=== PATIENT | male | born 1950 | race Caucasian/White ===

== ENCOUNTER 2018-01-03 16:14 | Observation (INO) | payer OTHER, MEDICARE ==
[2018-01-03] MEDS ORDERED: NITROGLYCERIN 0.4 MG/TAB SL ONE ×2 (16:56→17:43)
[2018-01-03 17:06] LABS: Absolute Lymphocytes (CBC) 1.3 K/uL (0.7-4.9); Absolute Monocytes 0.7 K/uL (0.1-1.3); Absolute Neutrophil 3.2 K/uL (1.8-8.0); Basophils % 0.9 % (0-1.3); Eosinophils % 10.6 % (0-4.4); Hematocrit 40.3 % (39.6-49.0); Lymphocytes % 21.8 % (15.3-44.8); MCH 32.4 pg (27.0-35.0); MCV 94.5 fL (80-100); MPV 7.8 fL (7.6-11.3); Monocytes % 11.2 % (3.3-12.3); RBC Red Blood Cell Count 4.27 M/uL (4.33-5.43)
[2018-01-03 17:10] LABS: Protime INR 1.03
[2018-01-03 17:22] LABS: Albumin 3.9 g/dL (3.2-5.5); Bilirubin Direct 0.1 mg/dL (0-0.2); Bilirubin Total 0.5 mg/dL (0.3-1.2); Magnesium 1.8 mg/dL (1.8-2.5); Protein, Total 7.2 g/dL (6.0-8.3)
[2018-01-03 17:25] LABS: CKMB Creatine Kinase MB 1.8 ng/ml (0.3-4.0)
[2018-01-03 17:58] LABS: Urine Blood NEGATIVE (NEG); Urine Glucose NEGATIVE (NEG); Urine Protein NEGATIVE (NEG)
[2018-01-03] MEDS ORDERED: MORPHINE 4 MG/ML SYR ONE (18:19)
[2018-01-03] MEDS ORDERED: ONDANSETRON 4 MG/2 ML VIAL ONE (18:19)
[2018-01-03 18:25] LABS: Phenytoin (Dilantin) Level 12.6 ug/ml (10.0-20.0)
--- NOTE | 2018-01-03 19:21 | EDPHYS ---
Physician Documentation [facility] Name: Robbie Dela Cruz Age: 67 yrs Sex: Male : 1950 Arrival Date: 01/03/2018 Time: 16:19 Bed 6 Private MD: ED Physician Ion Shrestha HPI: 01/03 17:00 This 67 yrs old Male presents to ER via EMS with complaints of Chest Pain > pm1 28 y/o. 17:00 The patient or guardian reports chest pain that is located primarily in the anterior pm1 aspect of left upper chest. Onset: this morning, at 08:00. The pain does not radiate. Associated signs and symptoms: Pertinent positives: Dizziness with standing, Pertinent negatives: abdominal pain, cough, diaphoresis, headache, nausea, shortness of breath, vomiting. The chest pain is described as aching. Duration: The patient or guardian reports a single episode, that is still ongoing, and worsening. Modifying factors: The symptoms are alleviated by nothing. the symptoms are aggravated by nothing. Severity of pain: in the emergency department the pain has improved is a 6 / 10. EMS care prior to arrival includes: aspirin, nitroglycerin, x 1, with partial relief of the chest pain. The patient has not recently seen a physician, the patient's primary care provider is Dr. Tello. Historical: - Allergies: 16:29 No Known Drug Allergies; ph - Home Meds: 16:29 amlodipine-benazepril 5-20 mg Oral cap 1 cap once daily [Active]; benztropine 0.5 mg ph Oral tab 1 tab 2 times per day [Active]; clonazepam 1 mg Oral tab 1 tab nightly [Active]; excitalopram 20mg daily [Active]; Latuda 120 mg Oral tab 1 tab once daily [Active]; lorapine 50mg 2 tab nightly [Active]; metoprolol tartrate 25 mg Oral tab 1 tab 2 times per day [Active]; phenobarbital 32.4 mg Oral tab 1 tab 3 times per day [Active]; Phenytoin 100mg Oral 1 tabs 3 times per day [Active]; - PMHx: 16:29 colon cancer; Depression; Hypertension; Schizophrenia; ph - Immunization history:: Adult Immunizations unknown. - Social history:: Smoking status: Patient/guardian denies using tobacco. - Ebola Screening: : No symptoms or risks identified at this time. ROS: 17:00 Constitutional: Negative for fever, chills, and weight loss, Eyes: Negative for injury, pm1 pain, redness, and discharge, ENT: Negative for injury, pain, and discharge, Neck: Negative for injury, pain, and swelling, Respiratory: Negative for shortness of breath, cough, wheezing, and pleuritic chest pain, Abdomen/GI: Negative for abdominal pain, nausea, vomiting, diarrhea, and constipation. 17:00 Back: Negative for injury and pain, : Negative for injury, bleeding, discharge, and swelling, MS/Extremity: Negative for injury and deformity, Skin: Negative for injury, rash, and discoloration, Neuro: Negative for headache, weakness, numbness, tingling, and seizure. 17:00 Cardiovascular: Positive for chest pain, Negative for edema, orthopnea, palpitations. Exam: 17:00 Constitutional: This is a well developed, well nourished patient who is awake, alert, pm1 and in no acute distress. Head/Face: Normocephalic, atraumatic. Eyes: Pupils equal round and reactive to light, extra-ocular motions intact. Lids and lashes normal. Conjunctiva and sclera are non-icteric and not injected. Cornea within normal limits. Periorbital areas with no swelling, redness, or edema. ENT: Nares patent. No nasal discharge, no septal abnormalities noted. Tympanic membranes are normal and external auditory canals are clear. Oropharynx with no redness, swelling, or masses, exudates, or evidence of obstruction, uvula midline. Mucous membranes moist. Neck: Trachea midline, no thyromegaly or masses palpated, and no cervical lymphadenopathy. Supple, full range of motion without nuchal rigidity, or vertebral point tenderness. No Meningismus. Chest/axilla: Normal chest wall appearance and motion. Nontender with no deformity. No lesions are appreciated. Cardiovascular: Regular rate and rhythm with a normal S1 and S2. No gallops, murmurs, or rubs. No pulse deficits. Respiratory: Lungs have equal breath sounds bilaterally, clear to auscultation and percussion. No rales, rhonchi or wheezes noted. No increased work of breathing, no retractions or nasal flaring. Abdomen/GI: Soft, non-tender, with normal bowel sounds. No distension or tympany. No guarding or rebound. No evidence of tenderness throughout. Back: No spinal tenderness. No costovertebral tenderness. Full range of motion. Skin: Warm, dry with normal turgor. Normal color with no rashes, no lesions, and no evidence of cellulitis. MS/ Extremity: Pulses equal, no cyanosis. Neurovascular intact. Full, normal range of motion except for flexed contracture to left wrist 17:00 ECG was reviewed by the Attending Physician. NSR 17:00 Neuro: Orientation: is normal, Motor: moves all fours, strength is 5/5 in all extremities. Vital Signs: 16:25 BP 152 / 91; Pulse 78; Resp 18; Temp 98.7; Pulse Ox 100% on R/A; Weight 102.97 kg; ph Height 6 ft. 0 in. (182.88 cm); Pain 7/10; 17:15 BP 154 / 92; Pulse 73; Resp 17; Pulse Ox 95% on R/A; dh3 17:41 BP 144 / 88; Pulse 85; Resp 16; Pulse Ox 97% on R/A; dh3 17:44 Pain 7/10; hb 18:08 BP 165 / 89; Pulse 78; Resp 16; Pulse Ox 100% on R/A; Pain 7/10; hb 18:36 BP 143 / 77 RA; Pulse 75; Resp 17; Pulse Ox 98% on R/A; dh3 18:36 BP 152 / 84 LA; Pulse 75; Resp 18; Pulse Ox 98% on R/A; dh3 19:50 BP 174 / 92; Pulse 69; Resp 12; Pulse Ox 96% on R/A; rv 19:57 BP 174 / 92; Pulse 70; Resp 12; Pulse Ox 96% ; Pain 0/10; ao 20:55 BP 135 / 96; Pulse 72; Resp 18; Pulse Ox 100% on R/A; Pain 0/10; ao 16:25 Body Mass Index 30.79 (102.97 kg, 182.88 cm) ph MDM: 16:43 Patient medically screened. pm1 17:00 Data reviewed: vital signs. Data interpreted: Pulse oximetry: on room air is 100 %. pm1 Interpretation: normal. 19:19 Physician consultation: Marlon Baltazar MD was contacted at 19:20, regarding admission, pm1 patient's condition, and will see patient in ED. 01/03 16:37 Order name: Basic Metabolic Panel pm1 01/03 16:37 Order name: BNP pm1 01/03 16:37 Order name: CBC with Diff pm1 01/03 16:37 Order name: Ckmb pm1 01/03 16:37 Order name: CPK pm1 01/03 16:37 Order name: LFT's; Complete Time: 17:40 pm1 01/03 16:37 Order name: Magnesium; Complete Time: 17:40 pm1 01/03 16:37 Order name: PT-INR; Complete Time: 17:23 pm1 01/03 16:37 Order name: Ptt, Activated; Complete Time: 17:23 pm1 01/03 16:37 Order name: Troponin (emerg Dept Use Only); Complete Time: 17:23 pm1 01/03 16:37 Order name: Basic Metabolic Panel; Complete Time: 17:40 EDMS 01/03 16:37 Order name: BNP B-Type Natriuretic Peptide; Complete Time: 17:40 EDMS 01/03 16:37 Order name: CBC with Automated Diff; Complete Time: 17:11 EDMS 01/03 16:37 Order name: CKMB Creatine Kinase MB; Complete Time: 17:40 EDMS 02 16:37 Order name: XRAY Chest (1 view); Complete Time: 20:42 pm1 01/03 16:37 Order name: EKG; Complete Time: 16:37 pm1 01/03 16:37 Order name: Creatine Phosphokinase; Complete Time: 17:40 EDMS 02 17:55 Order name: Urine Dipstick--Ancillary (enter results); Complete Time: 18:02 em1 02 18:13 Order name: Dilantin pm1 01/03 18:13 Order name: Phenobarbital pm1 01/03 18:13 Order name: Phenytoin (Dilantin) Level; Complete Time: 18:29 EDMS 01/03 18:13 Order name: Phenobarbital Level; Complete Time: 18:29 EDMS 01/03 18:29 Order name: CT Chest For PE Angio; Complete Time: 20:42 pm1 01/03 21:25 Order name: Troponin I ao 01/03 22:12 Order name: Troponin I EDPR 01/03 16:37 Order name: Cardiac monitoring; Complete Time: 16:52 pm1 01/03 16:37 Order name: EKG - Nurse/Tech; Complete Time: 16:52 pm1 01/03 16:37 Order name: IV Saline Lock; Complete Time: 16:52 pm1 01/03 16:37 Order name: Labs collected and sent; Complete Time: 16:52 pm1 01/03 16:37 Order name: O2 Per Protocol; Complete Time: 16:52 pm1 01/03 16:37 Order name: O2 Sat Monitoring; Complete Time: 16:52 pm1 01/03 16:37 Order name: Urine Dipstick-Ancillary (obtain specimen); Complete Time: 17:48 pm1 Administered Medications: 17:44 Drug: Nitroglycerin 0.4 mg Route: Sublingual; hb 17:53 Drug: Nitroglycerin 0.4 mg Route: Sublingual; hb 18:22 Follow up: Response: No adverse reaction hb 18:21 Drug: morphine 4 mg Route: IVP; Site: right antecubital; hb 21:25 Follow up: Response: No adverse reaction ao 18:22 Drug: Zofran 4 mg Route: IVP; Site: right antecubital; hb 21:26 Follow up: Response: No adverse reaction ao 19:39 Drug: Lovenox 1 mg/kg Route: Sub-Q; Site: left upper abdomen; rv 21:26 Follow up: Response: No adverse reaction ao 19:39 Drug: Metoprolol 25 mg Route: PO; rv 21:27 Follow up: Response: No adverse reaction ao Disposition: 01/04 12:40 Co-signature as Attending Physician, Ion Shrestha MD. Disposition: 01/03/18 19:20 Hospitalization ordered by Ligia Tello for Observation. Preliminary diagnosis is Chest pain, unspecified. - Bed requested for Telemetry/MedSurg (observation). - Status is Observation. ao - Condition is Stable. - Problem is new. - Symptoms have improved. UTI on Admission? No Signatures: Dispatcher [employer] Hanna Davis RN RN kl Hall, Patricia, RN RN ph Ortiz, Alex, RN RN ao Marinas, Patrick, AUDITING MANAGER AUDITING MANAGER pm1 Alta Paredes RN RN hb Starr, Gregory, MD MD Taco Muniz RN RN rv Corrections: (The following items were deleted from the chart) 01/03 20:35 19:20 Hospitalization Ordered by A Elisha DELUNA for Observation. Preliminary diagnosis is kl Chest pain, unspecified. Bed requested for Telemetry/MedSurg (observation). Status is Observation. Condition is Stable. Problem is new. Symptoms have improved. UTI on Admission? No. pm1 22:15 20:35 01/03/2018 19:20 Hospitalization Ordered by A Elisha DELUNA for Observation. ao Preliminary diagnosis is Chest pain, unspecified. Bed requested for Telemetry/MedSurg (observation). Status is Observation. Condition is Stable. Problem is new. Symptoms have improved. UTI on Admission? No. kl
--- NOTE | 2018-01-03 19:21 | ER ---
Nurse's Notes [facility] Name: Robbie Dela Cruz Age: 67 yrs Sex: Male : 1950 Arrival Date: 01/03/2018 Time: 16:19 Bed 6 Private MD: Diagnosis: Chest pain, unspecified Presentation: 01/03 16:20 Presenting complaint: EMS states: Began having L sided chest pain this morning while ph watching television, describes pain as "deep and shallow", denies radiation, N/V, SOB, reported dizziness upon standing, 12 lead showed NSR, 324 aspirin and SL nitro x 1 administered and pain improved from 6/10 down from 8/10. Transition of care: patient was not received from another setting of care. Onset of symptoms was January 03, 2018. Risk Assessment: Do you want to hurt yourself or someone else? Patient reports no desire to harm self or others. Initial Sepsis Screen: Does the patient meet any 2 criteria? No. Patient's initial sepsis screen is negative. Does the patient have a suspected source of infection? No. Patient's initial sepsis screen is negative. Care prior to arrival: Medication(s) given: ASA, 325 mg, Nitroglycerin, 0.4 mg SL x 1. 16:20 Method Of Arrival: EMS: [facility] ph 16:20 Acuity: [facility] 3 ph 16:25 Note PCP Elisha. Historical: - Allergies: 16:29 No Known Drug Allergies; ph - Home Meds: 16:29 amlodipine-benazepril 5-20 mg Oral cap 1 cap once daily [Active]; benztropine 0.5 mg ph Oral tab 1 tab 2 times per day [Active]; clonazepam 1 mg Oral tab 1 tab nightly [Active]; excitalopram 20mg daily [Active]; Latuda 120 mg Oral tab 1 tab once daily [Active]; lorapine 50mg 2 tab nightly [Active]; metoprolol tartrate 25 mg Oral tab 1 tab 2 times per day [Active]; phenobarbital 32.4 mg Oral tab 1 tab 3 times per day [Active]; Phenytoin 100mg Oral 1 tabs 3 times per day [Active]; - PMHx: 16:29 colon cancer; Depression; Hypertension; Schizophrenia; ph - Immunization history:: Adult Immunizations unknown. - Social history:: Smoking status: Patient/guardian denies using tobacco. - Ebola Screening: : No symptoms or risks identified at this time. Screenin:30 Abuse screen: Denies threats or abuse. Denies injuries from another. Nutritional ph screening: No deficits noted. Tuberculosis screening: No symptoms or risk factors identified. Fall Risk None identified. Assessment: 16:31 General: Appears in no apparent distress. comfortable, well groomed, Behavior is calm, ph cooperative, appropriate for age, Denies fever, feeling ill. Pain: Complains of pain in anterior aspect of left upper chest and left breast Pain does not radiate. Pain currently is 7 out of 10 on a pain scale. Pain began " this morning". Neuro: Level of Consciousness is awake, alert, obeys commands, Oriented to person, place, time, situation, Pt noted to have flaccidity to L hand and slurred speech, pt reports that this is his baseline, states, " I was born like this.". Cardiovascular: Reports chest pain, lightheadedness, Denies nausea, palpitations, shortness of breath, vomiting, Capillary refill < 3 seconds Patient's skin is warm and dry. Rhythm is regular Chest pain is located in left anterior chest wall. Respiratory: Airway is patent Respiratory effort is even, unlabored, Respiratory pattern is regular, symmetrical. GI: No signs and/or symptoms were reported involving the gastrointestinal system. Derm: Skin is intact, is healthy with good turgor, Skin is pink, warm \\T\\ dry. Musculoskeletal: Circulation, motion, and sensation intact. Range of motion: intact in all extremities. 16:50 Reassessment: Nitro ordered, medication unavailable in [facility], request faxed to pharmacy. JOHANNA Rooney notified. 17:45 Reassessment: Pt reports pain 6-7/10, Nitro administered as ordered. JOHANNA samuels notified. 17:53 Reassessment: Pt reports pain unchanged, nitro repeated. JOHANNA Rooney notified. 18:09 Reassessment: Pt reports pain still 7/10. JOHANNA Rooney notified at bedside. 18:23 Reassessment: Pt reports pain 8/10, JOHANNA Rooney notified at bedside, morphine and zofran hb administered as ordered. VSS. Family remains at bedside. 19:49 General: Appears in no apparent distress. comfortable, Behavior is calm, cooperative, ao appropriate for age. Pain: Complains of pain in chest Pain currently is 6 out of 10 on a pain scale. Neuro: Level of Consciousness is awake, alert, obeys commands, Oriented to person, place, time, situation, Moves all extremities. Speech is normal, Facial symmetry appears normal. Cardiovascular: Heart tones S1 S2 Capillary refill < 3 seconds Patient's skin is warm and dry. Chest pain is located in left anterior chest wall. Respiratory: Airway is patent Respiratory effort is even, unlabored, Respiratory pattern is regular, symmetrical. GI: Abdomen is non-distended. : No signs and/or symptoms were reported regarding the genitourinary system. EENT: No signs and/or symptoms were reported regarding the EENT system. Derm: Skin is intact, is healthy with good turgor, Skin is pink, warm \\T\\ dry. Musculoskeletal: Circulation, motion, and sensation intact. Range of motion: intact in all extremities. 20:55 Reassessment: Patient appears in no apparent distress at this time. Patient and/or ao family updated on plan of care and expected duration. Pain level reassessed. Patient is alert, oriented x 3, equal unlabored respirations, skin warm/dry/pink. Patient to be taking to room as he get admitted to the hospital. 22:00 Reassessment: Report called to WHIT Rawls. ao Vital Signs: 16:25 BP 152 / 91; Pulse 78; Resp 18; Temp 98.7; Pulse Ox 100% on R/A; Weight 102.97 kg; ph Height 6 ft. 0 in. (182.88 cm); Pain 7/10; 17:15 BP 154 / 92; Pulse 73; Resp 17; Pulse Ox 95% on R/A; dh3 17:41 BP 144 / 88; Pulse 85; Resp 16; Pulse Ox 97% on R/A; dh3 17:44 Pain 7/10; hb 18:08 BP 165 / 89; Pulse 78; Resp 16; Pulse Ox 100% on R/A; Pain 7/10; hb 18:36 BP 143 / 77 RA; Pulse 75; Resp 17; Pulse Ox 98% on R/A; dh3 18:36 BP 152 / 84 LA; Pulse 75; Resp 18; Pulse Ox 98% on R/A; dh3 19:50 BP 174 / 92; Pulse 69; Resp 12; Pulse Ox 96% on R/A; rv 19:57 BP 174 / 92; Pulse 70; Resp 12; Pulse Ox 96% ; Pain 0/10; ao 20:55 BP 135 / 96; Pulse 72; Resp 18; Pulse Ox 100% on R/A; Pain 0/10; ao 16:25 Body Mass Index 30.79 (102.97 kg, 182.88 cm) ph ED Course: 16:19 Patient arrived in ED. ph 16:23 Inserted saline lock: 20 gauge in right antecubital area, using aseptic technique. dh3 Blood collected. 16:25 Triage completed. ph 16:30 Arm band placed on. EKG completed in triage. Results shown to MD. ph 16:31 Patient has correct armband on for positive identification. Placed in gown. Bed in low ph position. Call light in reach. Side rails up X 1. engineering instructor on. Pulse ox on. NIBP on. Warm blanket given. 16:32 EKG done, by ED staff, reviewed by Ion Shrestha MD. dh3 16:37 Toribio Mcgregor NP is PHCP. pm1 16:37 Ion Shrestha MD is Attending Physician. pm1 16:54 Initial lab(s) drawn, by hi, sent to lab. dh3 16:56 Patient maintains SpO2 saturation greater than 95% on room air. ph 16:57 X-ray completed. Portable x-ray completed in exam room. Patient tolerated procedure mh1 well. 16:58 XRAY Chest (1 view) In Process Unspecified. EDMS 17:48 Alta Paredes, WHIT is Primary Nurse. hb 18:54 CT Chest For PE Angio In Process Unspecified. EDMS 19:20 Ligia Tello MD is Hospitalizing Provider. pm1 22:13 No provider procedures requiring assistance completed. Patient admitted, IV remains in ao place. Administered Medications: 17:44 Drug: Nitroglycerin 0.4 mg Route: Sublingual; hb 17:53 Drug: Nitroglycerin 0.4 mg Route: Sublingual; hb 18:22 Follow up: Response: No adverse reaction hb 18:21 Drug: morphine 4 mg Route: IVP; Site: right antecubital; hb 21:25 Follow up: Response: No adverse reaction ao 18:22 Drug: Zofran 4 mg Route: IVP; Site: right antecubital; hb 21:26 Follow up: Response: No adverse reaction ao 19:39 Drug: Lovenox 1 mg/kg Route: Sub-Q; Site: left upper abdomen; rv 21:26 Follow up: Response: No adverse reaction ao 19:39 Drug: Metoprolol 25 mg Route: PO; rv 21:27 Follow up: Response: No adverse reaction ao Outcome: 19:20 Decision to Hospitalize by Provider. pm1 22:14 Admitted to Med/surg accompanied by tech, room 204, with chart, Report called to michael Rawls RN 22:14 Condition: stable 22:14 Instructed on the need for admit. 22:15 Patient left the ED. ao Signatures: Dispatcher [employer] EDMS Tessy Box 1 Sosa Espinosa, WHIT SHERMAN Brian Lebron RN RN ao Marinas, Patrick, DEPUTY FIRE CHIEF DEPUTY FIRE CHIEF pm1 Alta Paredes RN RN Tana Rogers 3 Taco Muniz RN RN rv
[2018-01-03] MEDS ORDERED: METOPROLOL TAR 25 MG TAB ONE (19:30)
[2018-01-03] MEDS ORDERED: ENOXAPARIN 100 MG/ML SYR SQ ONE (19:31)
--- NOTE | 2018-01-03 20:39 | RAD REPORT ---
EXAM DESCRIPTION: CT - Chest For Pe Angio - 01/03/2018 6:54 pm CLINICAL HISTORY: Chest pain, shortness of breath Due to technical issues, final report could not be immediately dictated. Findings were telephoned to the referring clinician at the time of the study. COMPARISON: Chest films same date TECHNIQUE: Dynamically enhanced 3 mm thick images of the chest were obtained during administration o f approximately 150mL Isovue 370 IV contrast. Coronal and oblique reconstruction images were generate d and reviewed. Exam utilizes a protocol to evaluate the pulmonary arterial tree. All CT scans are performed using dose optimization technique as appropriate and may include automated exposure control or mA/KV adjustment according to patient size. FINDINGS: No pulmonary emboli are identified. The aorta as imaged shows no acute or suspicious finding. No pericardial thickening or effusion. No infiltrate or mass in the lung parenchyma. No pleural effusion or pleural thickening. No mediastinal or hilar suspicious masses. No chest wall masses or abnormal axillary lymphadenopathy. IMPRESSION: No pulmonary emboli identified. No other significant or suspicious findings.
--- NOTE | 2018-01-03 20:41 | RAD REPORT ---
EXAM DESCRIPTION: RAD - Chest Single View - 01/03/2018 5:00 pm CLINICAL HISTORY: Left-sided chest pain COMPARISON: September 2016 TECHNIQUE: AP portable chest image was obtained 1649 hour . FINDINGS: No peripheral mass, consolidation or failure finding. Right lobectomy surgical changes are present and stable. No acute lung parenchymal process seen. Heart and vasculature are normal. No marely surable pleural effusion and no pneumothorax. No gross bony abnormality seen. No acute aortic finding s suspected. IMPRESSION: No acute cardiopulmonary process. No significant change from comparison.
[2018-01-03] MEDS ORDERED: ACETAMINOPHEN 500 MG TAB PO PRN (21:34)
[2018-01-03] MEDS ORDERED: ONDANSETRON 4 MG/2 ML VIAL IV PRN (21:34)
[2018-01-03 22:27] VITALS: BMI 30.4
[2018-01-03] MEDS: MORPHINE 4 MG/ML SYR IV PRN (23:47)
[2018-01-04 04:57] LABS: Absolute Lymphocytes (CBC) 1.2 K/uL (0.7-4.9); Absolute Monocytes 0.6 K/uL (0.1-1.3); Absolute Neutrophil 3.5 K/uL (1.8-8.0); Basophils % 0.6 % (0-1.3); Hematocrit 40.7 % (39.6-49.0); MCH 32.2 pg (27.0-35.0); MCV 96.7 fL (80-100); MPV 7.8 fL (7.6-11.3); Monocytes % 10.4 % (3.3-12.3); RBC Red Blood Cell Count 4.21 M/uL (4.33-5.43)
[2018-01-04 05:19] LABS: Potassium 4.5 mEq/L (3.6-5.0)
[2018-01-04] MEDS: MORPHINE 4 MG/ML SYR IV PRN (06:01)
[2018-01-04] MEDS ORDERED: ASPIRIN EC 81 MG TAB PO SCH (09:00)
[2018-01-04 09:51] VITALS: O2SAT 94
[2018-01-04] MEDS ORDERED: PHENOBARBITAL 32.4 MG PO SCH (10:00)
[2018-01-04] MEDS ORDERED: PHENYTOIN SODIUM 100 MG PO SCH (10:00)
[2018-01-04] MEDS ORDERED: HOME MED 1 EA UNK (Metoprolol Tartrate [Lopressor*] 25 MG) PO SCH (10:00)
--- NOTE | 2018-01-04 10:42 | EKG ---
Test Date: 2018-01-03 Test Time: 16:27:46 Dining Room Maid: [id number] MEASUREMENT RESULTS: Intervals: Rate: 73 MO: 202 QRSD: 94 QT: 370 QTc: 407 [place]: P: 51 MO: 202 QRS: 30 T: 60 INTERPRETIVE STATEMENTS: Normal sinus rhythm Normal ECG Compared to ECG 09/07/2016 21:36:31 No significant changes Electronically Signed On 01-04-18 10:41:12 CDT by Noe Angeles
--- NOTE | 2018-01-04 11:44 | HP ---
Date of Admission: 01/04/2018 SHORT-STAY SUMMARY Chief Complaint: Chest pain. History Of Present Illness: This is a 67-year-old pleasant male patient, who lives at [facility], started to have chest pain around 2 o'clock yesterday morning. The patient has had intermittent pain throughout the day yesterday and he came into emergency room yesterday evening. After he was evaluated, he was admitted to the hospital. The patient was admitted to telemetry unit. After he was admitted, he had 1 episode of chest pain last night. His pain is lasting for a short period of time. He is not able to tell exactly how long, but he says it just lasts for a short time and then goes away. It is located in the left side of the chest in the precordial region. No radiation of pain. No aggravating or relieving factor. No associated symptoms. Allergies: NO KNOWN ALLERGIES. Medications: List reviewed. Review of Systems: Cardiovascular: As mentioned above. All other systems reviewed and negative. Social History: Negative for smoking, alcohol use. Family History: Significant for hypertension, diabetes, coronary artery disease. Past Surgical History: Significant for right-sided hemicolectomy in September 2014 for colon cancer, hydrocele repair, appendectomy, skin cancer removal, partial lobectomy of the right lung in 1984 and it was not due to cancer. Past Medical History: Significant for seizure disorder, gastroesophageal reflux disease, hypertension, hyperlipidemia, colon cancer, impaired fasting glucose, diverticulosis, bladder hypertonicity, schizophrenia, allergic rhinitis , osteoarthritis at multiple sites. The patient had a cardiac cath done April 2015 and it showed normal coronary arteries. This was done at our hospital and results reviewed. Physical Examination: Vital Signs: Height 6 feet, weight 224 pounds. Temperature 97.6, pulse 66, respiratory rate 18, blood pressure 130/77, oxygen saturation 96% on room air. General: Awake, alert, oriented, not in distress. HEENT: Head atraumatic, normocephalic. Conjunctivae nonerythematous. Sclerae white. Mouth, no thrush or edema noted. Ears/Nose, no mass, lesion, discharge noted. Neck: Supple. No JVD, lymph nodes, bruit, thyromegaly noted. Lungs: Bilateral good equal air entry. Clear to auscultation. No rhonchi. No rales. Heart: Normal heart sounds, no murmur or gallop. Abdomen: Soft, bowel sounds normal. No guarding, rigidity, tenderness, mass, hepatosplenomegaly, distention, or bruit noted. Extremities: No leg edema. No calf tenderness. Skin: No rash, ulcer, cellulitis. Lymphatics: No lymph node enlargement in neck, supraclavicular, infraclavicular region. Neuro: No focal neurological deficit. Chest: Unremarkable. External Genitalia: Deferred. Rectal: Deferred. Laboratory Data: Yesterday; white count 5.8, hemoglobin 13.8, platelets 229. This morning; white count 6.1, hemoglobin 13.6, platelets 224. PT/PTT normal. Today; sodium 135, potassium 4.5, chloride 98, bicarb 30, BUN 15, creatinine 0.90, glucose 97. Troponin less than 0.03 x3. BNP less than 10. Sodium yesterday 131, potassium 4, chloride 98, bicarb 25, BUN 16, creatinine 0.89, glucose 99. Liver function tests unremarkable. Urinalysis negative. Dilantin level 12.6. Phenobarbital level 11.6. Chest x-ray, no acute intrathoracic changes. CAT scan of the chest per PE protocol done in the emergency room, no acute cardiopulmonary changes, no pulmonary embolism. EKG, normal sinus rhythm. No acute ST-T changes. Hospital Course: After the patient was evaluated in the ER, was admitted to the hospital. His VA has been ruled out by getting serial cardiac enzymes. Cardiology consultation has been requested. 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 His chest pain could be due to gastroesophageal reflux disease and I will go ahead and start him on proton pump inhibitor therapy. Discharge Medications And Instructions: 1. Continue all prior home medication. 2. Start pantoprazole 40 mg p.o. daily, take it in the morning on empty stomach, 30 minutes before breakfast. Do not take any medications with this. 3. Follow up at my office in 2 weeks. Final Diagnoses: 1. Chest pain. 2. Gastroesophageal reflux disease. 3. Hypertension. 4. Hyperlipidemia. 5. Colon cancer. 6. Impaired fasting glucose. 7. Diverticulosis. 8. Bladder hypertonicity. 9. Schizophrenia. 10. Allergic rhinitis. 11. Osteoarthritis, multiple sites. 12. Seizure disorder. JEANNIE/MODL Voice ID: [id number] [facility] H[facility]PITALRafi
[2018-01-04 14:23] VITALS: BP 157/80; TEMP 97.8
--- NOTE | 2018-01-04 15:44 | CON ---
Chief Complaint: Chest pain. History Of Present Illness: Mr. Dela Cruz has been having chest pain for about 30 years. He has had a very complete evaluation of it including a cardiac cath that was done almost 3 years ago, April 05. At that point, we knew he had very atypical chest pain and a nuclear stress test indicated apic al ischemia, but the cardiac cath was completely normal. There were not even any early mild atherosc lerotic changes. His arteries were just completely normal. He was a cigarette smoker, but quit when he was in his 20s and he has severe chronic medical problems since . He has cerebral palsy and seizure disorder. He has various musculoskeletal problems, depression, anxiety, mental retardation. Medications: Outpatient medications are naproxen, benztropine, clonazepam, phenobarbital, phenytoin, amlodipine, loxapine, lurasidone, Lexapro, metoprolol, and multivitamin. Allergies: HE HAS NO ALLERGIES. Social History: Alcohol use, none. Illegal drug use, none. Diagnostic Data: Since he has been in the hospital, cardiac enzymes are normal. Electrocardiograms are normal. The patient describes his chest pain is mostly coming on when he eats. He has had a CT angio of his chest that is normal. A chest x-ray that is normal. He has never had gallbladder surge ry. Physical Examination: General: He appears to be older than his stated age, chronically ill. He appears to have mild menta l retardation. Lungs: Clear. Heart: Normal. Abdomen: Soft. Extremities: Normal. Distal pulses are normal. Impression: I do not want to see and get another stress test or cardiac cath. This is clearly not u nstable angina. I would be in favor of doing an ultrasound of the abdomen to see if he has gallstone s. At this point, he already has an echocardiogram ordered, but I strongly recommend we do not do an other stress test. It was false positive last time and we do not have anything compelling us to do a stress test. This is clearly not unstable angina. DUNIA/MOHAMUD Voice ID: [id number] Report ID: [id number]
[2018-01-04] MEDS ORDERED: LOXAPINE PO SCH (21:00)
[2018-01-04] MEDS ORDERED: LURASIDONE HCL 120 MG PO SCH (21:00)
[2018-01-04] MEDS ORDERED: CLONAZEPAM PO SCH (21:00)
[2018-01-04] MEDS ORDERED: BENZTROPINE MESYLATE 0.5 MG PO SCH (21:00)
[2018-01-05] MEDS ORDERED: AMLODIPINE BESYLATE PO SCH (09:00)
[2018-01-05] MEDS ORDERED: ESCITALOPRAM 20 MG PO SCH (09:00)
[2018-01-05] MEDS ORDERED: LYCOPEN PO SCH (09:00)
[2018-01-05] MEDS ORDERED: NAPROXEN 500 MG PO SCH (09:00)
[2018-01-05] MEDS ORDERED: MULTIVIT MIN PO SCH (09:00)
[2018-01-05] MEDS ORDERED: [UNRECOGNIZED DRUG - OTHER] PO SCH (09:00)
[2018-01-05] MEDS ORDERED: [UNRECOGNIZED DRUG - OTHER] PO SCH (09:00)
[2018-01-05] MEDS ORDERED: LUTEIN PO SCH (09:00)
[2018-01-05] MEDS ORDERED: BENAZEPRIL PO SCH (09:00)
== END 2018-01-04 15:07 | disposition home or self-care (01) ==
LOC: ER 16:14 → ERHOLD 19:31 → 2ND 21:27
PROVIDERS: ADMIT Internal Medicine; ATTEND Internal Medicine
DX: R07.9 Chest pain, unspecified (principal); K21.9 Gastro-esophageal reflux disease without esophagitis; I10 Essential (primary) hypertension; E78.5 Hyperlipidemia, unspecified; C18.9 Malignant neoplasm of colon, unspecified; K57.90 Diverticulosis of intestine, part unspecified, without perforation or abscess without bleeding; N31.8 Other neuromuscular dysfunction of bladder; F20.9 Schizophrenia, unspecified; J30.9 Allergic rhinitis, unspecified; M15.9 Polyosteoarthritis, unspecified; G40.909 Epilepsy, unspecified, not intractable, without status epilepticus
CPT/HCPCS: 36415; 71045; 71275; 80048 ×2; 80076; 80184; 80185; 81003; 82550; 82553; 83735; 83880; 84484 ×3; 85025 ×2; 85610; 85730; 93005; 96372; 96374; 96375; 99285; G0378 ×2; J1650; J2405; Q9967

== ENCOUNTER 2018-02-12 08:59 | Emergency (ER) | payer OTHER, MEDICARE ==
[2018-02-12 10:04] LABS: Absolute Lymphocytes (CBC) 0.7 K/uL (0.7-4.9); Absolute Monocytes 0.4 K/uL (0.1-1.3); Absolute Neutrophil 2.7 K/uL (1.8-8.0); Basophils % 1.1 % (0-1.3); Eosinophils % 12.5 % (0-4.4); Hematocrit 37.8 % (39.6-49.0); Lymphocytes % 15.2 % (15.3-44.8); MCH 32.8 pg (27.0-35.0); MCV 96.7 fL (80-100); MPV 7.7 fL (7.6-11.3); Monocytes % 9.1 % (3.3-12.3); RBC Red Blood Cell Count 3.91 M/uL (4.33-5.43)
[2018-02-12 10:19] LABS: Albumin 3.2 g/dL (3.4-5.0); Bilirubin Total 0.3 mg/dL (0.2-1.0); CKMB Creatine Kinase MB 1.4 ng/mL (0.3-3.6); Potassium 3.8 mmol/L (3.5-5.1); Protein, Total 6.7 g/dL (6.4-8.2)
--- NOTE | 2018-02-12 11:12 | RAD REPORT ---
EXAM DESCRIPTION: RAD - Pelvis - 02/12/2018 10:38 am CLINICAL HISTORY: PAIN Trauma, fall COMPARISON: None FINDINGS: AP pelvis and right femur, multiple projections are submitted. No fracture or dislocation is seen. Atherosclerosis is noted. No joint effusion.
--- NOTE | 2018-02-12 11:49 | RAD REPORT ---
EXAM DESCRIPTION: RAD - Femur Right - 02/12/2018 10:38 am CLINICAL HISTORY: PAIN Trauma, fall COMPARISON: None FINDINGS: AP pelvis and right femur, multiple projections are submitted. No fracture or dislocation is seen. Atherosclerosis is noted. No joint effusion.
--- NOTE | 2018-02-12 11:58 | EDPHYS ---
Physician Documentation [facility] Name: Robbie Dela Cruz Age: 67 yrs Sex: Male : 1950 Arrival Date: 02/12/2018 Time: 09:06 Bed 15 Private MD: ED Physician Kyle Kaiser HPI: 02/12 09:12 This 67 yrs old Male presents to ER via EMS with complaints of Fall Injury. kav 09:25 Details of fall: The patient fell from an upright position, while walking. Onset: The kav symptoms/episode began/occurred acutely, 1 day(s) ago. Associated injuries: The patient sustained pelvis and right quadriceps and right hip, painful injury, right leg, painful injury. Severity of symptoms: At their worst the symptoms were mild, just prior to arrival. The patient has not experienced similar symptoms in the past. The patient has not recently seen a physician. patient reports falling from a standing position while changing the garbage bag from the kitchen trash. c/o right hip and right femur pain. 09:[address] Johnson. kav Historical: - Allergies: 09:12 No Known Drug Allergies; tw2 - Home Meds: 09:12 amlodipine-benazepril 5-20 mg Oral cap 1 cap once daily [Active]; benztropine 0.5 mg tw2 Oral tab 1 tab 2 times per day [Active]; Latuda 120 mg Oral tab 1 tab once daily [Active]; clonazepam 1 mg Oral tab 1 tab nightly [Active]; excitalopram 20mg daily [Active]; lorapine 50mg 2 tab nightly [Active]; metoprolol tartrate 25 mg Oral tab 1 tab 2 times per day [Active]; phenobarbital 32.4 mg Oral tab 1 tab 3 times per day [Active]; Phenytoin 100mg Oral 1 tabs 3 times per day [Active]; - PMHx: 09:12 colon cancer; Depression; Hypertension; Schizophrenia; tw2 - Immunization history:: Adult Immunizations up to date. - Social history:: Smoking status: Patient/guardian denies using tobacco. - Ebola Screening: : Patient denies travel to an Ebola-affected area in the 21 days before illness onset. - Family history:: not pertinent. - Hospitalizations: : No recent hospitalization is reported. ROS: 09:29 Constitutional: Negative for fever, chills, and weight loss, Eyes: Negative for injury, kav pain, redness, and discharge, ENT: Negative for injury, pain, and discharge, Neck: Negative for injury, pain, and swelling, Cardiovascular: Negative for chest pain, palpitations, and edema, Respiratory: Negative for shortness of breath, cough, wheezing, and pleuritic chest pain, Abdomen/GI: Negative for abdominal pain, nausea, vomiting, diarrhea, and constipation, Back: Negative for injury and pain, : Negative for injury, bleeding, discharge, and swelling, Skin: Negative for injury, rash, and discoloration, Neuro: Negative for headache, weakness, numbness, tingling, and seizure, Psych: Negative for depression, anxiety, suicide ideation, homicidal ideation, and hallucinations, Allergy/Immunology: Negative for hives, rash, and allergies, Endocrine: Negative for neck swelling, polydipsia, polyuria, polyphagia, and marked weight changes, Hematologic/Lymphatic: Negative for swollen nodes, abnormal bleeding, and unusual bruising. 09:29 MS/extremity: Positive for pain, of the right leg and right hip. Exam: 09:29 Constitutional: This is a well developed, well nourished patient who is awake, alert, kav and in no acute distress. Head/Face: Normocephalic, atraumatic. Eyes: Pupils equal round and reactive to light, extra-ocular motions intact. Lids and lashes normal. Conjunctiva and sclera are non-icteric and not injected. Cornea within normal limits. Periorbital areas with no swelling, redness, or edema. ENT: Nares patent. No nasal discharge, no septal abnormalities noted. Tympanic membranes are normal and external auditory canals are clear. Oropharynx with no redness, swelling, or masses, exudates, or evidence of obstruction, uvula midline. Mucous membranes moist. Neck: Trachea midline, no thyromegaly or masses palpated, and no cervical lymphadenopathy. Supple, full range of motion without nuchal rigidity, or vertebral point tenderness. No Meningismus. Chest/axilla: Normal chest wall appearance and motion. Nontender with no deformity. No lesions are appreciated. Cardiovascular: Regular rate and rhythm with a normal S1 and S2. No gallops, murmurs, or rubs. Normal PMI, no JVD. No pulse deficits. Respiratory: Lungs have equal breath sounds bilaterally, clear to auscultation and percussion. No rales, rhonchi or wheezes noted. No increased work of breathing, no retractions or nasal flaring. Abdomen/GI: Soft, non-tender, with normal bowel sounds. No distension or tympany. No guarding or rebound. No evidence of tenderness throughout. Back: No spinal tenderness. No costovertebral tenderness. Full range of motion. Skin: Warm, dry with normal turgor. Normal color with no rashes, no lesions, and no evidence of cellulitis. Neuro: Awake and alert, GCS 15, oriented to person, place, time, and situation. Cranial nerves II-XII grossly intact. Motor strength 5/5 in all extremities. Sensory grossly intact. Cerebellar exam normal. Normal gait. Psych: Awake, alert, with orientation to person, place and time. Behavior, mood, and affect are within normal limits. 09:29 Musculoskeletal/extremity: Extremities: noted in the right leg and right hip: pain, ROM: full active range of motion, in the right leg and right hip, Circulation is intact in all extremities. Pulses: noted to be 2+ in the right femoral artery and right popliteal artery, Sensation intact. Joints: the right hip displays pain at rest, tenderness, Weight bearing: can bear weight with assistance only, uses walker. Vital Signs: 09:09 BP 142 / 84; Pulse 88; Resp 17; Temp 97.7(O); Pulse Ox 95% on R/A; Weight 101.6 kg (R); tw2 Height 6 ft. 0 in. (182.88 cm); Pain 8/10; 09:34 BP 123 / 80; Pulse 80; Resp 17; Pulse Ox 95% on R/A; tw2 10:52 BP 123 / 56; Pulse 67; Resp 14; Pulse Ox 98% on R/A; tw2 11:37 BP 142 / 84; Pulse 71; Resp 11; Pulse Ox 98% on R/A; tw2 12:24 BP 142 / 84; Pulse 67; Resp 12; Pulse Ox 97% on R/A; tw2 09:09 Body Mass Index 30.38 (101.60 kg, 182.88 cm) tw2 MDM: 09:25 Medical screening is not applicable. kav 10:34 Data reviewed: vital signs, nurses notes, lab test result(s). ED course: awaiting [facility] . 02/12 09:28 Order name: CBC with Diff; Complete Time: 10:33 [facility] 02/12 09:28 Order name: CMP; Complete Time: 10:33 [facility] 02/12 09:25 Order name: Femur Right XRAY kav 02/12 09:28 Order name: CK; Complete Time: 10:33 [facility] 02/12 09:29 Order name: Ckmb; Complete Time: 10: 02/12 09:29 Order name: Troponin I; Complete Time: : [facility] 02/12 09:25 Order name: Pelvis XRAY; Complete Time: 11:55 kav Administered Medications: No medications were administered Disposition: 17:17 Co-signature as Attending Physician, Kyle Kaiser MD I agree with the assessment and kdr plan of care. Disposition: 02/12/18 11:57 Discharged to Home. Impression: Strain of muscle, fascia and tendon of right hip. - Condition is Stable. - Discharge Instructions: Muscle Strain, [id number]. - Medication Reconciliation Form, Thank You Letter, Antibiotic Education, Prescription Opioid Use form. - Follow up: Private Physician; When: 2 - 3 days; Reason: Recheck today's complaints, Continuance of care, Re-evaluation by your physician. - Problem is new. - Symptoms have improved. - Notes: f/u with pcp/dr. johnson and discuss option for home health and rehabilitation Signatures: Dispatcher [employer] EDMS Kyle Kaiser MD MD kdr Vern, Katherine, COMMUNITY SPECIALIST COMMUNITY SPECIALIST Jigna Skinner, RN RN tw2 Corrections: (The following items were deleted from the chart) 12:25 11:57 02/12/2018 11:57 Discharged to Home. Impression: Strain of muscle, fascia and tw2 tendon of right hip. Condition is Stable. Discharge Instructions: Muscle Strain, [id number]. Forms are Medication Reconciliation Form, Thank You Letter, Antibiotic Education, Prescription Opioid Use. Follow up: Private Physician; When: 2 - 3 days; Reason: Recheck today's complaints, Continuance of care, Re-evaluation by your physician. Problem is new. Symptoms have improved. kav
--- NOTE | 2018-02-12 11:58 | ER ---
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 Transition of care: patient was received from another setting of care (long-term care facility), [facility]. Onset of symptoms was February 12, 2018. Risk Assessment: Do you want to hurt yourself or someone else? Patient reports no desire to harm self or others. Initial Sepsis Screen: Does the patient meet any 2 criteria? No. Patient's initial sepsis screen is negative. Does the patient have a suspected source of infection? No. Patient's initial sepsis screen is negative. Care prior to arrival: None. 09:00 Method Of Arrival: EMS: [facility] tw2 09:00 Acuity: SANT[place] 3 tw2 Historical: - Allergies: 09:12 No Known Drug Allergies; tw2 - Home Meds: 09:12 amlodipine-benazepril 5-20 mg Oral cap 1 cap once daily [Active]; benztropine 0.5 mg tw2 Oral tab 1 tab 2 times per day [Active]; Latuda 120 mg Oral tab 1 tab once daily [Active]; clonazepam 1 mg Oral tab 1 tab nightly [Active]; excitalopram 20mg daily [Active]; lorapine 50mg 2 tab nightly [Active]; metoprolol tartrate 25 mg Oral tab 1 tab 2 times per day [Active]; phenobarbital 32.4 mg Oral tab 1 tab 3 times per day [Active]; Phenytoin 100mg Oral 1 tabs 3 times per day [Active]; - PMHx: 09:12 colon cancer; Depression; Hypertension; Schizophrenia; tw2 - Immunization history:: Adult Immunizations up to date. - Social history:: Smoking status: Patient/guardian denies using tobacco. - Ebola Screening: : Patient denies travel to an Ebola-affected area in the 21 days before illness onset. - Family history:: not pertinent. - Hospitalizations: : No recent hospitalization is reported. Screenin:13 Abuse screen: Denies threats or abuse. Nutritional screening: No deficits noted. tw2 Tuberculosis screening: No symptoms or risk factors identified. Fall Risk None identified. Assessment: 09:14 General: Appears in no apparent distress. Behavior is calm, cooperative, appropriate tw2 for age. Pain: Complains of pain in right hip and right leg. Neuro: Level of Consciousness is awake, alert, obeys commands, Oriented to person, place, time, situation. Cardiovascular: Denies chest pain, shortness of breath, Heart tones S1 S2 Capillary refill < 3 seconds Patient's skin is warm and dry. Respiratory: Airway is patent Respiratory effort is even, unlabored, Respiratory pattern is regular, symmetrical, Breath sounds are clear bilaterally. GI: Abdomen is round non-distended, Bowel sounds present X 4 quads. : Reports urinary frequency. EENT: No signs and/or symptoms were reported regarding the EENT system. Derm: No signs and/or symptoms reported regarding the dermatologic system. Skin is intact, is healthy with good turgor, Skin temperature is warm. Musculoskeletal: Circulation, motion, and sensation intact. 10:15 Reassessment: Patient appears in no apparent distress at this time. No changes from tw2 previously documented assessment. Patient and/or family updated on plan of care and expected duration. Pain level reassessed. Patient is alert, oriented x 3, equal unlabored respirations, skin warm/dry/pink. 11:15 Reassessment: Patient appears in no apparent distress at this time. No changes from tw2 previously documented assessment. Patient and/or family updated on plan of care and expected duration. Pain level reassessed. Patient is alert, oriented x 3, equal unlabored respirations, skin warm/dry/pink. 11:38 Reassessment: Patient appears in no apparent distress at this time. No changes from tw2 previously documented assessment. Patient and/or family updated on plan of care and expected duration. Pain level reassessed. Patient is alert, oriented x 3, equal unlabored respirations, skin warm/dry/pink. 12:24 Reassessment: Patient appears in no apparent distress at this time. No changes from tw2 previously documented assessment. Patient and/or family updated on plan of care and expected duration. Pain level reassessed. Patient is alert, oriented x 3, equal unlabored respirations, skin warm/dry/pink. Vital Signs: 09:09 BP 142 / 84; Pulse 88; Resp 17; Temp 97.7(O); Pulse Ox 95% on R/A; Weight 101.6 kg (R); tw2 Height 6 ft. 0 in. (182.88 cm); Pain 8/10; 09:34 BP 123 / 80; Pulse 80; Resp 17; Pulse Ox 95% on R/A; tw2 10:52 BP 123 / 56; Pulse 67; Resp 14; Pulse Ox 98% on R/A; tw2 11:37 BP 142 / 84; Pulse 71; Resp 11; Pulse Ox 98% on R/A; tw2 12:24 BP 142 / 84; Pulse 67; Resp 12; Pulse Ox 97% on R/A; tw2 09:09 Body Mass Index 30.38 (101.60 kg, 182.88 cm) tw2 ED Course: 09:05 Placed in gown. Bed in low position. Side rails up X2. parking meter collector on. Pulse ox on. tw2 NIBP on. Warm blanket given. 09:06 Patient arrived in ED. sg 09:07 Jigna Steele, RN is Primary Nurse. tw 09:09 Triage completed. tw2 09:09 Arm band placed on. tw2 09:12 [facility] Barron [facility] kav 09:12 Kyle Kaiser MD is Attending Physician. kav 09:43 Troponin I Sent. tw 09:43 Ckmb Sent. tw2 09:44 CK Sent. tw2 09:44 CMP Sent. tw 09:44 CBC with Diff Sent. tw2 09:47 Initial lab(s) drawn, by ar, sent to lab. Inserted saline lock: 20 gauge in right mh5 antecubital area, using aseptic technique. Blood collected. 10:37 Femur Right XRAY In Process Unspecified. EDMS 10:37 Pelvis XRAY In Process Unspecified. EDMS 12:24 No provider procedures requiring assistance completed. IV discontinued, intact, tw2 bleeding controlled, No redness/swelling at site. Pressure dressing applied. Administered Medications: No medications were administered Outcome: 11:57 Discharge ordered by MD. guerrero 12:24 Discharged to tw2 12:24 Discharged to home via wheelchair, with family. 12:24 Condition: stable 12:24 Discharge instructions given to patient, family, Instructed on discharge instructions, follow up and referral plans. Demonstrated understanding of instructions, follow-up care. 12:25 Patient left the ED. tw2 Signatures: Dispatcher [employer] EDHaroldo Chaves RN WHIT Candice Barron, OB/GYN DOCTOR OB/GYN DOCTOR Jigna Skinner RN RN 2 Chandni Hui [facility] Corrections: (The following items were deleted from the chart) 11:22 10:52 Pulse 67bpm; Resp 14bpm; Pulse Ox 98% RA; tw2 tw2
[2018-02-12 12:29] VITALS: TEMP 97.7
[2018-02-12 12:32] VITALS: BP 142/84
[2018-02-12 12:34] VITALS: O2SAT 97
== END 2018-02-12 12:25 | disposition home or self-care (01) ==
LOC: ER 08:59
DX: S76.011A Strain of muscle, fascia and tendon of right hip, initial encounter (principal); W01.0XXA Fall on same level from slipping, tripping and stumbling without subsequent striking against object, initial encounter; Y93.01 Activity, walking, marching and hiking; Y92.019 Unspecified place in single-family (private) house as the place of occurrence of the external cause; Z85.038 Personal history of other malignant neoplasm of large intestine; I10 Essential (primary) hypertension
CPT/HCPCS: 36415; 72170; 80053; 82550; 82553; 84484; 85025; 99284

== ENCOUNTER 2018-06-19 19:46 | Emergency (ER) | payer OTHER, MEDICARE ==
--- OUTSIDE RECORDS SUMMARY | 2018-06-19 19:48 | XMS REPORT | Continuity of Care Document ---
:1950 Author Organization Interface Problems Problem Status Onset Date Classification Date Comments Source Reported Medications Medication Details Route Status Patient Ordering Order Source Instructions Provider Date Allergies, Adverse Reactions, Alerts Substance Category Reaction Severity Reaction Status Date Comments Source type Reported Immunizations Immunization Date Given Site Status Last Updated Comments Source Results Order Results Value Reference Date Interpretation Comments Source Name Range Vital Signs Vital Sign Value Date Comments Source Encounters Location Location Encounter Encounter Reason Attending ADM DC Status Source Details Type Number For Provider Date Date Visit Outpatient [id number] LEEANN 03/18 [facility] Outpatient [id number] LEEANN 03/17 [facility] Procedures Procedure Code Date Perfomer Comments Source
[2018-06-19 21:06] LABS: Absolute Lymphocytes (CBC) 0.7 K/uL (0.7-4.9); Absolute Monocytes 0.6 K/uL (0.1-1.3); Basophils % 0.8 % (0-1.3); Eosinophils % 3.9 % (0-4.4); Hematocrit 39.6 % (39.6-49.0); Lymphocytes % 12.2 % (15.3-44.8); MCH 32.3 pg (27.0-35.0); MCV 94.9 fL (80-100); MPV 7.2 fL (7.6-11.3); Monocytes % 10.5 % (3.3-12.3); RBC Red Blood Cell Count 4.17 M/uL (4.33-5.43)
[2018-06-19 21:09] LABS: Protime INR 1.07
[2018-06-19 21:21] LABS: ALT/SGPT 36 U/L (12-78); AST/SGOT 28 U/L (15-37); Albumin 3.4 g/dL (3.4-5.0); Alkaline Phosphatase 87 U/L (45-117); BUN Blood Urea Nitrogen 8 mg/dL (7-18); Bicarbonate 26 mmol/L (21-32); Bilirubin Direct 0.1 mg/dL (0-0.2); Bilirubin Total 0.3 mg/dL (0.2-1.0); Glucose Level 109 mg/dL (74-106); Potassium 3.6 mmol/L (3.5-5.1); Sodium Level 134 mmol/L (136-145)
[2018-06-19 22:21] LABS: Barbiturates POSITIVE (NEGATIVE); Benzodiazepines NEGATIVE (NEGATIVE); Cocaine NEGATIVE (NEGATIVE); METHAMPHETAM NEGATIVE (NEGATIVE); Methadone NEGATIVE (NEGATIVE); Opiates NEGATIVE (NEGATIVE); Phencyclidine NEGATIVE (NEGATIVE); THC Cannibis NEGATIVE (NEGATIVE)
[2018-06-19 23:09] LABS: Urine Blood NEGATIVE (NEG); Urine Glucose NEGATIVE (NEG); Urine Protein NEGATIVE (NEG); Urine Specific Gravity 1.015 (1.005-1.030); Urine pH 8.5 (5.0-7.0)
[2018-06-19] MEDS ORDERED: METOPROLOL TAR 25 MG TAB ONE (23:39)
[2018-06-19] MEDS ORDERED: AMLODIPINE 5 MG TAB ONE (23:39)
[2018-06-20] MEDS ORDERED: BENAZEPRIL 20 MG TAB ONE
--- NOTE | 2018-06-20 00:54 | EDPHYS ---
Physician Documentation [facility] Name: Robbie Dela Cruz Age: 67 yrs Sex: Male : 1950 Arrival Date: 06/19/2018 Time: 19:47 Bed 17 Private MD: ED Physician Misael Brewer HPI: 06/19 21:57 This 67 yrs old Male presents to ER via EMS with complaints of hallucinations.jmm 21:57 The patient presents to the emergency department with psychosis, has experienced jmm auditory hallucinations, voices are telling patient to commit sucide. Onset: The symptoms/episode began/occurred today. Past psychiatric history: Psychiatric medications include: latuda, loxapine. Associated signs and symptoms: Pertinent negatives: homicidal ideation, shortness of breath. Patient states he is hearing the devil whom is telling him to kill himself. . Historical: - Allergies: 20:06 No Known Allergies; ao - Home Meds: 20:06 Latuda 120 mg Oral tab 1 tab once daily [Active]; phenobarbital 100 mg oral tab 1 tab ao every 8 hours [Active]; excitalopram 20mg daily [Active]; metoprolol tartrate 25 mg Oral tab 1 tab 2 times per day [Active]; amlodipine-benazepril 5-20 mg Oral cap 1 cap once daily [Active]; benztropine 0.5 mg Oral tab 1 tab 2 times per day [Active]; Phenytoin 100mg Oral 1 tabs 3 times per day [Active]; lorapine 50mg 2 tab nightly [Active]; clonazepam 1 mg Oral tab 1 tab nightly [Active]; - PMHx: 20:06 colon cancer; Depression; Hypertension; Schizophrenia; ao 06/20 00:24 Seizures; ak1 - PSHx: 06/19 20:06 None; ao - Immunization history:: Adult Immunizations up to date. - Social history:: Smoking status: Patient/guardian denies using tobacco, Patient/guardian denies using alcohol, street drugs. - Ebola Screening: : Patient negative for fever greater than or equal to 101.5 degrees Fahrenheit, and additional compatible Ebola Virus Disease symptoms Patient denies exposure to infectious person Patient denies travel to an Ebola-affected area in the 21 days before illness onset. ROS: 21:57 Constitutional: Negative for fever, chills, and weight loss, Eyes: Negative for injury, jmm pain, redness, and discharge, Neck: Negative for injury, pain, and swelling, Cardiovascular: Negative for chest pain, palpitations, and edema, Respiratory: Negative for shortness of breath, cough, wheezing, and pleuritic chest pain, Abdomen/GI: Negative for abdominal pain, nausea, vomiting, diarrhea, and constipation, Back: Negative for injury and pain, : Negative for injury, bleeding, discharge, and swelling, MS/Extremity: Negative for injury and deformity, Skin: Negative for injury, rash, and discoloration, Neuro: Negative for headache, weakness, numbness, tingling, and seizure. 21:57 Psych: Positive for auditory hallucinations. 21:57 All other systems are negative. Exam: 21:57 Constitutional: This is a well developed, well nourished patient who is awake, alert, jmm and in no acute distress. Head/Face: atraumatic. Eyes: EOMI, no conjunctival erythema appreciated ENT: Moist Mucus Membranes Neck: Trachea midline, Supple Chest/axilla: Normal chest wall appearance and motion. Cardiovascular: Regular rate and rhythm. No edema appreciated Respiratory: Normal respirations, no respiratory distress appreciated Abdomen/GI: Non distended, soft Back: Normal ROM Skin: General appearance color normal MS/ Extremity: Moves all extremities, no obvious deformities appreciated, no edema noted to the lower extremities Neuro: Awake and alert, normal gait 21:57 Psych: Behavior/mood is pleasant, cooperative, Delusions/hallucinations are present and described as Auditory. Devil is telling him to kill himself. . Vital Signs: 20:01 BP 177 / 86; Pulse 90; Resp 16; Temp 99.1(O); Pulse Ox 95% on R/A; Weight 101.6 kg (R); ao Height 6 ft. 0 in. (182.88 cm); Pain 0/10; 23:14 BP 138 / 89; Pulse 64; Resp 16; Pulse Ox 95% on R/A; ak1 23:43 BP 131 / 77; Pulse 60; Resp 18; Temp 97.8; Pulse Ox 95% ; Pain 0/10; ak1 06/20 00:13 BP 130 / 85; Pulse 56; Resp 16; Temp 97.8(O); Pulse Ox 96% on R/A; Pain 0/10; ak1 01:17 BP 120 / 83; Pulse 59; Resp 16 S; Pulse Ox 96% on R/A; cc3 02:17 BP 149 / 80; Pulse 58; Resp 16 S; Pulse Ox 98% on R/A; cc3 06/19 20:01 Body Mass Index 30.38 (101.60 kg, 182.88 cm) ao MDM: 06/19 20:12 Patient medically screened. [facility] 21:57 Data reviewed: vital signs, nurses notes. Counseling: I had a detailed discussion with [facility] the patient and/or guardian regarding:. 22:04 Counseling: I had a detailed discussion with the patient and/or guardian regarding: the [facility] historical points, exam findings, and any diagnostic results supporting the discharge/admit diagnosis, lab results, the need for outpatient follow up. Transition of care: After a detail discussion of the patient's case, care is transferred to Misael Brewer MD. 06/19 20:20 Order name: Acetaminophen; Complete Time: 21:42 [facility] 06/19 20:20 Order name: Basic Metabolic Panel; Complete Time: 21:42 [facility] 06/19 20:20 Order name: CBC with Diff; Complete Time: 21:42 [facility] 06/19 20:20 Order name: ETOH Level; Complete Time: 21:42 [facility] 06/19 20:20 Order name: Hepatic Function; Complete Time: 21:42 [facility] 06/19 20:20 Order name: PT-INR; Complete Time: 21:42 [facility] 06/19 20:20 Order name: Ptt, Activated; Complete Time: 21:42 [facility] 06/19 20:20 Order name: Salicylate; Complete Time: 21:42 [facility] 06/19 20:20 Order name: Urine Drug Screen; Complete Time: 23:13 [facility] 06/19 21:46 Order name: Urine Dipstick--Ancillary (enter results); Complete Time: 23:13 ds4 06/19 23:16 Order name: Phenobarbital [facility] 06/19 23:16 Order name: Dilantin [facility] 06/19 20:20 Order name: EKG; Complete Time: 20:40 [facility] 06/19 20:20 Order name: EKG - Nurse/Tech; Complete Time: 20:40 [facility] 06/19 20:20 Order name: IV Saline Lock; Complete Time: 20:40 [facility] 06/19 20:20 Order name: Labs collected and sent; Complete Time: 20:40 [facility] 06/19 20:20 Order name: Urine Dipstick-Ancillary (obtain specimen); Complete Time: 21:45 [facility] Administered Medications: 23:35 Drug: Norvasc 5 mg Route: PO; cc3 06/20 00:13 Follow up: Response: No adverse reaction 3 06/19 23:35 Drug: Lopressor 25 mg Route: PO; cc3 06/20 00:13 Follow up: Response: No adverse reaction cc3 00:00 Drug: benazepril 20 mg Route: PO; cc3 01:00 Follow up: Response: No adverse reaction cc3 Disposition: 06/19 22:05 Co-signature as Attending Physician, Misael Brewer MD. [facility] Disposition: 06/20/18 00:52 Transfer ordered to Psych Facility. Diagnosis are Schizophrenia, Essential (primary) hypertension, Major depressive disorder, recurrent. - Reason for transfer: Higher level of care. - Accepting physician is to henry trujillo. - Condition is Stable. - Problem is new. - Symptoms have worsened. Signatures: Dispatcher [employer] EDMisael Ortiz MD MD cha Mickail, Joel, PA PA [facility] Jane Contreras RN RN akBrian Bautista RN RN Lisbeth Gold cc3 Corrections: (The following items were deleted from the chart) 06/20 02:56 00:52 06/20/2018 00:52 Transfer ordered to Psych Facility. Diagnosis is Schizophrenia; ak1 Essential (primary) hypertension; Major depressive disorder, recurrent. Reason for transfer: Higher level of care. Accepting physician is to henry trujillo. Condition is Stable. Problem is new. Symptoms have worsened. gen
--- NOTE | 2018-06-20 00:54 | ER ---
Nurse's Notes [facility] Name: Robbie Dela Cruz Age: 67 yrs Sex: Male : 1950 Arrival Date: 06/19/2018 Time: 19:47 Bed 17 Private MD: Diagnosis: Schizophrenia;Essential (primary) hypertension;Major depressive disorder, recurrent Presentation: 06/19 19:55 Presenting complaint: EMS states: Patient states, " Hearing the devil telling him to ao kill himself". Patient states he doesn't want to hurt himself of anyone else and has hearing the devil talking to him for the past two days. Patient states had a similar episode back in the s. Transition of care: patient was not received from another setting of care. Onset of symptoms was April 18, 2018. Risk Assessment: Do you want to hurt yourself or someone else? Other: Patient denies however hears the devil telling to kill himself. Initial Sepsis Screen: Does the patient meet any 2 criteria? No. Patient's initial sepsis screen is negative. Does the patient have a suspected source of infection? No. Patient's initial sepsis screen is negative. Care prior to arrival: None. 19:55 Method Of Arrival: EMS: [facility] ao 19:55 Acuity: SANTIAGO 2 ao Triage Assessment: 06/20 00:15 General: Appears in no apparent distress. distressed, Behavior is calm, cooperative. ak1 Pain: Denies pain. Historical: - Allergies: 06/19 20:06 No Known Allergies; ao - Home Meds: 20:06 Latuda 120 mg Oral tab 1 tab once daily [Active]; phenobarbital 100 mg oral tab 1 tab ao every 8 hours [Active]; excitalopram 20mg daily [Active]; metoprolol tartrate 25 mg Oral tab 1 tab 2 times per day [Active]; amlodipine-benazepril 5-20 mg Oral cap 1 cap once daily [Active]; benztropine 0.5 mg Oral tab 1 tab 2 times per day [Active]; Phenytoin 100mg Oral 1 tabs 3 times per day [Active]; lorapine 50mg 2 tab nightly [Active]; clonazepam 1 mg Oral tab 1 tab nightly [Active]; - PMHx: 20:06 colon cancer; Depression; Hypertension; Schizophrenia; ao 06/20 00:24 Seizures; ak1 - PSHx: 06/19 20:06 None; ao - Immunization history:: Adult Immunizations up to date. - Social history:: Smoking status: Patient/guardian denies using tobacco, Patient/guardian denies using alcohol, street drugs. - Ebola Screening: : Patient negative for fever greater than or equal to 101.5 degrees Fahrenheit, and additional compatible Ebola Virus Disease symptoms Patient denies exposure to infectious person Patient denies travel to an Ebola-affected area in the 21 days before illness onset. Screenin/17 00:13 Abuse screen: Denies threats or abuse. Denies injuries from another. Nutritional ak1 screening: No deficits noted. Tuberculosis screening: No symptoms or risk factors identified. Fall Risk None identified. Assessment: 06/19 20:30 General: Appears in no apparent distress. comfortable, Behavior is calm, cooperative. cc3 Pain: Denies pain. Neuro: Level of Consciousness is awake, alert, obeys commands, Oriented to person, place. Cardiovascular: Denies chest pain. Respiratory: Airway is patent Respiratory effort is even, unlabored, Respiratory pattern is regular, symmetrical. GI: Abdomen is round obese. : No signs and/or symptoms were reported regarding the genitourinary system. EENT: No signs and/or symptoms were reported regarding the EENT system. Derm: No signs and/or symptoms reported regarding the dermatologic system. Musculoskeletal: Circulation, motion, and sensation intact. Range of motion: limited in left upper and left lower extremities. 21:20 Reassessment: Patient appears in no apparent distress at this time. Patient and/or cc3 family updated on plan of care and expected duration. Pain level reassessed. 22:30 Reassessment: Patient appears in no apparent distress at this time. Patient and/or cc3 family updated on plan of care and expected duration. Pain level reassessed. 23:20 Reassessment: Patient appears in no apparent distress at this time. Patient and/or cc3 family updated on plan of care and expected duration. Pain level reassessed. 06/20 00:15 Reassessment: [place] Operator of [facility] named Ritu called and took cc3 details of the patient and said she'll call back later after she speaks with their physician. 00:28 Reassessment: nurse to nurse with Radha at [facility]. nurse to nurse with Sharyn at [address] . 01:19 Reassessment: Patient appears in no apparent distress at this time. Patient and/or cc3 family updated on plan of care and expected duration. Pain level reassessed. Patient comfortably sleeping kept undisturbed. 02:20 Reassessment: Patient appears in no apparent distress at this time. Patient and/or cc3 family updated on plan of care and expected duration. Pain level reassessed. Vital Signs: 06/19 20:01 BP 177 / 86; Pulse 90; Resp 16; Temp 99.1(O); Pulse Ox 95% on R/A; Weight 101.6 kg (R); ao Height 6 ft. 0 in. (182.88 cm); Pain 0/10; 23:14 BP 138 / 89; Pulse 64; Resp 16; Pulse Ox 95% on R/A; ak1 23:43 BP 131 / 77; Pulse 60; Resp 18; Temp 97.8; Pulse Ox 95% ; Pain 0/10; ak1 06/20 00:13 BP 130 / 85; Pulse 56; Resp 16; Temp 97.8(O); Pulse Ox 96% on R/A; Pain 0/10; ak1 01:17 BP 120 / 83; Pulse 59; Resp 16 S; Pulse Ox 96% on R/A; cc3 02:17 BP 149 / 80; Pulse 58; Resp 16 S; Pulse Ox 98% on R/A; cc3 06/19 20:01 Body Mass Index 30.38 (101.60 kg, 182.88 cm) ao ED Course: 06/19 19:47 Patient arrived in ED. al2 20:00 Triage completed. ao 20:01 Arm band placed on right wrist. Patient placed in an exam room, on a stretcher, in view ao of staff members, on pulse oximetry, Patient notified of wait time. 20:02 Harjit Aquino PA is PHCP. chilo 20:02 Misael Brewer MD is Attending Physician. chilo 20:21 Lisbeth Grant is Primary Nurse. cc3 20:30 Inserted saline lock: 20 gauge in right antecubital area, using aseptic technique. cc3 Blood collected. 20:41 EKG done, by ED staff, reviewed by Misael Brewer MD. ds4 21:46 Urine Drug Screen Sent. ds4 06/20 00:13 Patient has correct armband on for positive identification. Bed in low position. Call ak1 light in reach. Side rails up X2. Pulse ox on. NIBP on. 02:33 Report given to WHIT Lara for continuity of care. cc3 02:54 No provider procedures requiring assistance completed. IV discontinued, intact, ak bleeding controlled, No redness/swelling at site. Pressure dressing applied. Administered Medications: 06/19 23:35 Drug: Norvasc 5 mg Route: PO; cc3 06/20 00:13 Follow up: Response: No adverse reaction cc3 06/19 23:35 Drug: Lopressor 25 mg Route: PO; cc3 06/20 00:13 Follow up: Response: No adverse reaction cc3 00:00 Drug: benazepril 20 mg Route: PO; cc3 01:00 Follow up: Response: No adverse reaction cc3 Outcome: 00:52 ER care complete, transfer ordered by . [facility] 02:54 Transferred by ground EMS Transfer form completed. Note: report given to lorna at [address] [place] [address]. report given to Bryce with EMS 02:54 Condition: stable 02:54 Instructed on the need for transfer. 02:56 Patient left the ED. [facility] Signatures: Misael Brewer MD MD cha Mickail, Joel, PA PA jmm Swanson, Donovan ds4 Jane Contreras RN RN ak1 Brian Lebron RN RN ao Love, Angelica al2 Cordel, Charlene cc3
[2018-06-20 00:55] LABS: Phenytoin (Dilantin) Level 11.7 ug/mL (10.0-20.0)
[2018-06-20 03:23] VITALS: TEMP 97.8
[2018-06-20 03:26] VITALS: BP 149/80; O2SAT 98
--- NOTE | 2018-06-20 08:04 | EKG ---
Test Date: 2018-06-19 Test Time: 20:32:32 Channel Development Director: SHY MEASUREMENT RESULTS: Intervals: Rate: 79 [place]: 192 QRSD: 86 QT: 378 QTc: 433 [place]: P: 58 [place]: 192 QRS: 47 T: 65 INTERPRETIVE STATEMENTS: Normal sinus rhythm Normal ECG Compared to ECG 01/03/2018 16:27:46 No significant changes Electronically Signed On 06-20-18 08:03:00 AB INITIO ETL DEVELOPER by Noe Angeles
== END 2018-06-20 02:56 ==
LOC: ER 19:46
DX: F20.9 Schizophrenia, unspecified (principal); I10 Essential (primary) hypertension; F33.9 Major depressive disorder, recurrent, unspecified; Z79.899 Other long term (current) drug therapy
CPT/HCPCS: 36415; 80048; 80076; 80184; 80185; 80307; 80320; 80329; 81003; 85025; 85610; 85730; 93005; 99285

== ENCOUNTER 2018-08-06 13:40 | Inpatient (IN) | payer OTHER, MEDICARE ==
--- OUTSIDE RECORDS SUMMARY | 2018-08-06 13:43 | XMS REPORT | Continuity of Care Document ---
[...] Number For Provider Date Date Visit Outpatient [id number] LEEANN 03/18 [facility] Outpatient [id number] LEEANN 03/17 [facility] Procedures Procedure Code Date Perfomer Comments Source
[2018-08-06 14:14] LABS: Absolute Lymphocytes (CBC) 0.7 K/uL (0.7-4.9); Absolute Monocytes 0.6 K/uL (0.1-1.3); Absolute Neutrophil 3.6 K/uL (1.8-8.0); Basophils % 0.5 % (0-1.3); Eosinophils % 8.5 % (0-4.4); Hematocrit 38.9 % (39.6-49.0); Lymphocytes % 13.5 % (15.3-44.8); MPV 9.1 fL (7.6-11.3); Monocytes % 10.4 % (3.3-12.3); RBC Red Blood Cell Count 3.97 M/uL (4.33-5.43)
[2018-08-06 14:20] LABS: Protime INR 1.28
--- NOTE | 2018-08-06 14:24 | RAD REPORT ---
EXAM DESCRIPTION: RAD - Chest Single View - 08/06/2018 2:18 pm CLINICAL HISTORY: Altered mental status, possible pneumonia COMPARISON: January 2018 TECHNIQUE: AP portable chest image was obtained 1405 hours . FINDINGS: Lung volumes are low. Right costophrenic angle blunting is similar to the comparison. No p ulmonary edema pattern seen. Postsurgical changes are noted at the right hilum. No focal pneumonia se en. Posterior lung base assessment is limited. Trachea is midline. Heart and vasculature are normal. No pneumothorax or large pleural effusion. No acute bony abnormality seen. No acute aortic findings s uspected. IMPRESSION: Limited shallow inspiration film without convincing evidence for pneumonia. Lung marking s are accentuated by shallow inspiration. No pulmonary edema.
[2018-08-06 14:34] LABS: ALT/SGPT 17 U/L (12-78); AST/SGOT 28 U/L (15-37); Albumin 3.2 g/dL (3.4-5.0); Alkaline Phosphatase 77 U/L (45-117); BUN Blood Urea Nitrogen 27 mg/dL (7-18); Bicarbonate 33 mmol/L (21-32); Bilirubin Direct 0.1 mg/dL (0-0.2); Bilirubin Total 0.2 mg/dL (0.2-1.0); CKMB Creatine Kinase MB 2.9 ng/mL (0.3-3.6); Creatine Phosphokinase 579 U/L (39-308); Glucose Level 109 mg/dL (74-106); Lipase 47 U/L (73-393); Potassium 3.5 mmol/L (3.5-5.1); Protein, Total 7.1 g/dL (6.4-8.2); Sodium Level 143 mmol/L (136-145); Troponin (Emerg Dept Use Only) < 0.02 ng/mL (0.0-0.045)
[2018-08-06 14:48] LABS: Phenytoin (Dilantin) Level 13.7 ug/mL (10.0-20.0)
[2018-08-06 15:14] LABS: Urine Amorphous Sediment 2+ /HPF (NONE SEEN); Urine Bacteria <20 /HPF (NONE SEEN); Urine Culture Reflex Order NOT NEEDED; Urine Mucus 3+ /HPF (NONE SEEN); Urine RBC <5 /HPF (NONE SEEN)
[2018-08-06 15:30] LABS: Urine Glucose NEGATIVE (NEG); Urine Specific Gravity >1.030 (1.005-1.030)
[2018-08-06 15:31] LABS: Urine Blood NEGATIVE (NEG); Urine Protein 1+ (NEG); Urine pH 5.5 (5.0-7.0)
--- NOTE | 2018-08-06 16:42 | ER ---
Nurse's Notes [facility] Name: Robbie Dela Cruz Age: 68 yrs Sex: Male : 1950 Arrival Date: 08/06/2018 Time: 13:42 Bed 2 Private MD: Diagnosis: Phenobarbital Toxicity Presentation: 08/06 13:42 Presenting complaint: EMS states: pt is from [facility], staff called tw2 saying he wasn't acting right this morning at breakfast, normally he has slurred speech with left sided weakness from a previous CVA but this morning he seemed weaker and "not right", last known normal was last night. Transition of care: patient was received from another setting of care (long-term care facility), [facility]. Onset of symptoms was August 06, 2018. Risk Assessment: Do you want to hurt yourself or someone else? Patient reports no desire to harm self or others. Care prior to arrival: None. 13:42 Method Of Arrival: EMS: [facility] tw2 13:42 Acuity: SANTIAGO 2 tw2 13:44 Initial Sepsis Screen: Does the patient meet any 2 criteria? No. Patient's initial tw2 sepsis screen is negative. Does the patient have a suspected source of infection? No. Patient's initial sepsis screen is negative. Historical: - Allergies: 13:47 No Known Allergies; tw2 - Home Meds: 13:47 amlodipine-benazepril 5-20 mg Oral cap 1 cap once daily [Active]; benztropine 0.5 mg tw2 Oral tab 1 tab 2 times per day [Active]; clonazepam 1 mg Oral tab 1 tab nightly [Active]; excitalopram 20mg daily [Active]; Latuda 120 mg Oral tab 1 tab once daily [Active]; metoprolol tartrate 25 mg Oral tab 1 tab 2 times per day [Active]; lorapine 50mg 2 tab nightly [Active]; phenobarbital 100 mg Oral tab 1 tab every 8 hours [Active]; Phenytoin 100mg Oral 1 tabs 3 times per day [Active]; - PMHx: 13:47 colon cancer; CVA; Depression; Hypertension; Schizophrenia; Seizures; tw2 - PSHx: 13:47 None; tw2 - Immunization history:: Adult Immunizations. - Social history:: Smoking status: . - Ebola Screening: : Patient denies exposure to infectious person Patient denies travel to an Ebola-affected area in the 21 days before illness onset. Screenin:50 Abuse screen: Denies threats or abuse. Nutritional screening: No deficits noted. tw2 Tuberculosis screening: No symptoms or risk factors identified. Fall Risk None identified. Assessment: 13:47 General: Appears unkempt, Behavior is appropriate for age. Pain: Denies pain. Neuro: tw2 Level of Consciousness is awake, alert, obeys commands, Oriented to person, place. Cardiovascular: Heart tones S1 S2 Patient's skin is warm and dry. Respiratory: Airway is patent Respiratory effort is even, unlabored, Respiratory pattern is regular, symmetrical, Breath sounds are clear bilaterally. GI: No signs and/or symptoms were reported involving the gastrointestinal system. Abdomen is round non-distended, Bowel sounds present X 4 quads. : No signs and/or symptoms were reported regarding the genitourinary system. EENT: No signs and/or symptoms were reported regarding the EENT system. Derm: No signs and/or symptoms reported regarding the dermatologic system. Skin is intact, Skin is dry. Musculoskeletal: Range of motion: limited in left elbow and left wrist. 13:49 Neuro: Speech is slurred, but staff at [facility] says this is his normal. Facial droop tw2 on left, per staff at [facility] state this is pts normal. 14:14 Reassessment: xray is at bedside at this time. tw2 14:35 Reassessment: Patient appears in no apparent distress at this time. No changes from tw2 previously documented assessment. Patient and/or family updated on plan of care and expected duration. Pain level reassessed. 15:30 Reassessment: Patient appears in no apparent distress at this time. No changes from tw2 previously documented assessment. Patient and/or family updated on plan of care and expected duration. Pain level reassessed. 16:27 Reassessment: Patient appears in no apparent distress at this time. No changes from tw2 previously documented assessment. Patient and/or family updated on plan of care and expected duration. Pain level reassessed. 17:16 Reassessment: Patient appears in no apparent distress at this time. No changes from tw2 previously documented assessment. Patient and/or family updated on plan of care and expected duration. Pain level reassessed. Vital Signs: 13:43 BP 115 / 83; Pulse 68; Resp 16; Temp 97.7(O); Pulse Ox 99% on R/A; Weight 104.33 kg tw2 (R); Pain 0/10; 14:34 BP 118 / 82; Pulse 70; Resp 16; Pulse Ox 99% on R/A; tw2 15:30 BP 94 / 61; Pulse 65; Resp 13; Pulse Ox 97% on R/A; tw2 16:27 BP 93 / 66; Pulse 64; Resp 14; Pulse Ox 97% on R/A; tw2 17:16 BP 109 / 77; Pulse 71; Resp 16; Pulse Ox 99% on R/A; tw2 ED Course: 13:42 Patient arrived in ED. tw2 13:43 Triage completed. tw2 13:44 Arm band placed on. tw2 13:46 Kyle Kaiser MD is Attending Physician. kdr 13:47 Bed in low position. Call light in reach. Side rails up X2. traffic monitor specialist on. Pulse tw2 ox on. NIBP on. 13:47 Inserted saline lock: 20 gauge in right antecubital area, using aseptic technique. tw2 ,using aseptic technique. by WHIT Holm Blood collected. 13:59 Jigna Steele RN is Primary Nurse. tw2 14:09 Dilantin Sent. tw2 14:09 Phenobarbital Sent. tw2 14:18 X-ray completed. Portable x-ray completed in exam room. Patient tolerated procedure jb2 well. 14:18 Chest Single View XRAY In Process Unspecified. EDMS 14:20 Lazaro cath inserted, using sterile technique, 18 Fr., by mo, balloon inflated, to tw2 gravity drainage, urine specimen collected. Ignacio Beavers served as licensed psychologist director during procedure, pt had dried stool, we cleaned pt and applied new brief at this time. 14:24 EKG done, by heating and cooling technician. reviewed by Kyle Kaiser MD. sm3 15:01 Notified ED physician of a critical lab result(s). phenobarb 76.5. hb 16:35 Ligia Tello MD is Hospitalizing Provider. kdr 17:20 No provider procedures requiring assistance completed. Patient admitted, IV remains in tw2 place. 17:21 Awaiting: attempted to call report at this time. tw2 Administered Medications: No medications were administered Point of Care Testing: Blood Glucose: 13:43 Blood Glucose: 117 mg/dL; tw2 Ranges: Intake: 16:40 dark sunny urine noted tw2 Output: 16:40 Urine: 380ml (Lazaro); Total: 380ml. tw2 16:40 dark sunny urine noted tw2 Outcome: 16:41 Decision to Hospitalize by Provider. kdr 17:36 Admitted to Med/surg accompanied by tech, via stretcher, room 228, with chart, Report tw2 called to WHIT Ron 17:36 Condition: stable 17:36 Instructed on the need for admit. 17:43 Patient left the ED. tw2 Signatures: Dispatcher [employer] EDMS Kyle Kaiser MD MD kdr Buechter, Jesse jb2 Alta Paredes RN RN Jigna Steele RN RN tw2 Ashley Chavez 3
--- NOTE | 2018-08-06 16:43 | EDPHYS ---
Physician Documentation [facility] Name: Robbie Dela Cruz Age: 68 yrs Sex: Male : 1950 Arrival Date: 08/06/2018 Time: 13:42 Bed 2 Private MD: ED Physician Kyle Kaiser HPI: 08/06 14:01 This 68 yrs old Male presents to ER via EMS with complaints of General kdr Weakness. 14:01 The patient was sent from the [place] because he was leaning more than usual at breakfast kdr and not eating as much. Onset: The symptoms/episode began/occurred this morning. Severity of symptoms: At their worst the symptoms were mild in the emergency department the symptoms The patient is reported to be at his baseline on presentation to the ED. Unable to elicit any history or discernable problem at time of presentation. It is unknown whether or not the patient has had similar symptoms in the past. It is unknown whether or not the patient has recently seen a physician. Historical: - Allergies: 13:47 No Known Allergies; tw2 - Home Meds: 13:47 amlodipine-benazepril 5-20 mg Oral cap 1 cap once daily [Active]; benztropine 0.5 mg tw2 Oral tab 1 tab 2 times per day [Active]; clonazepam 1 mg Oral tab 1 tab nightly [Active]; excitalopram 20mg daily [Active]; Latuda 120 mg Oral tab 1 tab once daily [Active]; metoprolol tartrate 25 mg Oral tab 1 tab 2 times per day [Active]; lorapine 50mg 2 tab nightly [Active]; phenobarbital 100 mg Oral tab 1 tab every 8 hours [Active]; Phenytoin 100mg Oral 1 tabs 3 times per day [Active]; - PMHx: 13:47 colon cancer; CVA; Depression; Hypertension; Schizophrenia; Seizures; tw2 - PSHx: 13:47 None; tw2 - Immunization history:: Adult Immunizations. - Social history:: Smoking status: . - Ebola Screening: : Patient denies exposure to infectious person Patient denies travel to an Ebola-affected area in the 21 days before illness onset. ROS: 14:01 Unable to obtain ROS due to altered mental status, patient is in a persistent kdr vegetative state, patient's speech is incomprehensible. 16:42 Constitutional: Negative for fever, chills, and weight loss, Eyes: Negative for injury, kdr pain, redness, and discharge. Exam: 14:01 Constitutional: This is a well developed, well nourished patient who is awake, alert, kdr and in no acute distress. Head/Face: Normocephalic, atraumatic loeft facial droop (chronic) Eyes: Pupils equal round and reactive to light, extra-ocular motions intact. Lids and lashes normal. Conjunctiva and sclera are non-icteric and not injected. Cornea within normal limits. Periorbital areas with no swelling, redness, or edema. Neck: Trachea midline, no thyromegaly or masses palpated, and no cervical lymphadenopathy. Supple, full range of motion without nuchal rigidity, or vertebral point tenderness. No Meningismus. Chest/axilla: Normal chest wall appearance and motion. Nontender with no deformity. No lesions are appreciated. Cardiovascular: Regular rate and rhythm with a normal S1 and S2. No gallops, murmurs, or rubs. Normal PMI, no JVD. No pulse deficits. Abdomen/GI: Soft, non-tender, with normal bowel sounds. No distension or tympany. No guarding or rebound. No evidence of tenderness throughout. Back: No spinal tenderness. No costovertebral tenderness. Full range of motion. Skin: Warm, dry with normal turgor. Normal color with no rashes, no lesions, and no evidence of cellulitis. MS/ Extremity: Pulses equal, no cyanosis. Neurovascular intact. Full, normal range of motion. Neuro: Awake and alert, GCS 14. Cranial nerves grossly intact. Vital Signs: 13:43 BP 115 / 83; Pulse 68; Resp 16; Temp 97.7(O); Pulse Ox 99% on R/A; Weight 104.33 kg tw2 (R); Pain 0/10; 14:34 BP 118 / 82; Pulse 70; Resp 16; Pulse Ox 99% on R/A; tw2 15:30 BP 94 / 61; Pulse 65; Resp 13; Pulse Ox 97% on R/A; tw2 16:27 BP 93 / 66; Pulse 64; Resp 14; Pulse Ox 97% on R/A; tw2 17:16 BP 109 / 77; Pulse 71; Resp 16; Pulse Ox 99% on R/A; tw2 MDM: 16:41 Patient medically screened. kdr 16:51 Data reviewed: vital signs, nurses notes. Counseling: I had a detailed discussion with kdr the patient and/or guardian regarding: the historical points, exam findings, and any diagnostic results supporting the discharge/admit diagnosis, lab results, radiology results, the need for outpatient follow up. 08/06 13:46 Order name: Glucose, Ancillary Testing; Complete Time: 15:18 EDMS 08/06 13:56 Order name: Basic Metabolic Panel; Complete Time: 15:18 [facility] 08/06 13:56 Order name: Blood Culture Adult (2) kdr 08/06 13:56 Order name: CBC with Diff; Complete Time: 15:18 kdr 08/06 13:56 Order name: Ckmb; Complete Time: 15:18 kdr 08/06 13:56 Order name: CPK; Complete Time: 15:18 kdr 08/06 13:56 Order name: Lactate; Complete Time: 15:18 kdr 08/06 13:56 Order name: LFT's; Complete Time: 15:18 [facility] 08/06 13:56 Order name: Lipase; Complete Time: 15:18 kdr 08/06 13:56 Order name: Procalcitonin; Complete Time: 15:18 kdr 08/06 13:56 Order name: Protime (+inr); Complete Time: 15:18 kdr 08/06 13:56 Order name: Ptt, Activated; Complete Time: 15:18 kdr 08/06 13:56 Order name: Troponin (emerg Dept Use Only); Complete Time: 15:18 [facility] 08/06 13:56 Order name: Urine Microscopic Only; Complete Time: 15:18 [facility] 08/06 13:56 Order name: Chest Single View XRAY; Complete Time: 15:18 kdr 08/06 13:56 Order name: Accucheck; Complete Time: 13:59 kdr 08/06 13:56 Order name: Cardiac monitoring; Complete Time: 13:59 kdr 08/06 13:56 Order name: EKG - Nurse/Tech; Complete Time: 14:14 kdr 08/06 13:56 Order name: IV Saline Lock - Large Bore; Complete Time: 13:59 [facility] 08/06 13:56 Order name: Labs collected and sent; Complete Time: 14:00 kdr 08/06 13:56 Order name: O2 Per Protocol; Complete Time: 14:00 kdr 08/06 13:56 Order name: O2 Sat Monitoring; Complete Time: 14:00 kdr 08/06 14:08 Order name: Phenobarbital; Complete Time: 15:18 hb 08/06 14:08 Order name: Dilantin; Complete Time: 15:18 hb 08/06 14:37 Order name: Urine Dipstick--Ancillary (enter results); Complete Time: 16:30 hb 08/06 16:56 Order name: Regular EDMS 08/06 16:56 Order name: Basic Metabolic Panel EDMS 08/06 16:56 Order name: Basic Metabolic Panel EDMS 08/06 16:56 Order name: CBC with Automated Diff EDMS 08/06 16:56 Order name: CBC with Automated Diff EDMS 08/06 13:56 Order name: Urine Dipstick-Ancillary (obtain specimen); Complete Time: 15:16 kdr 08/06 14:08 Order name: Lazaro; Complete Time: 14:35 tw2 Administered Medications: No medications were administered Point of Care Testing: Blood Glucose: 13:43 Blood Glucose: 117 mg/dL; tw2 Ranges: Critical Glucose Levels:Adult <50 mg/dl or >400 mg/dl <40 mg/dl or >180 mg/dl Disposition: 08/06/18 16:41 Hospitalization ordered by Ligia Tello for Inpatient Admission. Preliminary diagnosis is Phenobarbital Toxicity. - Bed requested for Telemetry/MedSurg (Inpatient). - Status is Inpatient Admission. tw2 - Condition is Fair. - Problem is new. - Symptoms are unchanged. UTI on Admission? No Signatures: Dispatcher [facility] Blanka Hirsch RN RN Kyle Kaiser MD MD [facility] Jigna Steele RN RN tw2 Corrections: (The following items were deleted from the chart) 17:16 16:41 Hospitalization Ordered by A Elisha DELUNA for Inpatient Admission. Preliminary gabino diagnosis is Phenobarbital Toxicity. Bed requested for Telemetry/MedSurg (Inpatient). Status is Inpatient Admission. Condition is Fair. Problem is new. Symptoms are unchanged. UTI on Admission? No. kdr 17:43 17:16 08/06/2018 16:41 Hospitalization Ordered by A Elisha DELUNA for Inpatient Admission. tw2 Preliminary diagnosis is Phenobarbital Toxicity. Bed requested for Telemetry/MedSurg (Inpatient). Status is Inpatient Admission. Condition is Fair. Problem is new. Symptoms are unchanged. UTI on Admission? No. dw
[2018-08-06] MEDS ORDERED: ONDANSETRON 4 MG/2 ML VIAL IV PRN (16:49)
[2018-08-06] MEDS ORDERED: PNEUMOCOCCAL VACCINE 0.5 ML IMVAC ONE (20:00)
[2018-08-06] MEDS: D5 0.9 NS 1,000 ML IV SCH (21:18)
[2018-08-07 05:13] LABS: Absolute Lymphocytes (CBC) 0.9 K/uL (0.7-4.9); Absolute Monocytes 0.7 K/uL (0.1-1.3); Absolute Neutrophil 4.8 K/uL (1.8-8.0); Basophils % 0.6 % (0-1.3); Eosinophils % 7.7 % (0-4.4); Hematocrit 36.9 % (39.6-49.0); Lymphocytes % 12.6 % (15.3-44.8); MPV 8.8 fL (7.6-11.3); Monocytes % 10.5 % (3.3-12.3); RBC Red Blood Cell Count 3.84 M/uL (4.33-5.43)
[2018-08-07 05:37] LABS: BUN Blood Urea Nitrogen 23 mg/dL (7-18); Bicarbonate 28 mmol/L (21-32); Glucose Level 94 mg/dL (74-106); Potassium 3.3 mmol/L (3.5-5.1); Sodium Level 146 mmol/L (136-145)
--- NOTE | 2018-08-07 07:49 | EKG ---
Test Date: 2018-08-06 Test Time: 14:07:09 Japanese Interpreter: MARIN MEASUREMENT RESULTS: Intervals: Rate: 71 NE: 200 QRSD: 90 QT: 408 QTc: 443 [place]: P: 54 NE: 200 QRS: 71 T: 50 INTERPRETIVE STATEMENTS: Normal sinus rhythm Normal ECG Compared to ECG 06/19/2018 20:32:32 No significant changes Electronically Signed On 08-07-18 07:46:19 TECHNICAL MARKETING ENGINEER by Ventura Sandy
[2018-08-07] MEDS ORDERED: POTASSIUM CL SA 10 MEQ TAB PO ONE (16:52)
[2018-08-07] MEDS: D5 0.9 NS 1,000 ML IV SCH ×2 (18:53→23:40)
[2018-08-07] MEDS: TAMSULOSIN 0.4 MG SR CAP PO SCH (20:56)
[2018-08-07] MEDS: METOPROLOL TAR 25 MG TAB PO SCH (20:56)
[2018-08-07] MEDS: PHENYTOIN ER 100 MG CAP PO SCH (20:57)
[2018-08-07] MEDS: OLANZapine 2.5 MG TAB PO SCH (20:58)
--- NOTE | 2018-08-08 00:58 | PN ---
Date of Progress Note: 08/07/2018 Subjective: The patient was seen this morning for followup. His family members were present with gloria clarke at bedside, who are the patient's nephew as well as his . The patient was a lot more better to day. He was awake, alert, recognizing me, answering all the questions very appropriately. He is sti ll not completely back to his normal self but significantly better today than yesterday. He was star sidra on diet this morning and is tolerating that very well. Objective: Vital Signs: Reviewed. HEENT: Unremarkable. Lungs: Clear to auscultation. Heart: Sounds normal. Abdomen: Soft. Bowel sounds normal. No guarding, rigidity, tenderness, or distention. Extremities: No leg edema. Laboratory Data: Sodium 146, potassium 3.3, chloride 110, bicarb 28, BUN 23, creatinine 0.69, glucos e 94, phenobarbital level 63.3. Impression: 1.Phenobarbital toxicity. 2.Hypokalemia. 3.Anemia. 4.Seizure disorder. 5.Hypertension. 6.Mixed hyperlipidemia. 7.Gastroesophageal reflux disease. 8.Impaired fasting glucose. 9.Diverticulosis. 10.Colon cancer. Plan: We will go ahead and continue home medications per order. We will not give any phenobarbital at this point. Upon review of office record, his phenobarbital dose listed in the office record was 30 mg 3 times a day. Phenobarbital was not prescribed by me but it appears that at some point his do se was increased to the current dose and very likely that probably happened in [place] and that has r esulted in phenobarbital toxicity. So, obviously we will not be giving him phenobarbital at this poi nt. At appropriate time, we will restart phenobarbital at a lower dose and upon discharge [facility] to alf this level should be closely monitored by alf physician. The patien t was advised to eat all his 3 meals regularly while he is here as well as at the alf as he has not been eating as well and he was advised to do some physical therapy to regain his strength. P janayr to his admission to psychiatric hospital, the patient was living at independent facility and he was ambulating on his own and I expect him to get back to that previous level of functioning and I do not see any reason why he should not be able to achieve that goal. All these details were discussed with him today. I will see him tomorrow for followup. JEANNIE/MODL Voice ID: [id number] Report ID: [id number]
--- NOTE | 2018-08-08 04:31 | HP ---
Date of Admission: 08/06/2018 Chief Complaint: Altered mental status. History Of Present Illness: A 68-year-old male patient who was under my care for many years until so metime in June of this year. He was hearing some voices and he was brought into our emergency ro om. At that time, he was living at independent facility across the street from hospital [facility]. From our hospital [facility] [place], where he wa s kept for about 2 weeks and as family informs me today about all these details, they told me that at end of 2 weeks, family was contacted by this facility and they were told that he is ready for discha rge and for them to come and pick him up. When they went to that facility, they found him sitting in wheelchair and he was discharged with some discharge medications. When family brought him home, the y realized that he was extremely weak, that they had hard time getting him out of car to the house. Family was not able to take care of him as they work and rather the patient was not able to take care of himself because of his condition, so [facility] and [facility] and all the paperwork that they got from [place], they gave it to the [facility], that included his medication list, and as I understand from family that this medication list were continu ed at the [facility]. He has not done well in [facility]. He has been very sleepy and weak to t he extent that today he was sent to the emergency room because of altered mental status. After he wa s evaluated in the ER, we found out that the patient actually had phenobarbital toxicity and I was co ntacted requesting admission to the hospital for this problem. When I saw him in the evening, he was lying in bed, trying to open his eyes, but did not answer any of my questions. Allergies: NO KNOWN ALLERGIES. Medications: According to [facility] list, he is on: Zyprexa 5 mg at bedtime, Abilify 20 mg daily, phenobarbital 97.2 mg every 8 hours, metoprolol 12.5 mg twice a day, lisinopril 5 mg at bedtime, tee sulosin 0.4 mg p.o. at bedtime, and Dilantin 100 mg p.o. 3 times a day. Review of Systems: MICROBIAL SPECIALIST as mentioned above. All other systems unable to review because the patient is not able to answer any questions. Social History: Negative for smoking or alcohol use. Family History: Significant for hypertension, diabetes, coronary artery disease. Past Surgical History: Right-sided hemicolectomy in September 2014 for colon cancer, hydrocele repair , appendectomy, skin cancer removal, partial lobectomy of the right lung in 1984 and it was not due t o cancer. Cardiac cath done in April 2015 showed normal coronary arteries. Past Medical History: Significant for seizure disorder, gastroesophageal reflux disease, hypertensio n, hyperlipidemia, colon cancer, impaired fasting glucose, diverticulosis, bladder hypertonicity, marianne izophrenia, allergic rhinitis, osteoarthritis at multiple sites. Physical Examination: Vital signs: When he came into emergency room temperature 97.7, pulse 68, respiratory rate 16, blood pressure 115/83, oxygen saturation 99%. Height 5 feet 8 inches, weight 220 pounds. General: The patient lying in bed not in distress, not answering any questions or following any comma nds and not in respiratory distress. HEENT: Head atraumatic, normocephalic. Conjunctivae nonerythematous. Sclerae white. Mouth, no thr ush or edema noted. Ears/Nose, no mass, lesion, discharge noted. Neck: Supple. No JVD, lymph nodes, bruit, thyromegaly noted. Lungs: Bilateral good equal air entry. Clear to auscultation. No rhonchi. No rales. Heart: Normal heart sounds, no murmur or gallop. Abdomen: Soft, bowel sounds normal. No guarding, rigidity, tenderness, mass, hepatosplenomegaly, dis tention, or bruit noted. Extremities: No leg edema. No calf tenderness. Skin: No rash, ulcer, cellulitis. Lymphatics: No lymph node enlargement in neck, supraclavicular, infraclavicular region. Neuro: No focal neurological deficit. Chest: Unremarkable. External Genitalia: Deferred. Rectal: Deferred. MICROBIAL SPECIALIST: The patient has altered mental status. Otherwise a detailed MICROBIAL SPECIALIST exam is not possible. Laboratory Data: Chest x-ray: No acute cardiopulmonary changes. Chest x-ray, it was a shallow insp iration film. Electrocardiogram: Normal sinus rhythm. No acute ST-T changes noted. Labs: White count 5.4, hemoglobin 12.9, platelets 195. Sodium 143, potassium 3.5, chloride 106, bic arb 33, BUN 27, creatinine 0.9, glucose 109. Liver function tests unremarkable. Lipase 47, procalcitonin less than 0.05. Urinalysis negative for nitrite and esterase. WBC less than 5, bacteria less than 20. Dilantin level 13.7, phenobarbital level 76.5. Impression: 1.Phenobarbital toxicity. 2.Altered mental status secondary to above. 3.Seizure disorder. 4.Schizophrenia. 5.Anemia, unspecified. 6.Hypertension. 7.Gastroesophageal reflux disease. 8.Hyperlipidemia. 9.Colon cancer. 10.Impaired fasting glucose. 11.Diverticulosis. 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 13.Osteoarthritis multiple sites. 14.Allergic rhinitis. Plan: Admit the patient to hospital for further evaluation of this problem. The patient is appropri ate for inpatient and is expected to spend 2 midnights in hospital. We will go ahead and give him IV fluid. I will re-evaluate him tomorrow morning. We will repeat blood work tomorrow morning to foll ow up on phenobarbital level, and hopefully by tomorrow, he should wake up enough to get him started on some diet. We will consult Physical Therapy to help ambulate him starting tomorrow. His home medica tions will be continued per order. JEANNIE/MOHAMUD Voice ID: [id number]
[2018-08-08 07:13] LABS: BUN Blood Urea Nitrogen 17 mg/dL (7-18); Bicarbonate 27 mmol/L (21-32); Glucose Level 118 mg/dL (74-106); Potassium 3.3 mmol/L (3.5-5.1); Sodium Level 146 mmol/L (136-145)
[2018-08-08] MEDS: D5 0.9 NS 1,000 ML IV SCH ×3 (09:06→21:16)
[2018-08-08] MEDS: ARIPiprazole 5 MG TAB PO SCH (09:10)
[2018-08-08] MEDS: PHENYTOIN ER 100 MG CAP PO SCH ×3 (09:10→21:16)
[2018-08-08] MEDS: METOPROLOL TAR 25 MG TAB PO SCH ×2 (09:11→21:16)
[2018-08-08] MEDS ORDERED: POTASSIUM CL SA 10 MEQ TAB PO ONE (11:05)
--- NOTE | 2018-08-08 15:13 | PN ---
Date of Progress Note: 08/08/2018 Subjective: The patient was seen this morning for followup. He was sleeping, easily arousable, not in distress. Denied any complaints. Objective: Vital Signs: Reviewed. HEENT: Unremarkable. Lungs: Clear to auscultation. Heart: Sounds normal. Abdomen: Soft. Bowel sounds normal. No guarding, rigidity, tenderness, or distention. Extremities: No leg edema. Laboratory Data: Sodium 146, potassium 3.3, chloride 111, bicarb 27, BUN 17, creatinine 0.80, glucos e 118. Phenobarbital level was 66.6 today, yesterday it was 63.3. Impression: 1.Phenobarbital toxicity. 2.Seizure disorder. 3.Schizophrenia. 4.Hypertension. 5.Hypokalemia. Plan: We will go ahead and replace potassium per order. We will repeat blood work. Continue IV flu id. The patient's home medications will be continued per order. We are not giving him any lisinopri l yet because his blood pressure is normal without taking this medication, at this point, and we will consider to restart it at appropriate time. The patient has not received any phenobarbital since [place]. We will continue to monitor phenobarbital level on a daily basis, and we will repeat b lood work tomorrow. Possible discharge to go back to assisted day after tomorrow. Details were discussed with the patient. He still appears sleepier than normal, but better compared to the day of presentation. JEANNIE/MODL Voice ID: [id number] Report ID: [id number]
[2018-08-08] MEDS: OLANZapine 2.5 MG TAB PO SCH (21:00)
[2018-08-08] MEDS: TAMSULOSIN 0.4 MG SR CAP PO SCH (21:15)
[2018-08-09] MEDS: D5 0.9 NS 1,000 ML IV SCH ×2 (00:27→15:40)
[2018-08-09 07:46] LABS: Absolute Monocytes 0.5 K/uL (0.1-1.3); Absolute Neutrophil 2.2 K/uL (1.8-8.0); Basophils % 0.8 % (0-1.3); Hematocrit 33.5 % (39.6-49.0); Lymphocytes % 22.6 % (15.3-44.8); MPV 8.7 fL (7.6-11.3); Monocytes % 10.7 % (3.3-12.3); RBC Red Blood Cell Count 3.48 M/uL (4.33-5.43)
[2018-08-09 08:19] LABS: ALT/SGPT 12 U/L (12-78); AST/SGOT 15 U/L (15-37); Albumin 2.5 g/dL (3.4-5.0); Alkaline Phosphatase 61 U/L (45-117); BUN Blood Urea Nitrogen 11 mg/dL (7-18); Bicarbonate 26 mmol/L (21-32); Bilirubin Total 0.2 mg/dL (0.2-1.0); Glucose Level 101 mg/dL (74-106); Magnesium 1.8 mg/dL (1.8-2.4); Potassium 3.5 mmol/L (3.5-5.1); Protein, Total 5.7 g/dL (6.4-8.2); Sodium Level 146 mmol/L (136-145)
[2018-08-09] MEDS: METOPROLOL TAR 25 MG TAB PO SCH ×2 (09:17→20:37)
[2018-08-09] MEDS: ARIPiprazole 5 MG TAB PO SCH (09:18)
[2018-08-09] MEDS: PHENYTOIN ER 100 MG CAP PO SCH ×3 (09:18→20:36)
[2018-08-09] MEDS: TAMSULOSIN 0.4 MG SR CAP PO SCH (20:37)
[2018-08-09] MEDS: OLANZapine 2.5 MG TAB PO SCH (20:38)
--- NOTE | 2018-08-09 20:58 | PN ---
Date of Progress Note: 08/09/2018 Subjective: The patient was seen this morning for followup. No new complaints or problems reported by the patient who was lying in bed, not in distress. Early this morning, nurse contacted to inform me that the patient had not voided all night and had about 410 cc of urine on the bladder scan. An o rder was given for nurse to put the Lazaro catheter back in, and then she contacted me again to inform that she had tried to put the catheter in twice, but there was no urine output. At that time, she w as advised that very likely the catheter was not in the place and she should contact warehouse man for catheter placement. When I came to see him, he had about 400 to 500 cc of urine present in the Lazaro catheter bag. When I asked the nurse today to see if the nighttime nurse had tried to get the patient out of bed to use the bedside commode for urination before contacting me, and she was not inf ormed that any such measures were done before contacting me, so I have advised the daytime nurse toda y to go ahead and remove the catheter and to make sure to get the patient up for urination. Physical Therapy did not work with him yesterday or today as the patient reports, but the patient reports steve t they worked with him the day before yesterday. Objective: Vital Signs: Reviewed. HEENT: Unremarkable Lungs: Clear to auscultation. Heart: Heart sounds normal. Abdomen: Soft. Bowel sounds normal. No guarding, rigidity, tenderness, or distention. Extremities: No leg edema. Laboratory Data: White count 4.2, hemoglobin 11.5, platelets 201. Sodium 146, potassium 3.5, chlori de 111, bicarb 26, BUN 11, creatinine 0.72, glucose 101. Liver function tests unremarkable. Phenoba rbital 58.3, yesterday it was 66.6. Impression: 1.Phenobarbital toxicity. 2.Benign prostatic hypertrophy with urinary retention. 3.Seizure disorder. 4.Schizophrenia. Plan: We will go ahead and remove the Lazaro catheter. Nursing staff to get the patient up for urina tion. Continue Flomax. Continue to hold phenobarbital. We will follow up on blood work tomorrow. Possible discharge to go back to [facility] tomorrow. Continue other current medical management. JEANNIE/MODL Voice ID: [id number] Report ID: [id number]
[2018-08-10] MEDS: D5 0.9 NS 1,000 ML IV SCH ×2 (03:49→17:18)
[2018-08-10] MEDS: ARIPiprazole 5 MG TAB PO SCH (09:00)
[2018-08-10] MEDS: PHENYTOIN ER 100 MG CAP PO SCH ×3 (10:01→21:00)
[2018-08-10] MEDS: METOPROLOL TAR 25 MG TAB PO SCH ×2 (10:04→21:00)
--- NOTE | 2018-08-10 10:32 | RAD REPORT ---
EXAM DESCRIPTION: CT - Head Brain Wo Cont - 08/10/2018 9:11 am CLINICAL HISTORY: Alteration of awareness/confusion COMPARISON: 2007 TECHNIQUE: Computed axial tomography of the head was obtained. IV contrast was not requested. All CT scans are performed using dose optimization technique as appropriate and may include automated exposure control or mA/KV adjustment according to patient size. FINDINGS: A 9 centimeter low-density area within the right cerebrum is unchanged having the appearan ce of cystic encephalomalacia. An intracranial bleed is not seen . The ventricles are normal in caliber. No extra-axial fluid collection is noted. Fluid within the sinuses/ mastoids is not seen. Chronic ethmoid sinusitis IMPRESSION: No acute intracranial abnormality is seen. If patient's symptoms persist MRI of the bra in would be recommended.
[2018-08-10] MEDS: OLANZapine 2.5 MG TAB PO SCH (21:00)
[2018-08-10] MEDS: TAMSULOSIN 0.4 MG SR CAP PO SCH (21:00)
[2018-08-10] MEDS: ACETAMINOPHEN 500 MG TAB PO PRN (23:30)
--- NOTE | 2018-08-11 01:02 | PN ---
Date of Progress Note: 08/10/2018 Subjective: The patient was seen this morning for followup. Lying in bed, not in any distress. He appears little sleepier than normal but overall improving on a day-to-day basis. No new complaints, problems reported. No trouble emptying bladder. Objective: Vital Signs: Reviewed. HEENT: Unremarkable. Lungs: Clear to auscultation. Heart: Sounds normal. Abdomen: Soft. Bowel sounds normal. No guarding, rigidity, tenderness, or distention. Extremities : No leg edema. Laboratory Data: His phenobarbital level is 53.1. Impression: 1.Phenobarbital toxicity. 2.Altered mental status. 3.Hypertension. 4.Seizure disorder. 5.Schizophrenia. Plan: We did obtain CAT scan of the head today without contrast. It was negative for any acute schaeffer ges. Continue current medical management. Physical Therapy to continue to help ambulate the patient . We will repeat blood work tomorrow. Possible discharge to go to longterm tomorrow depending o n his condition. I will see him tomorrow morning for followup. JEANNIE/MODL Voice ID: [id number] Report ID: [id number]
[2018-08-11 07:37] LABS: Absolute Lymphocytes (CBC) 0.9 K/uL (0.7-4.9); Absolute Monocytes 0.6 K/uL (0.1-1.3); Absolute Neutrophil 4.9 K/uL (1.8-8.0); Basophils % 0.7 % (0-1.3); Eosinophils % 6.1 % (0-4.4); Hematocrit 35.8 % (39.6-49.0); Lymphocytes % 12.8 % (15.3-44.8); MPV 8.2 fL (7.6-11.3); Monocytes % 8.5 % (3.3-12.3); RBC Red Blood Cell Count 3.69 M/uL (4.33-5.43)
[2018-08-11] MEDS: D5 0.9 NS 1,000 ML IV SCH ×4 (07:40→23:45)
[2018-08-11 07:54] LABS: Albumin 2.8 g/dL (3.4-5.0); Bilirubin Total 0.3 mg/dL (0.2-1.0); Magnesium 1.8 mg/dL (1.8-2.4); Potassium 3.4 mmol/L (3.5-5.1); Protein, Total 6.4 g/dL (6.4-8.2)
--- NOTE | 2018-08-11 08:45 | RAD REPORT ---
EXAM DESCRIPTION: Krista Single View08/11/2018 7:52 am CLINICAL HISTORY: Fever COMPARISON: August 06 FINDINGS: Chronic elevation right hemidiaphragm The lungs appear clear of acute infiltrate. The heart is normal size IMPRESSION: No acute abnormalities displayed
[2018-08-11] MEDS: CEFTRIAXONE/SWI 1gm 1 GM/10 ML SYR IV SCH ×2 (09:16→21:29)
[2018-08-11] MEDS: METOPROLOL TAR 25 MG TAB PO SCH ×2 (09:17→21:31)
[2018-08-11] MEDS: PHENYTOIN ER 100 MG CAP PO SCH ×3 (09:18→21:31)
[2018-08-11] MEDS: ARIPiprazole 5 MG TAB PO SCH (15:58)
[2018-08-11] MEDS: OLANZapine 2.5 MG TAB PO SCH (21:30)
[2018-08-11] MEDS: ACETAMINOPHEN 500 MG TAB PO PRN (21:31)
[2018-08-11] MEDS: TAMSULOSIN 0.4 MG SR CAP PO SCH (21:31)
[2018-08-11] MEDS ORDERED: ACETAMINOPHEN 500 MG TAB PO ONE (23:10)
[2018-08-11] MEDS ORDERED: IBUPROFEN 400 MG TAB PO ONE (23:11)
[2018-08-12] MEDS ORDERED: VANCOMYCIN 1 GM in NA CHLORIDE 0.9% 500 ML IVPB SCH ×2
[2018-08-12] MEDS ORDERED: VANCOMYCIN 2.5 GM in NA CHLORIDE 0.9% 500 ML IVPB ONE (01:00)
[2018-08-12] MEDS ORDERED: PIPER/TAZO/NS 3.375gm 3.375 GM/100 ML BAG ONE ×2 (01:17→05:23)
[2018-08-12] MEDS: PIPER/TAZO/NS 3.375gm 3.375 GM/100 ML BAG IVPB SCH ×4 (01:18→18:30)
--- NOTE | 2018-08-12 02:24 | PN ---
Date of Progress Note: 08/11/2018 The patient was seen this morning for followup, lying in bed not in distress. No new complaints or problems reported by him. The patient's mental status has improved. He is back to his normal self, awake, alert, oriented and answers questions appropriately and reported that yesterday he did ambulate with vital signs reviewed. The patient started having fever last night. He denies any cough, congestion. No urinary complaints. No trouble voiding. Physical Examination: Vital Signs: Reviewed. HEENT: Examination unremarkable. Lungs: Clear to auscultation. Heart: Sounds normal. Abdomen soft. Bowel sounds normal. No guarding, rigidity, tenderness, distention. Extremities: No leg edema. Laboratory Data: His phenobarbital level from this morning is 50.5. CBC from today shows white count 6.8, hemoglobin 12.1, platelets 198. Chemistry shows potassium 3.4, otherwise rest of electrolytes and liver function tests unremarkable. Procalcitonin less than 0.05. Urinalysis was negative. Chest x- ray: No signs of pneumonia from today. Impression: 1. Phenobarbital toxicity. 2. Altered mental status secondary to above, improved. 3. Fever. 4. Hypertension. 5. Seizure disorder. 6. Schizophrenia. 7. Hypokalemia. Plan: At this point, this morning when I saw him, we did not have any definite idea about source of fever and considering he had a Lazaro catheter placement over the weekend, I was concerned about possibility of urinary tract infection, so urinalysis and urine culture was done and empiric antibiotic, ceftriaxone was started. Considering his urinalysis and chest x-ray is normal and all throughout the day his temperature came down and we will monitor his temperature and other vital signs overnight. If he remains afebrile, our plan is to discharge him to go to detention tomorrow. As per request, I did call the patient's sister and details were discussed with her. JEANNIE/MODL Voice ID: [id number] Report ID: [id number]
[2018-08-12] MEDS ORDERED: VANCOMYCIN 1 GM/VIAL ONE (02:42)
[2018-08-12] MEDS ORDERED: VANCOMYCIN 500 MG/VIAL ONE (02:43)
[2018-08-12] MEDS ORDERED: NA CHLORIDE 0.9% 250 ML ONE (02:44)
[2018-08-12] MEDS ORDERED: NA CHLORIDE 0.9% 250 ML IV ONE ×4 (08:07→09:36)
[2018-08-12 08:34] LABS: Absolute Lymphocytes (CBC) 0.3 K/uL (0.7-4.9); Absolute Monocytes 0.6 K/uL (0.1-1.3); Absolute Neutrophil 12.7 K/uL (1.8-8.0); Basophils % 0.3 % (0-1.3); Lymphocytes % 2.4 % (15.3-44.8); MPV 8.2 fL (7.6-11.3); Monocytes % 4.6 % (3.3-12.3); RBC Red Blood Cell Count 3.45 M/uL (4.33-5.43)
[2018-08-12] MEDS: ARIPiprazole 5 MG TAB PO SCH ×2 (09:00→09:17)
[2018-08-12] MEDS: METOPROLOL TAR 25 MG TAB PO SCH ×2 (09:00→21:00)
[2018-08-12] MEDS: PHENYTOIN ER 100 MG CAP PO SCH ×4 (09:17→21:20)
--- NOTE | 2018-08-12 09:18 | RAD REPORT ---
EXAM DESCRIPTION: RAD - Chest Single View - 08/12/2018 9:09 am CLINICAL HISTORY: Fever, limited range of motion COMPARISON: August 11August 06 TECHNIQUE: AP portable chest image was obtained 0903 hours . FINDINGS: Lung volumes are low. There is motion degradation at each lung base. Lung markings at each base are fractionally increased suspected to be artifact of motion and shallow inspiration. Prior ri ght perihilar surgical changes noted. Failure and volume overload are not suspected. Heart and vascul ature are normal. No pneumothorax seen. Small pleural effusions can be masked. No acute bony abnormal ity seen. No acute aortic findings suspected. IMPRESSION: Limited portable study shows no significant cardiopulmonary finding. Patchy bilateral lung base opacification favored to be artifact of motion and shallow inspiration.
[2018-08-12 10:01] LABS: Blood Morphology Comment NOT SEEN (NOT SEEN); Platelet Estimate DECR
[2018-08-12 10:06] LABS: Urine Appearance CLEAR; Urine Bilirubin NEGATIVE (NEG); Urine Blood 3+ (NEG); Urine Color YELLOW; Urine Glucose NEGATIVE (NEG); Urine Protein NEGATIVE (NEG); Urine Specific Gravity 1.015 (1.005-1.030); Urine Urobilinogen 0.2 mg/dL (0.2-1.0)
[2018-08-12 10:13] LABS: Urine Bacteria <20 /HPF (NONE SEEN); Urine RBC >50 /HPF (NONE SEEN)
[2018-08-12 10:14] LABS: Urine Culture Reflex Order REFLEXED
[2018-08-12 10:14] LABS: Albumin 2.3 g/dL (3.4-5.0); Bilirubin Total 0.4 mg/dL (0.2-1.0); Potassium 3.6 mmol/L (3.5-5.1); Protein, Total 5.2 g/dL (6.4-8.2)
[2018-08-12] MEDS ORDERED: NA CHLORIDE 0.9% 500 ML IV ONE (10:25)
[2018-08-12] MEDS: D5 0.9 NS 1,000 ML IV SCH ×2 (10:54→19:37)
[2018-08-12] MEDS ORDERED: NA CHLORIDE 0.9% 750 ML IV ONE (11:20)
[2018-08-12] MEDS: NOREPINEPHRINE 4 MG in D5W 250 ML IV PRN ×2 (11:49→20:03)
--- NOTE | 2018-08-12 13:47 | RAD REPORT ---
EXAM DESCRIPTION: RAD - Chest Single View - 08/12/2018 1:40 pm CLINICAL HISTORY: PICC line placement COMPARISON: Chest Single View dated 08/12/2018; Chest Single View dated 08/11/2018; Chest Single View da sidra 08/06/2018; Chest Single View dated 01/03/2018 FINDINGS: Portable chest was obtained following placement of a left upper extremity PICC line. The c atheter tip projects over the SVC..
[2018-08-12 13:53] LABS: Potassium 3.6 mmol/L (3.5-5.1)
--- NOTE | 2018-08-12 15:14 | RAD REPORT ---
EXAM DESCRIPTION: CTAbdomen Pelvis W Contrast - 08/12/2018 3:04 pm CLINICAL HISTORY: Abdominal pain. fever COMPARISON: Abdomen Pelvis W Contrast dated 01/20/2018; Abdomen Pelvis W Contrast dated 01/21/2017 ; CT ABD PELVIS W CONTRAST dated 10/24/2015; CT ABD PELVIS W CONTRAST dated 02/28/2015; Chest Single Vi ew dated 08/12/2018 TECHNIQUE: Biphasic CT imaging of the abdomen and pelvis was performed with 100 ml non-ionic IV cont rast. All CT scans are performed using dose optimization technique as appropriate and may include automated exposure control or mA/KV adjustment according to patient size. FINDINGS: Postsurgical changes are seen in the right infrahilar region with right posterior pleural thickening. Mild fatty liver is identified with 20 millimeter hepatic cyst in the left lobe again seen, unchanged . No aggressive liver lesion or intrahepatic biliary dilatation is identified. The spleen, adrenal gl ands and left kidney are normal. The right kidney contains a 5.6 cm benign cyst superiorly. Atrophy t he pancreatic tail is seen. No pancreatic mass is present. No bowel obstruction, free air, free fluid or abscess. Right hemicolectomy is present. Prominent sigm oid diverticulosis is noted without diverticulitis. No evidence of significant lymphadenopathy. No o mental or mesenteric implants/nodularity seen. Lazaro catheter is in place. Moderate lumbar degenerative changes. IMPRESSION: No acute intra-abdominal or pelvic finding.
[2018-08-12] MEDS: VANCOMYCIN 1.75 GM in NA CHLORIDE 0.9% 500 ML IVPB SCH (18:31)
[2018-08-12] MEDS: OLANZapine 2.5 MG TAB PO SCH (21:00)
[2018-08-12] MEDS: TAMSULOSIN 0.4 MG SR CAP PO SCH (21:20)
[2018-08-13] MEDS: PIPER/TAZO/NS 3.375gm 3.375 GM/100 ML BAG IVPB SCH ×3 (00:53→16:08)
--- NOTE | 2018-08-13 01:08 | PN ---
Date of Progress Note: 08/12/2018 Subjective: The patient was seen this morning for followup. Last night, the patient's temperature w ent up to 104.2 degrees Fahrenheit and Tylenol and Motrin was ordered. IV fluid was ordered at that time. Blood culture x2 was ordered and his antibiotics were changed last night. His temperature cam e down by this morning, but then as of this morning he started to have low blood pressure. His blood pressure dropped into range of 60-70 systolic. IV fluid bolus was started and decision was made to transfer him to ICU. This morning when I saw him before this episode of low blood pressure, he was s leeping, easily arousable, not in distress. Denied any specific complaints. Objective: Vital Signs: Reviewed. HEENT Examination: Unremarkable. Lungs: Clear to auscultation. Heart: Sounds normal. Abdomen: Soft. Bowel sounds normal. No guarding, rigidity, tenderness, distention. Extremity Exam: No leg edema. Skin Examination: No evidence of any rash anywhere and the patient was examined from head to toe thi s morning to look for any area of any infection. There was no evidence of any redness of the skin an ywhere. Labs: Reviewed. Impression: 1.Urinary tract infection, rule out sepsis. 2.Phenobarbital toxicity. 3.Seizure disorder. 4.Schizophrenia. Plan: Once the patient's blood pressure started to drop low in range of 60-70 systolic, we started h im on IV fluid boluses and subsequently he was moved to ICU. We continued IV fluid boluses in the IC U, total of 2 L of IV fluid was given and he was started on vasopressor medication, Levophed. He has adequate amount of urine output, approximately 1000 cc of urine output was noted after Lazaro cathete r was placed around the time of transfer to ICU till right now. He is maintaining good adequate oxyg en saturation. Chest x-ray shows shallow inspiration. CAT scan of the abdomen came back unremarkabl e. Urinalysis is abnormal consistent with urinary tract infection. So at this point, we are concern ed about urinary tract infection and possibility of sepsis. His procalcitonin level today was 22. L ast night when his temperature went up to 104, we discontinued ceftriaxone which was started yesterda y morning and as of last night, we started him on Zosyn and vancomycin. We will continue this antibi otics, followup on urine culture results, and then decide if we need to change antibiotics or not dep ending on the culture results. This evening, I went back to see him in ICU. His systolic blood pres sure was 114. He was awake, alert, oriented, not in distress, back to his normal usual self. On phy sical exam, his lungs were clear. Abdomen was soft. We will continue current antibiotics. We will try to wean off vasopressor medication overnight if possible. I will see him tomorrow morning for bradley hubbard. JEANNIE/MODL Voice ID: [id number] Report ID: [id number]
[2018-08-13] MEDS: D5 0.9 NS 1,000 ML IV SCH ×2 (05:45→13:19)
[2018-08-13] MEDS: NOREPINEPHRINE 4 MG in D5W 250 ML IV PRN (06:13)
[2018-08-13 06:51] LABS: Absolute Lymphocytes (CBC) 0.5 K/uL (0.7-4.9); Absolute Monocytes 0.7 K/uL (0.1-1.3); Absolute Neutrophil 7.5 K/uL (1.8-8.0); Basophils % 0.7 % (0-1.3); Eosinophils % 6.8 % (0-4.4); Hematocrit 32.6 % (39.6-49.0); Lymphocytes % 5.3 % (15.3-44.8); MPV 8.8 fL (7.6-11.3); RBC Red Blood Cell Count 3.41 M/uL (4.33-5.43)
[2018-08-13 07:01] LABS: Albumin 2.2 g/dL (3.4-5.0); Bilirubin Total 0.3 mg/dL (0.2-1.0); Magnesium 1.8 mg/dL (1.8-2.4); Phenytoin (Dilantin) Level 10.1 ug/mL (10.0-20.0); Potassium 3.6 mmol/L (3.5-5.1); Protein, Total 5.3 g/dL (6.4-8.2)
[2018-08-13] MEDS: METOPROLOL TAR 25 MG TAB PO SCH ×2 (08:36→22:19)
[2018-08-13] MEDS: PHENYTOIN ER 100 MG CAP PO SCH ×3 (08:36→20:03)
[2018-08-13] MEDS: ARIPiprazole 5 MG TAB PO SCH (09:18)
[2018-08-13] MEDS: VANCOMYCIN 1.75 GM in NA CHLORIDE 0.9% 500 ML IVPB SCH (13:17)
[2018-08-13] MEDS: OLANZapine 2.5 MG TAB PO SCH (20:04)
[2018-08-13] MEDS: TAMSULOSIN 0.4 MG SR CAP PO SCH (20:04)
[2018-08-13] MEDS: ACETAMINOPHEN 500 MG TAB PO PRN (23:24)
[2018-08-14] MEDS: PIPER/TAZO/NS 3.375gm 3.375 GM/100 ML BAG IVPB SCH ×3 (00:22→16:37)
--- NOTE | 2018-08-14 01:18 | PN ---
Date of Progress Note: 08/13/2018 Subjective: The patient was seen this morning for followup. He was lying in bed in ICU, not in dist ress. Awake, alert, and oriented. Intake, output records reviewed. Denies any complaints this morn ing. Objective: Vital Signs: Reviewed. HEENT: Unremarkable. Lungs: Clear to auscultation. Heart: Sounds normal. Abdomen: Soft. Bowel sounds normal. No guarding, rigidity, tenderness, or distention. Extremities: No leg edema. Laboratory Data: Reviewed. Impression: 1.Urinary tract infection. 2.Rule out sepsis. 3.Phenobarbital toxicity. 4.Seizure disorder. 5.Schizophrenia. Plan: The patient's WBC count is normal. Procalcitonin is much better today than yesterday. Cultur e results pending. We will continue current empiric antibiotics. Follow up on culture results. Onc e the final report is available, then we will decide final choice of antibiotic and duration of antib iotic at that time. The patient was on vasopressor medication this morning, which we were able to di scontinue during the course of day today. We will keep him in ICU today and plan is to transfer him out of ICU to regular room tomorrow. I will see him tomorrow for pablo villanueva. JEANNIE/MODL Voice ID: [id number] Report ID: [id number]
[2018-08-14 05:53] LABS: Absolute Lymphocytes (CBC) 0.7 K/uL (0.7-4.9); Absolute Monocytes 0.6 K/uL (0.1-1.3); Absolute Neutrophil 3.6 K/uL (1.8-8.0); Basophils % 0.7 % (0-1.3); Hematocrit 30.9 % (39.6-49.0); Lymphocytes % 13.1 % (15.3-44.8); MPV 8.8 fL (7.6-11.3); Monocytes % 10.8 % (3.3-12.3); RBC Red Blood Cell Count 3.25 M/uL (4.33-5.43)
[2018-08-14 06:06] LABS: BUN Blood Urea Nitrogen 8 mg/dL (7-18); Bicarbonate 29 mmol/L (21-32); Glucose Level 91 mg/dL (74-106); Magnesium 1.6 mg/dL (1.8-2.4); Potassium 3.1 mmol/L (3.5-5.1); Sodium Level 145 mmol/L (136-145)
[2018-08-14] MEDS: D5 0.9 NS 1,000 ML IV SCH ×4 (06:24→21:16)
[2018-08-14] MEDS: VANCOMYCIN 1.75 GM in NA CHLORIDE 0.9% 500 ML IVPB SCH ×2 (06:28→23:50)
[2018-08-14] MEDS: METOPROLOL TAR 25 MG TAB PO SCH ×2 (08:34→20:39)
[2018-08-14] MEDS: PHENYTOIN ER 100 MG CAP PO SCH ×3 (08:35→20:39)
[2018-08-14] MEDS: PHENOBARBITAL 32.4 MG TABLET PO SCH ×3 (08:35→20:39)
[2018-08-14] MEDS: ARIPiprazole 5 MG TAB PO SCH (08:35)
[2018-08-14] MEDS ORDERED: POTASSIUM CL SA 10 MEQ TAB PO ONE (16:21)
[2018-08-14] MEDS: TAMSULOSIN 0.4 MG SR CAP PO SCH (20:39)
[2018-08-14] MEDS: OLANZapine 2.5 MG TAB PO SCH (21:16)
[2018-08-15] MEDS ORDERED: POTASSIUM CL SA 10 MEQ TAB PO ONE ×2 (00:18→17:42)
[2018-08-15] MEDS: PIPER/TAZO/NS 3.375gm 3.375 GM/100 ML BAG IVPB SCH ×3 (01:00→16:49)
[2018-08-15 06:34] LABS: Absolute Lymphocytes (CBC) 0.9 K/uL (0.7-4.9); Absolute Monocytes 0.5 K/uL (0.1-1.3); Absolute Neutrophil 4.1 K/uL (1.8-8.0); Basophils % 0.7 % (0-1.3); Eosinophils % 9.3 % (0-4.4); Hematocrit 32.1 % (39.6-49.0); Lymphocytes % 15.2 % (15.3-44.8); MPV 8.4 fL (7.6-11.3); Monocytes % 7.6 % (3.3-12.3); RBC Red Blood Cell Count 3.38 M/uL (4.33-5.43)
[2018-08-15 06:43] LABS: BUN Blood Urea Nitrogen 4 mg/dL (7-18); Bicarbonate 30 mmol/L (21-32); Glucose Level 118 mg/dL (74-106); Magnesium 1.9 mg/dL (1.8-2.4); Potassium 3.4 mmol/L (3.5-5.1); Sodium Level 146 mmol/L (136-145)
[2018-08-15] MEDS: D5 0.9 NS 1,000 ML IV SCH (07:38)
[2018-08-15] MEDS: ARIPiprazole 5 MG TAB PO SCH (08:55)
[2018-08-15] MEDS: PHENOBARBITAL 32.4 MG TABLET PO SCH ×3 (08:56→20:57)
[2018-08-15] MEDS: PHENYTOIN ER 100 MG CAP PO SCH ×3 (08:56→20:57)
[2018-08-15] MEDS: METOPROLOL TAR 25 MG TAB PO SCH ×2 (08:56→20:56)
[2018-08-15] MEDS ORDERED: POTASSIUM 25 MEQ EFFERV TAB PO ONE (09:00)
--- NOTE | 2018-08-15 16:17 | PN ---
Date of Progress Note: 08/15/2018 Subjective: The patient was seen this morning for followup. He was on the medical floor, lying in b ed, sleeping, easily arousable. Denied any complaints. Objective: Vital Signs: Reviewed. HEENT: Unremarkable. Lungs: Clear to auscultation. Heart: Sounds normal. Abdomen: Soft. Bowel sounds normal. No guarding, rigidity, tenderness, or distention. Extremities: No leg edema. Laboratory Data: White count 6.1, hemoglobin 11, platelets 182. Sodium 146, potassium 3.4, chloride 112, bicarb 30, BUN 4, creatinine 0.77, glucose 118, magnesium 1.9. Impression: 1.Urinary tract infection. 2.Rule out sepsis. 3.Hypokalemia. 4.Seizure disorder. 5.Schizophrenia. 6.Anemia. Plan: We will go ahead and continue current antibiotic, which is Zosyn and vancomycin. So far, cult ures are negative. We will discontinue IV fluid as his blood pressure has been stable. He is tolera ting diet very well. We will remove Lazaro catheter. Physical therapy to continue to work with the p atient. We will see him tomorrow for followup. Possible discharge to go to shelter sometime ne xt week. The patient reported today that upon discharge he would like to go to [facility] instead of going back to [facility]. His family has been talking to me about that since he came into the hospital and I have advised family members to communicate with Social Service to assist with such arrangements. JEANNIE/MODL Voice ID: [id number] Report ID: [id number]
--- NOTE | 2018-08-15 16:22 | PN ---
Date of Progress Note: 08/14/2018 Subjective: The patient was seen for followup this morning. He was in ICU, not in any distress. No new complaints or problems reported. Hemodynamically, he is stable. He has not received any vasopressor medication in over 24 hours. Objective: Vital Signs: Reviewed. HEENT: Unremarkable. Lungs: Clear to auscultation. Heart: Sounds normal. Abdomen: Soft. Bowel sounds normal. No guarding, rigidity, tenderness, distention. Extremities: No leg edema. Laboratory Data: White count 5.5, hemoglobin 10.5, platelets 145. Sodium 145, potassium 3.1, chloride 111, bicarb 29, BUN 8, creatinine 0.80, glucose 91, magnesium 1.6. Impression: 1. Urinary tract infection. 2. Rule out sepsis. 3. Hypokalemia. 4. Hypomagnesemia. 5. Anemia. 6. Seizure disorder. 7. Schizophrenia. Plan: We will continue current antibiotics. The patient's condition is stable for transfer. We will transfer out of ICU to regular room. See copy of transfer order for details. Continue antibiotic, IV fluid. Physical Therapy to continue to work with the patient. I will see him tomorrow for followup. The patient's phenobarbital toxicity problem has resolved. Yesterday, his phenobarbital level was 35.4, and we have started him on phenobarbital 32 mg 3 times a day. I will see him tomorrow for followup. JEANNIE/MODL Voice ID: [id number] Report ID: [id number] MTDD
[2018-08-15] MEDS: VANCOMYCIN 1.75 GM in NA CHLORIDE 0.9% 500 ML IVPB SCH (19:08)
[2018-08-15] MEDS: TAMSULOSIN 0.4 MG SR CAP PO SCH (20:56)
[2018-08-15] MEDS: LISINOPRIL 5 MG TAB PO SCH (20:57)
[2018-08-15] MEDS: OLANZapine 2.5 MG TAB PO SCH (21:00)
[2018-08-16] MEDS: PIPER/TAZO/NS 3.375gm 3.375 GM/100 ML BAG IVPB SCH ×3 (08:14→17:53)
[2018-08-16] MEDS: ARIPiprazole 5 MG TAB PO SCH (08:15)
[2018-08-16] MEDS: PHENYTOIN ER 100 MG CAP PO SCH ×3 (08:15→21:09)
[2018-08-16] MEDS: PHENOBARBITAL 32.4 MG TABLET PO SCH ×3 (08:15→21:09)
[2018-08-16] MEDS: METOPROLOL TAR 25 MG TAB PO SCH ×2 (08:15→21:05)
[2018-08-16 09:56] LABS: BUN Blood Urea Nitrogen 4 mg/dL (7-18); Bicarbonate 28 mmol/L (21-32); Glucose Level 120 mg/dL (74-106); Potassium 3.5 mmol/L (3.5-5.1); Sodium Level 143 mmol/L (136-145)
[2018-08-16] MEDS: POTASSIUM 25 MEQ EFFERV TAB PO ONE ×2 (12:00→13:16)
[2018-08-16] MEDS: VANCOMYCIN 1.75 GM in NA CHLORIDE 0.9% 500 ML IVPB SCH (13:18)
[2018-08-16] MEDS ORDERED: POTASSIUM 25 MEQ EFFERV TAB PO ONE (14:00)
--- NOTE | 2018-08-16 15:59 | PN ---
Date of Progress Note: 08/16/2018 Subjective: The patient was seen this morning for followup. No new complaints or problems reported. Sleeping, easily arousable, not in any distress. He reports having bowel movement day before yeste rday. Denies any abdominal pain, nausea, or vomiting. Objective: Vital Signs: Reviewed. HEENT: Unremarkable. Lungs: Clear to auscultation. Heart: Heart sounds normal. Abdomen: Soft. Bowel sounds normal. No guarding, rigidity, tenderness, or distention. Extremities: No leg edema. Laboratory Data: Sodium 143, potassium 3.5, chloride 109, bicarb 28, BUN 4, creatinine 0.81, glucose 120, magnesium 2. Phenobarbital level of 33.7. Impression: 1.Urinary tract infection. 2.Rule out sepsis. 3.Phenobarbital toxicity. 4.Seizure disorder. 5.Schizophrenia. 6.Hypertension. Plan: We will continue current antihypertensive medication. Continue current empiric antibiotics. So far, the patient's cultures are negative. He is hemodynamically stable. Plan is to continue curr ent IV antibiotics, which is Zosyn and vancomycin while he is here at the hospital, and hopefully by Friday of this week, we should be able to discharge [facility], and he will not need any IV antibiotics upon discharge. The patient came to hospital from [facility], [facility] the patient and his family have expressed desire to go to [facility] upon discharge if p ossible, so we will request consultation from Social Service to assist with that. I will see him tomorrow for followup. He is tolerating diet well. No need for IV fluid. JEANNIE/MODL Voice ID: [id number] Report ID: [id number]
[2018-08-16] MEDS: LISINOPRIL 5 MG TAB PO SCH (21:08)
[2018-08-16] MEDS: TAMSULOSIN 0.4 MG SR CAP PO SCH (21:09)
[2018-08-16] MEDS: OLANZapine 2.5 MG TAB PO SCH (21:20)
[2018-08-17] MEDS: PIPER/TAZO/NS 3.375gm 3.375 GM/100 ML BAG IVPB SCH ×3 (00:35→17:11)
[2018-08-17 05:32] LABS: Potassium 3.4 mmol/L (3.5-5.1)
[2018-08-17] MEDS: VANCOMYCIN 1.75 GM in NA CHLORIDE 0.9% 500 ML IVPB SCH (06:11)
[2018-08-17] MEDS: PHENOBARBITAL 32.4 MG TABLET PO SCH ×3 (08:51→20:38)
[2018-08-17] MEDS: METOPROLOL TAR 25 MG TAB PO SCH ×2 (08:52→20:38)
[2018-08-17] MEDS: ARIPiprazole 5 MG TAB PO SCH (08:52)
[2018-08-17] MEDS: PHENYTOIN ER 100 MG CAP PO SCH ×3 (08:53→20:37)
[2018-08-17] MEDS ORDERED: POTASSIUM 25 MEQ EFFERV TAB PO ONE (09:00)
[2018-08-17] MEDS: TAMSULOSIN 0.4 MG SR CAP PO SCH (20:37)
[2018-08-17] MEDS: LISINOPRIL 5 MG TAB PO SCH (20:38)
[2018-08-17] MEDS: OLANZapine 2.5 MG TAB PO SCH (20:41)
[2018-08-18] MEDS: PIPER/TAZO/NS 3.375gm 3.375 GM/100 ML BAG IVPB SCH ×3 (00:04→17:07)
[2018-08-18] MEDS: VANCOMYCIN 1.75 GM in NA CHLORIDE 0.9% 500 ML IVPB SCH (00:06)
--- NOTE | 2018-08-18 02:05 | PN ---
Date of Progress Note: 08/17/2018 Subjective: The patient was seen this morning for followup. No new complaints or problems reported by the patient lying in bed, not in distress. Objective: Vital Signs: Reviewed. HEENT: Unremarkable. Lungs: Clear to auscultation. Heart: Sounds normal. Abdomen: Soft. Bowel sounds normal. No guarding, rigidity, tenderness, or distention. Extremities: No leg edema. Laboratory Data: Sodium 145, potassium 3.4, chloride 110, bicarb 28, BUN 7, creatinine 0.90, and glu cose 88. Impression: 1.Urinary tract infection. 2.Seizure disorder. 3.Schizophrenia. 4.Hypokalemia. 5.Hypertension. Plan: We will continue current medication. Replace electrolyte per protocol. We will continue curr ent antibiotics, social service to assist with discharge planning. Possible discharge to go to [facility] in next day or 2 days. Physical therapy to help ambulate the patient. JEANNIE/MODL Voice ID: [id number] Report ID: [id number]
[2018-08-18] MEDS: ARIPiprazole 5 MG TAB PO SCH (08:37)
[2018-08-18] MEDS: PHENOBARBITAL 32.4 MG TABLET PO SCH ×3 (08:37→20:49)
[2018-08-18] MEDS: PHENYTOIN ER 100 MG CAP PO SCH ×3 (08:37→20:50)
[2018-08-18] MEDS: METOPROLOL TAR 25 MG TAB PO SCH ×2 (08:38→20:50)
[2018-08-18] MEDS: OLANZapine 2.5 MG TAB PO SCH (20:49)
[2018-08-18] MEDS: LISINOPRIL 5 MG TAB PO SCH (20:50)
[2018-08-18] MEDS: TAMSULOSIN 0.4 MG SR CAP PO SCH (20:50)
[2018-08-19] MEDS: PIPER/TAZO/NS 3.375gm 3.375 GM/100 ML BAG IVPB SCH (01:01)
--- NOTE | 2018-08-19 01:35 | PN ---
Date of Progress Note: 08/18/2018 Subjective: The patient was seen this morning for followup. No new complaints or problems reported. Lying in bed, not in any distress. Objective: HEENT: Unremarkable. Lungs: Clear to auscultation. Heart: Sounds normal. Abdomen: Soft. Bowel sounds normal. No guarding, rigidity, tenderness, distention. Extremities: Show no leg edema. Impression: 1.Urinary tract infection. 2.Schizophrenia. 3.Seizure disorder. 4.Hypokalemia. 5.Hypertension. Plan: We will go ahead and continue physical therapy. Continue current antibiotics. We are waiting on disposition for the patient to go to halfway. Details were discussed with social service wh o is working with the halfway and family member for discharge planning. The patient is medicall y stable for discharge soon as arrangements gets completed for him to go to halfway. JEANNIE/MODL Voice ID: [id number] Report ID: [id number]
[2018-08-19 05:12] LABS: Absolute Monocytes 0.9 K/uL (0.1-1.3); Absolute Neutrophil 4.7 K/uL (1.8-8.0); Eosinophils % 6.5 % (0-4.4); Hematocrit 32.4 % (39.6-49.0); Lymphocytes % 14.5 % (15.3-44.8); MPV 8.4 fL (7.6-11.3); Monocytes % 12.6 % (3.3-12.3); RBC Red Blood Cell Count 3.39 M/uL (4.33-5.43)
[2018-08-19 05:55] LABS: Magnesium 2.3 mg/dL (1.8-2.4); Phenytoin (Dilantin) Level 11.4 ug/mL (10.0-20.0); Potassium 3.6 mmol/L (3.5-5.1)
[2018-08-19] MEDS ORDERED: VANCOMYCIN 1.75 GM in NA CHLORIDE 0.9% 500 ML IVPB SCH (06:00)
[2018-08-19] MEDS ORDERED: POTASSIUM CL SA 10 MEQ TAB PO ONE (07:50)
[2018-08-19] MEDS ORDERED: NA CHLORIDE 0.9% 1,000 ML IV SCH (08:00)
[2018-08-19] MEDS: ARIPiprazole 5 MG TAB PO SCH (09:35)
[2018-08-19] MEDS: METOPROLOL TAR 25 MG TAB PO SCH ×2 (09:36→21:13)
[2018-08-19] MEDS: PHENYTOIN ER 100 MG CAP PO SCH ×3 (09:37→21:12)
[2018-08-19] MEDS: PHENOBARBITAL 32.4 MG TABLET PO SCH (09:37)
--- NOTE | 2018-08-19 11:12 | RAD REPORT ---
EXAM DESCRIPTION: US - Renal Ultrasound-Complete - 08/19/2018 9:25 am CLINICAL HISTORY: . Acute renal failure COMPARISON: 2014 FINDINGS: The right kidney measures 13 cm with an increased echotexture. A 5.6 centimeter right marina l cyst The left kidney measures cm with an increased echotexture. Hydronephrosis is not seen. IMPRESSION: A 5.6 centimeter right renal cyst Increased renal echotexture consistent with parenchymal disease
[2018-08-19] MEDS: NACHLORIDE 0.45% 1,000 ML IV SCH ×2 (15:27→21:12)
[2018-08-19 16:36] LABS: Urine Appearance CLEAR; Urine Bilirubin NEGATIVE (NEG); Urine Blood NEGATIVE (NEG); Urine Color YELLOW; Urine Glucose NEGATIVE (NEG); Urine Protein NEGATIVE (NEG); Urine Specific Gravity <=1.005 (1.005-1.030); Urine Urobilinogen 0.2 mg/dL (0.2-1.0)
[2018-08-19 16:55] LABS: Urine Bacteria NONE SEEN /HPF (NONE SEEN); Urine Culture Reflex Order NOT NEEDED; Urine RBC <5 /HPF (NONE SEEN)
[2018-08-19 20:23] LABS: Potassium 3.8 mmol/L (3.5-5.1)
[2018-08-19] MEDS: OLANZapine 2.5 MG TAB PO SCH (21:11)
[2018-08-19] MEDS: TAMSULOSIN 0.4 MG SR CAP PO SCH (21:12)
--- NOTE | 2018-08-19 21:35 | P.CNS ---
Date of Consult: 08/19/18 Reason for Consult: GYPSY Requesting Physician: Jose Tello Primary Care Provider: Dr. Tello Chief Complaint: AMS History of Present Illness: 68 yo WM HTN presented to the ER with AMS. On August 19, he developed GYPSY of unclear etiology. The family and the patient report no acute events from August 17-. No urinary difficulties. No NSAIDs. He received IV contrast on August 12. Dr. Tello: A 68-year-old male patient who was under my care for many years until sometime in June of this year. He was hearing some voices and he was brought into our emergency room. At that time, he was living at independent facility across the street from hospital called [facility]. From our hospital he was sent to [facility] the [facility] in [place], where he was kept for about 2 weeks and as family informs me today about all these details, they told me that at end of 2 weeks, family was contacted by this facility and they were told that he is ready for discharge and for them to come and pick him up. When they went to that facility, they found him sitting in wheelchair and he was discharged with some discharge medications. When family brought him home , they realized that he was extremely weak, that they had hard time getting him out of car to the house. Family was not able to take care of him as they work and rather the patient was not able to take care of himself because of his condition, so they contacted the halfway and placed him in [facility] and all the paperwork that they got from [place], they gave it to the halfway, that included his medication list, and as I understand from family that this medication list were continued at the halfway. He has not done well in halfway. He has been very sleepy and weak to the extent that today he was sent to the emergency room because of altered mental status. After he was evaluated in the ER, we found out that the patient actually had phenobarbital toxicity and I was contacted requesting admission to the hospital for this problem. When I saw him in the evening, he was lying in bed, trying to open his eyes, but did not answer any of my questions. ER: 14:01 This 68 yrs old Male presents to ER via EMS with complaints of General kdr Weakness. 14:01 The patient was sent from the [place] because he was leaning more than usual at breakfast kdr and not eating as much. Onset: The symptoms/episode began/occurred this morning. Severity of symptoms: At their worst the symptoms were mild in the emergency department the symptoms The patient is reported to be at his baseline on presentation to the ED. Unable to elicit any history or discernable problem at time of presentation. It is unknown whether or not the patient has had similar symptoms in the past. It is unknown whether or not the patient has recently seen a physician. Allergies No Known Drug Allergies Allergy (Verified 03/13/15 10:12) Unknown No Known Allergies Allergy (Uncoded 09/08/16 03:05) Unknown Home medications list reviewed: Yes Home Medications: Aripiprazole [Abilify] 20 mg PO DAILY 08/07/18 Lisinopril [Prinivil] 5 mg PO BEDTIME 08/07/18 Metoprolol Tartrate [Lopressor] 12.5 mg PO BID 08/07/18 OLANZapine [Zyprexa] 5 mg PO BEDTIME 08/07/18 PHENobarbital [Phenobarbital] 97.2 mg PO Q8H 08/07/18 Phenytoin Sodium Extended [Dilantin] 100 mg PO TID 08/07/18 Tamsulosin [Flomax*] 1 cap PO BEDTIME 08/07/18 - Past Medical/Surgical History Diabetic: No -: Seizures 2008 -: hypertension -: schizophrenia -: colon cancer -: cva -: lung sx (right) -: colon sx -: Appendectomy - Family History Father Medical History: Heart disease - Social History Smoking Status: Former smoker Alcohol use: No CD- Drugs: No Caffeine use: Yes Place of [place] Review of Systems 10-point ROS is otherwise unremarkable Physical Examination Temp Pulse Resp BP Pulse Ox 98.3 F 70 16 154/84 H 94 08/19/18 20:00 08/19/18 21:13 08/19/18 20:00 08/19/18 21:13 08/19/18 20:00 General: Alert, In no apparent distress, Cooperative HEENT: Atraumatic, Mucous membr. moist/pink Neck: Supple Respiratory: Clear to auscultation bilaterally Cardiovascular: No edema, Regular rate/rhythm, No rubs Gastrointestinal: Soft and benign, Non-distended Musculoskeletal: No clubbing, No contractures Integumentary: No rashes, No cyanosis Neurological: Normal speech Serum creatinine: 0.9(Aug 17); 2.73(Aug 19). Blood work reviewed in the chart. Imagings Data: EXAM DESCRIPTION: US - Renal Ultrasound-Complete - 08/19/2018 9:25 am CLINICAL HISTORY: . Acute renal failure COMPARISON: 2014 FINDINGS: The right kidney measures 13 cm with an increased echotexture. A 5.6 centimeter right renal cyst The left kidney measures cm with an increased echotexture. Hydronephrosis is not seen. IMPRESSION: A 5.6 centimeter right renal cyst Increased renal echotexture consistent with parenchymal disease Conclusions/Impression: GYPSY of unclear etiology. Differential includes vancomycin toxicity in the setting of recent IV contrast exposure, Pre-Renal Azotemia, ATN. Persistent Hypernatremia suspicious for possible underlying Diabetes Insipidus. Hypokalemia. HTN. Anemia in chronic illness. Hypocalcemia. Mild Rhabdomyolysis. Hypoalbuminemia. P/ Continue current POC and Medications. Change IVF 1/2NS. Agree with holding vancomycin. Agree with potassium replacement. Start Vitamin D. No NSAIDs. AM labs. Daily weight. Thank you kindly for the consultation.
[2018-08-19] MEDS ORDERED: KCL 20 MEQ/100 mL IVPB 20 MEQ/100 ML BAG IV SCH (22:00)
[2018-08-19] MEDS: VITAMIN D 5,000 UNIT CAP PO SCH (22:27)
[2018-08-19] MEDS: CALCITROL 0.25 MCG CAP PO SCH (22:27)
--- NOTE | 2018-08-20 00:30 | PN ---
Date of Progress Note: 08/19/2018 Subjective: The patient was seen this morning for followup. Sleeping, arousable, not in any distres s. Denies any complaints. No vomiting. No diarrhea. Ambulating well with Physical Therapy as he r eports. Objective: Vital Signs: Reviewed. HEENT: Unremarkable. Lungs: Clear to auscultation. Heart: Sounds normal. Abdomen: Soft. Bowel sounds are normal. No guarding, rigidity, tenderness, or distention. Extremities: No leg edema. Laboratory Data: Vancomycin trough level 16.3. Dilantin level 11.4. Phenobarbital level 29.1. Sod ium 148, potassium 3.6, chloride 112, bicarb 28, BUN 13, creatinine 2.73, glucose 94. His creatinine day before yesterday was 0.90. White count today 7.2, hemoglobin 10.8, and platelets 282. Impression: 1.Acute renal failure. 2.Urinary tract infection. 3.Seizure disorder. 4.Schizophrenia. 5.Phenobarbital toxicity, resolved. 6.Anemia. Plan: The patient's acute renal failure could be due to multiple factors. Currently, he has been on Zosyn and vancomycin for little over a week. We will go ahead and discontinue these antibiotics as it could be potentially causing the acute renal failure. We will also discontinue his lisinopril in setting of acute renal failure. At an appropriate time, we will consider to restart it. IV fluid wi ll be given at 125 cc/hour. Renal ultrasound was done today and is unremarkable except for benign-ap pearing renal cysts. Nephrology consultation was requested for this acute renal failure, and we will repeat blood work this evening, and we will follow up on it. JEANNIE/MODL Voice ID: [id number] Report ID: [id number]
[2018-08-20 04:25] LABS: Urine Appearance CLEAR; Urine Bilirubin NEGATIVE (NEG); Urine Blood TRACE (NEG); Urine Color YELLOW; Urine Glucose NEGATIVE (NEG); Urine Protein NEGATIVE (NEG); Urine Specific Gravity <=1.005 (1.005-1.030); Urine Urobilinogen 0.2 mg/dL (0.2-1.0)
[2018-08-20 04:42] LABS: Absolute Monocytes 0.8 K/uL (0.1-1.3); Absolute Neutrophil 4.6 K/uL (1.8-8.0); Basophils % 1.3 % (0-1.3); Eosinophils % 6.2 % (0-4.4); Hematocrit 31.3 % (39.6-49.0); Lymphocytes % 14.7 % (15.3-44.8); MPV 8.3 fL (7.6-11.3); Monocytes % 10.9 % (3.3-12.3); RBC Red Blood Cell Count 3.24 M/uL (4.33-5.43)
[2018-08-20 04:59] LABS: Albumin 2.4 g/dL (3.4-5.0); Bilirubin Total 0.3 mg/dL (0.2-1.0); Phosphorus 3.1 mg/dL (2.5-4.9); Potassium 3.6 mmol/L (3.5-5.1); Protein, Total 5.7 g/dL (6.4-8.2); Uric Acid 5.5 mg/dL (3.5-7.2)
[2018-08-20 05:17] LABS: Urine Bacteria <20 /HPF (NONE SEEN); Urine Culture Reflex Order NOT NEEDED; Urine RBC <5 /HPF (NONE SEEN)
[2018-08-20] MEDS: NACHLORIDE 0.45% 1,000 ML IV SCH ×3 (05:46→21:53)
[2018-08-20] MEDS ORDERED: KCL 20 MEQ/100 mL IVPB 20 MEQ/100 ML BAG IV SCH (06:00)
[2018-08-20] MEDS: PHENYTOIN ER 100 MG CAP PO SCH ×3 (09:51→21:57)
[2018-08-20] MEDS: ARIPiprazole 5 MG TAB PO SCH (09:51)
[2018-08-20] MEDS: CALCITROL 0.25 MCG CAP PO SCH (09:52)
[2018-08-20] MEDS: VITAMIN D 5,000 UNIT CAP PO SCH (09:52)
[2018-08-20] MEDS: TAMSULOSIN 0.4 MG SR CAP PO SCH ×2 (09:52→21:57)
[2018-08-20] MEDS: METOPROLOL TAR 25 MG TAB PO SCH ×2 (09:52→21:57)
[2018-08-20] MEDS: ACETAMINOPHEN 500 MG TAB PO PRN (17:40)
[2018-08-20 18:29] VITALS: BMI 29.5
[2018-08-20] MEDS ORDERED: POTASSIUM CL SA 10 MEQ TAB PO ONE (20:39)
--- NOTE | 2018-08-20 20:44 | P.PN ---
Date of Service: 08/20/18 Vital Signs Temp Pulse Resp BP Pulse Ox 99.2 F 66 18 168/74 H 98 08/20/18 16:00 08/20/18 16:00 08/20/18 16:00 08/20/18 16:00 08/20/18 16:00 Medications Acetaminophen (Tylenol -Extra Strength) 500 mg PO Q6H PRN PRN Reason: [id number] Stop: 09/05/18 16:50 Last Admin: 08/20/18 17:40 Dose: 500 mg Aripiprazole (Abilify) 20 mg PO DAILY DEBRA Stop: 09/07/18 09:01 Last Admin: 08/20/18 09:51 Dose: 20 mg Calcitriol (Rocaltrol) 0.5 mcg PO DAILY DEBRA Stop: 09/18/18 21:16 Last Admin: 08/20/18 09:52 Dose: 0.5 mcg Cholecalciferol (Vitamin D 5,000 Iu Cap) 5,000 unit PO DAILY DEBRA Stop: 09/18/18 21:16 Last Admin: 08/20/18 09:52 Dose: 5,000 unit Sodium Chloride (Sodium Chloride 0.45%) 1,000 mls @ 100 mls/hr IV .Q10H DEBRA Stop: 09/19/18 21:01 Lisinopril (Prinivil) 10 mg PO BEDTIME DEBRA Stop: 09/19/18 21:01 Metoprolol Tartrate (Lopressor) 12.5 mg PO BID DEBRA Stop: 09/06/18 21:01 Last Admin: 08/20/18 09:52 Dose: 12.5 mg Olanzapine (Zyprexa) 5 mg PO BEDTIME DEBRA Stop: 09/06/18 21:01 Last Admin: 08/19/18 21:11 Dose: 5 mg Ondansetron HCl (Zofran) 4 mg IV Q4H PRN PRN Reason: NAUSEA / VOMITING Phenytoin Sodium (Dilantin Er Cap) 100 mg PO TID DEBRA Stop: 09/06/18 21:01 Last Admin: 08/20/18 14:16 Dose: 100 mg Potassium Chloride (Klor-Con 10 Meq Tab) 20 meq PO 1X ONE Stop: 08/20/18 20:40 Sodium Chloride (Normal Saline Flush) 10 ml IV BID DEBRA Stop: 09/05/18 21:01 Last Admin: 08/20/18 09:00 Dose: Not Given Tamsulosin HCl (Flomax) 0.4 mg PO BID DEBRA Stop: 09/18/18 21:01 Last Admin: 08/20/18 09:52 Dose: 0.4 mg Microbiology Results 08/06/18 14:05 Blood - Blood Aerobic Blood Culture - Final No growth in 5 days. 08/06/18 14:05 Blood - Blood Anaerobic Blood Culture - Final No growth in 5 days. 08/06/18 13:50 Blood - Blood Aerobic Blood Culture - Final No growth in 5 days. 08/06/18 13:50 Blood - Blood Anaerobic Blood Culture - Final No growth in 5 days. Assessment/ Plan: Nephrology. Doing well. CPS stable without CP or SOB. +Urine output No acute events overnight. Vitals, medications, blood work and imaging reviewed in the chart. General: Alert, In no apparent distress, Cooperative HEENT: Atraumatic, Mucous membr. moist/pink Neck: Supple Respiratory: Clear to auscultation bilaterally Cardiovascular: No edema, Regular rate/rhythm, No rubs Gastrointestinal: Soft and benign, Non-distended Musculoskeletal: No clubbing, No contractures Integumentary: No rashes, No cyanosis Neurological: Normal speech Serum creatinine: 0.9(Aug 17); 2.73(Aug 19). Blood work reviewed in the chart. Imagings Data: EXAM DESCRIPTION: US - Renal Ultrasound-Complete - 08/19/2018 9:25 am CLINICAL HISTORY: . Acute renal failure COMPARISON: 2014 FINDINGS: The right kidney measures 13 cm with an increased echotexture. A 5.6 centimeter right renal cyst The left kidney measures cm with an increased echotexture. Hydronephrosis is not seen. IMPRESSION: A 5.6 centimeter right renal cyst Increased renal echotexture consistent with parenchymal disease Conclusions/Impression: GYPSY suspicious for multi-factorial ATN. Differential includes vancomycin toxicity in the setting of recent IV contrast exposure, Pre-Renal Azotemia, ATN. Persistent Hypernatremia suspicious for possible underlying Diabetes Insipidus. Hypokalemia. HTN. Anemia in chronic illness. Hypocalcemia. Mild Rhabdomyolysis. Hypoalbuminemia. P/ Continue current POC and Medications. Reduce IVF. Restart Lisinopril. Give potassium. Agree with holding vancomycin. No NSAIDs. AM labs. Daily weight.
[2018-08-20] MEDS: LISINOPRIL 10 MG TAB PO SCH (21:56)
[2018-08-20] MEDS: OLANZapine 2.5 MG TAB PO SCH (21:56)
--- NOTE | 2018-08-21 00:55 | PN ---
Date of Progress Note: 08/20/2018 Subjective: The patient was seen this morning for followup. Lying in bed, not in any distress. Den ies any complaints. Objective: Vital signs: Reviewed. HEENT: Unremarkable. Lungs: Clear to auscultation. Heart: Sounds normal. Abdomen: Soft. Bowel sounds normal. No guarding, rigidity, tenderness, or distention. Extremities: No leg edema. Laboratory Data: White count 6.9, hemoglobin 10.4, and platelets 248. Sodium 146, potassium 3.6, ch loride 112, bicarb 27, BUN 11, creatinine 2.48, and glucose 87. Liver function tests unremarkable. Impression: 1.Acute kidney failure. 2.Anemia. 3.Hypertension. 4.Schizophrenia. 5.Seizure disorder. Plan: We will go ahead and continue current IV fluid. The patient's renal function is slowly improv ing. Yesterday, creatinine was 2.73. Today, it is 2.48. Renal ultrasound was unremarkable except b enign-appearing kidney cyst. We will continue to follow up with [facility], monitor blood work on a daily basis, and I will see him tomorrow for followup. Once renal function normalizes, then our pl an is to discharge him to go to [facility]. Zosyn and vancomycin were discontinued yesterday. Lisinopril was also discontinued yesterday once acute renal failure problem was noted. JEANNIE/MODL Voice ID: [id number] Report ID: [id number]
[2018-08-21 04:42] LABS: Potassium 3.7 mmol/L (3.5-5.1)
[2018-08-21] MEDS ORDERED: KCL 20 MEQ/100 mL IVPB 20 MEQ/100 ML BAG IV SCH (05:00)
[2018-08-21] MEDS: NACHLORIDE 0.45% 1,000 ML IV SCH ×2 (05:27→17:57)
[2018-08-21] MEDS: CALCITROL 0.25 MCG CAP PO SCH (08:46)
[2018-08-21] MEDS: METOPROLOL TAR 25 MG TAB PO SCH ×2 (08:46→21:28)
[2018-08-21] MEDS: TAMSULOSIN 0.4 MG SR CAP PO SCH ×2 (08:46→21:28)
[2018-08-21] MEDS: VITAMIN D 5,000 UNIT CAP PO SCH (08:46)
[2018-08-21] MEDS: ARIPiprazole 5 MG TAB PO SCH (08:46)
[2018-08-21] MEDS: PHENYTOIN ER 100 MG CAP PO SCH ×3 (08:47→21:28)
--- NOTE | 2018-08-21 15:08 | PN ---
Date of Progress Note: 08/21/2018 Subjective: The patient was seen this morning for followup. Lying in bed, not in distress. Objective: Vital Signs: Reviewed. HEENT: Unremarkable. Lungs: Clear to auscultation. Heart: Sounds normal. Abdomen: Soft. Bowel sounds normal. No guarding, rigidity, tenderness or distention. Extremities: No leg edema. Laboratory Data: Sodium 145, potassium 3.7, chloride 111, bicarb 26, BUN 12, creatinine 2.34, creatinine day before yesterday was 2.73. Impression: 1. Acute renal failure, improving. 2. Phenobarbital toxicity, resolved. 3. Hypertension. 4. Seizure disorder. 5. Schizophrenia. Plan: We will continue current medication and IV fluid. Continue to follow with senior engineering associate. Renal function is improving, but slowly on a day-to-day basis. We will keep him in the hospital over the weekend. Earliest possible discharge to go to [facility] is this coming week on Friday. Details were discussed with the patient. JEANNIE/MOHAMUD Voice ID: [id number] Report ID: [id number] BETTE
--- NOTE | 2018-08-21 19:54 | P.PN ---
Date of Service: 08/21/18 Vital Signs Temp Pulse Resp BP Pulse Ox 99.1 F 65 18 141/73 H 96 08/21/18 16:00 08/21/18 16:00 08/21/18 16:00 08/21/18 16:00 08/21/18 16:00 Medications Acetaminophen (Tylenol -Extra Strength) 500 mg PO Q6H PRN PRN Reason: [id number] Stop: 09/05/18 16:50 Last Admin: 08/20/18 17:40 Dose: 500 mg Aripiprazole (Abilify) 20 mg PO DAILY DEBRA Stop: 09/07/18 09:01 Last Admin: 08/21/18 08:46 Dose: 20 mg Calcitriol (Rocaltrol) 0.5 mcg PO DAILY DEBRA Stop: 09/18/18 21:16 Last Admin: 08/21/18 08:46 Dose: 0.5 mcg Cholecalciferol (Vitamin D 5,000 Iu Cap) 5,000 unit PO DAILY DEBRA Stop: 09/18/18 21:16 Last Admin: 08/21/18 08:46 Dose: 5,000 unit Sodium Chloride (Sodium Chloride 0.45%) 1,000 mls @ 100 mls/hr IV .Q10H DEBRA Stop: 09/19/18 21:01 Last Admin: 08/21/18 17:57 Dose: 1,000 mls Lisinopril (Prinivil) 10 mg PO BEDTIME DEBRA Stop: 09/19/18 21:01 Last Admin: 08/20/18 21:56 Dose: 10 mg Metoprolol Tartrate (Lopressor) 12.5 mg PO BID DEBRA Stop: 09/06/18 21:01 Last Admin: 08/21/18 08:46 Dose: 12.5 mg Olanzapine (Zyprexa) 5 mg PO BEDTIME DEBRA Stop: 09/06/18 21:01 Last Admin: 08/20/18 21:56 Dose: 5 mg Ondansetron HCl (Zofran) 4 mg IV Q4H PRN PRN Reason: NAUSEA / VOMITING Phenobarbital (Phenobarbital) 32.4 mg PO TID DBERA Stop: 08/26/18 21:01 Phenytoin Sodium (Dilantin Er Cap) 100 mg PO TID DEBRA Stop: 09/06/18 21:01 Last Admin: 08/21/18 14:54 Dose: 100 mg Sodium Chloride (Normal Saline Flush) 10 ml IV BID [facility] Stop: 09/05/18 21:01 Last Admin: 08/21/18 08:47 Dose: 10 ml Tamsulosin HCl (Flomax) 0.4 mg PO BID [facility] Stop: 09/18/18 21:01 Last Admin: 08/21/18 08:46 Dose: 0.4 mg Microbiology Results 08/06/18 14:05 Blood - Blood Aerobic Blood Culture - Final No growth in 5 days. 08/06/18 14:05 Blood - Blood Anaerobic Blood Culture - Final No growth in 5 days. 08/06/18 13:50 Blood - Blood Aerobic Blood Culture - Final No growth in 5 days. 08/06/18 13:50 Blood - Blood Anaerobic Blood Culture - Final No growth in 5 days. Assessment/ Plan: Nephrology. Doing well. CPS stable without CP or SOB. +Urine output No acute events overnight. Vitals, medications, blood work and imaging reviewed in the chart. General: Alert, In no apparent distress, Cooperative HEENT: Atraumatic, Mucous membr. moist/pink Neck: Supple Respiratory: Clear to auscultation bilaterally Cardiovascular: No edema, Regular rate/rhythm, No rubs Gastrointestinal: Soft and benign, Non-distended Musculoskeletal: No clubbing, No contractures Integumentary: No rashes, No cyanosis Neurological: Normal speech Serum creatinine: 0.9(Aug 17); 2.73(Aug 19). Blood work reviewed in the chart. Imagings Data: EXAM DESCRIPTION: US - Renal Ultrasound-Complete - 08/19/2018 9:25 am CLINICAL HISTORY: . Acute renal failure COMPARISON: 2014 FINDINGS: The right kidney measures 13 cm with an increased echotexture. A 5.6 centimeter right renal cyst The left kidney measures cm with an increased echotexture. Hydronephrosis is not seen. IMPRESSION: A 5.6 centimeter right renal cyst Increased renal echotexture consistent with parenchymal disease Conclusions/Impression: GYPSY suspicious for multi-factorial ATN. Differential includes vancomycin toxicity in the setting of recent IV contrast exposure, Pre-Renal Azotemia, ATN. Persistent Hypernatremia suspicious for possible underlying Diabetes Insipidus. Hypokalemia. HTN. Anemia in chronic illness. Hypocalcemia. Mild Rhabdomyolysis. Hypoalbuminemia. P/ Continue current POC and Medications. Gentle IVF. Agree with holding vancomycin. No NSAIDs. AM labs. Daily weight. If the patient is ready for discharge and able to maintain adequate hydration, consider discharging back to the SNF with a repeat BMP in 4-7 days. The ATN should continue to improve over the next several days to weeks.
[2018-08-21] MEDS: LISINOPRIL 10 MG TAB PO SCH (21:29)
[2018-08-21] MEDS: PHENOBARBITAL 32.4 MG TABLET PO SCH (21:29)
[2018-08-21] MEDS: OLANZapine 2.5 MG TAB PO SCH (21:30)
[2018-08-22] MEDS: NACHLORIDE 0.45% 1,000 ML IV SCH ×3 (01:20→21:11)
[2018-08-22] MEDS: ACETAMINOPHEN 500 MG TAB PO PRN (04:59)
[2018-08-22 06:19] LABS: Potassium 3.4 mmol/L (3.5-5.1)
[2018-08-22] MEDS ORDERED: POTASSIUM 25 MEQ EFFERV TAB PO ONE (07:00)
[2018-08-22] MEDS: PHENYTOIN ER 100 MG CAP PO SCH ×3 (08:27→21:10)
[2018-08-22] MEDS: CALCITROL 0.25 MCG CAP PO SCH (08:27)
[2018-08-22] MEDS: ARIPiprazole 5 MG TAB PO SCH (08:27)
[2018-08-22] MEDS: PHENOBARBITAL 32.4 MG TABLET PO SCH ×3 (08:28→21:11)
[2018-08-22] MEDS: VITAMIN D 5,000 UNIT CAP PO SCH (08:28)
[2018-08-22] MEDS: METOPROLOL TAR 25 MG TAB PO SCH ×2 (08:28→21:09)
[2018-08-22] MEDS: TAMSULOSIN 0.4 MG SR CAP PO SCH ×2 (08:28→21:11)
--- NOTE | 2018-08-22 15:44 | PN ---
Date of Progress Note: 08/22/2018 Subjective: The patient was seen this morning for followup, lying in bed, not in any distress. Objective: Vital Signs: Reviewed. HEENT: Examination unremarkable. Lungs: Clear to auscultation. Heart: Sounds normal. Abdomen: Soft. Bowel sounds normal. No guarding, rigidity, tenderness, or distention. Extremities: No leg edema. Laboratory Data: Sodium 145, potassium 3.4, chloride 112, bicarb 26, BUN 11, creatinine 2.15, glucos e 78. Impression: 1.Acute renal failure. 2.Hypertension. 3.Seizure disorder. 4.Schizophrenia. Plan: We will continue current medication. Continue current IV fluid. The patient's renal function is slowly improving. We will monitor renal function on a daily basis. I will see him tomorrow for followup. Ambulation was encouraged. Possible discharge to go to [facility] on Friday or Friday depending on his renal function. JEANNIE/MODL Voice ID: [id number] Report ID: [id number]
[2018-08-22] MEDS ORDERED: POTASSIUM CL SA 10 MEQ TAB PO ONE (17:00)
[2018-08-22] MEDS: OLANZapine 2.5 MG TAB PO SCH (21:09)
[2018-08-22] MEDS: LISINOPRIL 10 MG TAB PO SCH (21:10)
[2018-08-23 05:35] LABS: Absolute Lymphocytes (CBC) 0.9 K/uL (0.7-4.9); Absolute Monocytes 0.6 K/uL (0.1-1.3); Absolute Neutrophil 4.6 K/uL (1.8-8.0); Basophils % 1.1 % (0-1.3); Eosinophils % 6.2 % (0-4.4); Hematocrit 30.5 % (39.6-49.0); Lymphocytes % 13.8 % (15.3-44.8); MPV 8.5 fL (7.6-11.3); Monocytes % 8.5 % (3.3-12.3); RBC Red Blood Cell Count 3.19 M/uL (4.33-5.43)
[2018-08-23 05:51] LABS: Albumin 2.5 g/dL (3.4-5.0); Bilirubin Total 0.3 mg/dL (0.2-1.0); Potassium 3.6 mmol/L (3.5-5.1); Protein, Total 5.7 g/dL (6.4-8.2)
[2018-08-23] MEDS ORDERED: MAGNESIUM SULFATE 1 gm IVPB 1 GM/100 ML BAG IV ONE (06:00)
[2018-08-23] MEDS ORDERED: POTASSIUM CL SA 10 MEQ TAB PO ONE (07:00)
[2018-08-23] MEDS: ARIPiprazole 5 MG TAB PO SCH (09:00)
[2018-08-23] MEDS: NACHLORIDE 0.45% 1,000 ML IV SCH ×2 (09:19→18:12)
[2018-08-23] MEDS: CALCITROL 0.25 MCG CAP PO SCH (09:20)
[2018-08-23] MEDS: VITAMIN D 5,000 UNIT CAP PO SCH (09:20)
[2018-08-23] MEDS: PHENYTOIN ER 100 MG CAP PO SCH ×3 (09:20→20:26)
[2018-08-23] MEDS: METOPROLOL TAR 25 MG TAB PO SCH ×2 (09:20→20:27)
[2018-08-23] MEDS: PHENOBARBITAL 32.4 MG TABLET PO SCH ×3 (09:21→20:26)
[2018-08-23] MEDS: TAMSULOSIN 0.4 MG SR CAP PO SCH ×2 (09:21→20:26)
--- NOTE | 2018-08-23 12:37 | PN ---
Date of Progress Note: 08/23/2018 Subjective: The patient was seen this morning for followup, lying in bed, not in distress. Denies a ny chest pain, shortness of breath, or abdominal pain. No nausea. No vomiting. Objective: Vital Signs: Reviewed. HEENT: Unremarkable. Lungs: Clear to auscultation. Heart: Sounds normal. Abdomen: Soft. Bowel sounds normal. No guarding, rigidity, tenderness, or distention. Extremities: No leg edema. Laboratory Data: White count 6.5, hemoglobin 10.3, platelets 281. Sodium 146, potassium 3.6, chlori de 111, bicarb 26, BUN 10, creatinine 2.04, glucose 83, magnesium 1.8. Liver function tests unremark able. Impression: 1.Acute renal failure. 2.Seizure disorder. 3.Schizophrenia. 4.Hypertension. Plan: We will continue current medications. Continue IV fluid. Renal function is slowly improving. [facility], and this was discussed with the patien t today. We will monitor blood work tomorrow. JEANNIE/MODL Voice ID: [id number] Report ID: [id number]
[2018-08-23] MEDS: AMLODIPINE 2.5 MG TAB PO SCH (13:55)
[2018-08-23] MEDS: OLANZapine 2.5 MG TAB PO SCH (20:27)
[2018-08-23] MEDS: LISINOPRIL 10 MG TAB PO SCH (20:27)
[2018-08-24] MEDS: NACHLORIDE 0.45% 1,000 ML IV SCH ×2 (04:35→14:26)
[2018-08-24 05:14] LABS: Potassium 3.4 mmol/L (3.5-5.1)
[2018-08-24] MEDS ORDERED: POTASSIUM CL SA 10 MEQ TAB PO ONE (06:08)
[2018-08-24] MEDS: ACETAMINOPHEN 500 MG TAB PO PRN (07:53)
[2018-08-24] MEDS: AMLODIPINE 2.5 MG TAB PO SCH (09:00)
[2018-08-24] MEDS: ARIPiprazole 5 MG TAB PO SCH (10:00)
[2018-08-24] MEDS: TAMSULOSIN 0.4 MG SR CAP PO SCH ×2 (10:01→21:14)
[2018-08-24] MEDS: CALCITROL 0.25 MCG CAP PO SCH (10:01)
[2018-08-24] MEDS: VITAMIN D 5,000 UNIT CAP PO SCH (10:01)
[2018-08-24] MEDS: PHENOBARBITAL 32.4 MG TABLET PO SCH ×3 (10:02→21:19)
[2018-08-24] MEDS: METOPROLOL TAR 25 MG TAB PO SCH ×2 (10:02→21:17)
[2018-08-24] MEDS: PHENYTOIN ER 100 MG CAP PO SCH ×3 (10:04→21:19)
[2018-08-24] MEDS: LISINOPRIL 10 MG TAB PO SCH ×2 (10:07→21:19)
--- NOTE | 2018-08-24 11:36 | P.PN ---
Date of Service: 08/24/18 Vital Signs Temp Pulse Resp BP Pulse Ox 99.3 F 89 18 143/67 H 94 08/24/18 08:00 08/24/18 10:07 08/24/18 08:00 08/24/18 10:07 08/24/18 08:00 Medications Acetaminophen (Tylenol -Extra Strength) 500 mg PO Q6H PRN PRN Reason: [id number] Stop: 09/05/18 16:50 Last Admin: 08/24/18 07:53 Dose: 500 mg Amlodipine Besylate (Norvasc) 2.5 mg PO DAILY DEBRA Stop: 09/22/18 14:24 Last Admin: 08/24/18 09:00 Dose: Not Given Aripiprazole (Abilify) 20 mg PO DAILY DEBRA Stop: 09/07/18 09:01 Last Admin: 08/24/18 10:00 Dose: 20 mg Calcitriol (Rocaltrol) 0.5 mcg PO DAILY DEBRA Stop: 09/18/18 21:16 Last Admin: 08/24/18 10:01 Dose: 0.5 mcg Cholecalciferol (Vitamin D 5,000 Iu Cap) 5,000 unit PO DAILY DEBRA Stop: 09/18/18 21:16 Last Admin: 08/24/18 10:01 Dose: 5,000 unit Sodium Chloride (Sodium Chloride 0.45%) 1,000 mls @ 100 mls/hr IV .Q10H DEBRA Stop: 09/19/18 21:01 Last Admin: 08/24/18 04:35 Dose: 1,000 mls Lisinopril (Prinivil) 10 mg PO BID DEBRA Stop: 09/23/18 09:31 Last Admin: 08/24/18 10:07 Dose: 10 mg Metoprolol Tartrate (Lopressor) 12.5 mg PO BID DEBRA Stop: 09/06/18 21:01 Last Admin: 08/24/18 10:02 Dose: 12.5 mg Olanzapine (Zyprexa) 5 mg PO BEDTIME DEBRA Stop: 09/06/18 21:01 Last Admin: 08/23/18 20:27 Dose: 5 mg Ondansetron HCl (Zofran) 4 mg IV Q4H PRN PRN Reason: NAUSEA / VOMITING Phenobarbital (Phenobarbital) 32.4 mg PO TID DEBRA Stop: 08/26/18 21:01 Last Admin: 08/24/18 10:02 Dose: 32.4 mg Phenytoin Sodium (Dilantin Er Cap) 100 mg PO TID [facility] Stop: 09/06/18 21:01 Last Admin: 08/24/18 10:04 Dose: 100 mg Sodium Chloride (Normal Saline Flush) 10 ml IV BID [facility] Stop: 09/05/18 21:01 Last Admin: 08/24/18 10:04 Dose: 10 ml Tamsulosin HCl (Flomax) 0.4 mg PO BID [facility] Stop: 09/18/18 21:01 Last Admin: 08/24/18 10:01 Dose: 0.4 mg Microbiology Results 08/06/18 14:05 Blood - Blood Aerobic Blood Culture - Final No growth in 5 days. 08/06/18 14:05 Blood - Blood Anaerobic Blood Culture - Final No growth in 5 days. 08/06/18 13:50 Blood - Blood Aerobic Blood Culture - Final No growth in 5 days. 08/06/18 13:50 Blood - Blood Anaerobic Blood Culture - Final No growth in 5 days. Assessment/ Plan: Nephrology. Doing well. CPS stable without CP or SOB. +Urine output No acute events overnight. Vitals, medications, blood work and imaging reviewed in the chart. General: Alert, In no apparent distress, Cooperative HEENT: Atraumatic, Mucous membr. moist/pink Neck: Supple Respiratory: Clear to auscultation bilaterally Cardiovascular: No edema, Regular rate/rhythm, No rubs Gastrointestinal: Soft and benign, Non-distended Musculoskeletal: No clubbing, No contractures Integumentary: No rashes, No cyanosis Neurological: Normal speech Serum creatinine: 0.9(Aug 17); 2.73(Aug 19). Blood work reviewed in the chart. Imagings Data: EXAM DESCRIPTION: US - Renal Ultrasound-Complete - 08/19/2018 9:25 am CLINICAL HISTORY: . Acute renal failure COMPARISON: 2014 FINDINGS: The right kidney measures 13 cm with an increased echotexture. A 5.6 centimeter right renal cyst The left kidney measures cm with an increased echotexture. Hydronephrosis is not seen. IMPRESSION: A 5.6 centimeter right renal cyst Increased renal echotexture consistent with parenchymal disease Conclusions/Impression: GYPSY suspicious for multi-factorial ATN. Differential includes vancomycin toxicity in the setting of recent IV contrast exposure, Pre-Renal Azotemia, ATN. Persistent Hypernatremia suspicious for possible underlying Diabetes Insipidus. Hypokalemia. HTN. Anemia in chronic illness. Hypocalcemia. Mild Rhabdomyolysis. Hypoalbuminemia. P/ Continue current POC and Medications. Gentle IVF. Agree with potassium replacement. Increase Lisinopril 10mg BID as tolerated. Agree with holding vancomycin. No NSAIDs. AM labs. Daily weight. If the patient is ready for discharge and able to maintain adequate hydration, consider discharging back to the SNF with a repeat BMP in 4-7 days. The ATN should continue to improve over the next several days to weeks.
[2018-08-24] MEDS: OLANZapine 2.5 MG TAB PO SCH (21:19)
[2018-08-24] MEDS ORDERED: AMLODIPINE 5 MG TAB PO ONE (21:30)
[2018-08-25] MEDS: NACHLORIDE 0.45% 1,000 ML IV SCH ×2 (00:10→11:00)
--- NOTE | 2018-08-25 00:46 | PN ---
Date of Progress Note: 08/24/2018 Subjective: The patient was seen this morning for followup. No new complaints, problems reported by the patient. Lying in bed, not in distress. Objective: HEENT: Unremarkable. Lungs: Clear to auscultation. Heart: Sounds normal. Abdomen: Soft. Bowel sounds normal. No guarding, rigidity, tenderness, distention. Extremities: No leg edema. Laboratory Data: Sodium 142, potassium 3.4, chloride 111, bicarb 25, BUN 8, creatinine 1.87, glucose 90, magnesium 2. Impression: 1.Acute renal failure, improving. 2.Phenobarbital toxicity, improved. 3.Hypertension. 4.Seizure disorder. 5.Schizophrenia. Plan: The patient's renal function is improving very well. Repeat another blood work tomorrow pascale martinez. Replace electrolyte per protocol and possible discharge to go to the long-term tomorrow if hi s condition is stable. JEANNIE/MODL Voice ID: [id number] Report ID: [id number]
[2018-08-25 05:15] LABS: Potassium 3.4 mmol/L (3.5-5.1)
[2018-08-25] MEDS ORDERED: POTASSIUM CL SA 10 MEQ TAB PO ONE (06:00)
[2018-08-25] MEDS: ARIPiprazole 5 MG TAB PO SCH (09:23)
[2018-08-25] MEDS: PHENOBARBITAL 32.4 MG TABLET PO SCH ×2 (09:24→13:37)
[2018-08-25] MEDS: TAMSULOSIN 0.4 MG SR CAP PO SCH (09:24)
[2018-08-25] MEDS: PHENYTOIN ER 100 MG CAP PO SCH ×2 (09:24→13:37)
[2018-08-25] MEDS: METOPROLOL TAR 25 MG TAB PO SCH (09:24)
[2018-08-25] MEDS: AMLODIPINE 2.5 MG TAB PO SCH (09:25)
[2018-08-25] MEDS: CALCITROL 0.25 MCG CAP PO SCH (09:26)
[2018-08-25] MEDS: VITAMIN D 5,000 UNIT CAP PO SCH (09:26)
[2018-08-25] MEDS: LISINOPRIL 10 MG TAB PO SCH (09:26)
[2018-08-25 10:27] VITALS: O2SAT 94
[2018-08-25 12:30] VITALS: BP 117/73; TEMP 97.3
--- NOTE | 2018-08-25 21:16 | P.PN ---
Date of Service: 08/25/18 Vital Signs Temp Pulse Resp BP Pulse Ox 97.3 F 84 20 117/73 96 08/25/18 12:00 08/25/18 12:00 08/25/18 12:00 08/25/18 12:00 08/25/18 12:00 Microbiology Results 08/06/18 14:05 Blood - Blood Aerobic Blood Culture - Final No growth in 5 days. 08/06/18 14:05 Blood - Blood Anaerobic Blood Culture - Final No growth in 5 days. 08/06/18 13:50 Blood - Blood Aerobic Blood Culture - Final No growth in 5 days. 08/06/18 13:50 Blood - Blood Anaerobic Blood Culture - Final No growth in 5 days. Assessment/ Plan: Nephrology. Doing well. CPS stable without CP or SOB. +Urine output No acute events overnight. Vitals, medications, blood work and imaging reviewed in the chart. General: Alert, In no apparent distress, Cooperative HEENT: Atraumatic, Mucous membr. moist/pink Neck: Supple Respiratory: Clear to auscultation bilaterally Cardiovascular: No edema, Regular rate/rhythm, No rubs Gastrointestinal: Soft and benign, Non-distended Musculoskeletal: No clubbing, No contractures Integumentary: No rashes, No cyanosis Neurological: Normal speech Serum creatinine: 0.9(Aug 17); 2.73(Aug 19). Blood work reviewed in the chart. Imagings Data: EXAM DESCRIPTION: US - Renal Ultrasound-Complete - 08/19/2018 9:25 am CLINICAL HISTORY: . Acute renal failure COMPARISON: 2014 FINDINGS: The right kidney measures 13 cm with an increased echotexture. A 5.6 centimeter right renal cyst The left kidney measures cm with an increased echotexture. Hydronephrosis is not seen. IMPRESSION: A 5.6 centimeter right renal cyst Increased renal echotexture consistent with parenchymal disease Conclusions/Impression: GYPSY suspicious for multi-factorial ATN. Differential includes vancomycin toxicity in the setting of recent IV contrast exposure, Pre-Renal Azotemia, ATN. Persistent Hypernatremia suspicious for possible underlying Diabetes Insipidus. Hypokalemia. HTN. Anemia in chronic illness. Hypocalcemia. Mild Rhabdomyolysis. Hypoalbuminemia. P/ Continue current POC and Medications. Gentle IVF. Replete potassium prn. Agree with holding vancomycin. No NSAIDs. AM labs. Daily weight. If the patient is ready for discharge and able to maintain adequate hydration, consider discharging back to the SNF with a repeat BMP in 4-7 days. The ATN should continue to improve over the next several days to weeks.
== END 2018-08-25 16:03 | DRG 948 ==
LOC: ER 13:40 → ERHOLD 16:47 → 2ND 17:36 → 3RD-ICU 08-12 10:10 → 2ND 08-14 18:13
PROVIDERS: ADMIT Internal Medicine; ATTEND Internal Medicine
PROC: 02HV33Z Insertion of Infusion Device into Superior Vena Cava, Percutaneous Approach (ICD-10-PCS; principal; 2018-08-12)
PROC: B548ZZA Ultrasonography of Superior Vena Cava, Guidance (ICD-10-PCS; 2018-08-12)
DX: R41.82 Altered mental status, unspecified (principal); N39.0 Urinary tract infection, site not specified; N17.9 Acute kidney failure, unspecified; M62.82 Rhabdomyolysis; E87.0 Hyperosmolality and hypernatremia; R53.1 Weakness; T42.3X5A Adverse effect of barbiturates, initial encounter; Y92.128 Other place in nursing home as the place of occurrence of the external cause; E87.6 Hypokalemia; G40.909 Epilepsy, unspecified, not intractable, without status epilepticus; I10 Essential (primary) hypertension; E78.2 Mixed hyperlipidemia; K21.9 Gastro-esophageal reflux disease without esophagitis; R73.01 Impaired fasting glucose; K57.90 Diverticulosis of intestine, part unspecified, without perforation or abscess without bleeding; Z90.49 Acquired absence of other specified parts of digestive tract; N31.8 Other neuromuscular dysfunction of bladder; M15.9 Polyosteoarthritis, unspecified; J30.9 Allergic rhinitis, unspecified; N40.1 Benign prostatic hyperplasia with lower urinary tract symptoms; R33.8 Other retention of urine; F20.9 Schizophrenia, unspecified; E83.42 Hypomagnesemia; Z86.73 Personal history of transient ischemic attack (TIA), and cerebral infarction without residual deficits; Z87.891 Personal history of nicotine dependence; N28.1 Cyst of kidney, acquired; E83.51 Hypocalcemia; E88.09 Other disorders of plasma-protein metabolism, not elsewhere classified; D63.8 Anemia in other chronic diseases classified elsewhere; Z85.038 Personal history of other malignant neoplasm of large intestine; Z85.118 Personal history of other malignant neoplasm of bronchus and lung
CPT/HCPCS: 36415; 51702; 70450; 71045; 74177; 76770; 80048; 80053; 80076; 80184; 80185; 80202; 81001; 81003; 81015; 82550; 82553; 82570; 82962; 83605; 83690; 83735; 83874; 84100; 84132; 84145; 84300; 84484; 84550; 85025; 85610; 85730; 87040; 87086; 87088; 88108; 90670; 93005; 97116; 97163; 97164; 97530; 97542; 99285; G0009; J0696; J2543; J3475; J7030; J7060; Q9967

== ENCOUNTER 2019-08-10 11:25 | Observation (INO) | payer OTHER, MEDICARE ==
[2019-08-10] MEDS ORDERED: NA CHLORIDE 0.9% 2,000 ML ONE (11:41)
[2019-08-10 12:03] LABS: Absolute Lymphocytes (CBC) 0.7 K/uL (0.7-4.9); Basophils % 0.5 % (0-1.3); Hematocrit 33.8 % (39.6-49.0); Lymphocytes % 11.5 % (15.3-44.8); MPV 8.1 fL (7.6-11.3); RBC Red Blood Cell Count 3.46 M/uL (4.33-5.43)
[2019-08-10 12:07] LABS: Protime INR 1.13
[2019-08-10] MEDS ORDERED: CEFTRIAXONE/SWI 1gm 1 GM/10 ML SYR ONE (12:10)
[2019-08-10] MEDS ORDERED: ACETAMINOPHEN 160 MG/5 ML UCUP ONE (12:37)
[2019-08-10 12:42] LABS: ALT/SGPT 29 U/L (12-78); AST/SGOT 35 U/L (15-37); Albumin 2.8 g/dL (3.4-5.0); Alkaline Phosphatase 83 U/L (45-117); BUN Blood Urea Nitrogen 30 mg/dL (7-18); Bicarbonate 32 mmol/L (21-32); Bilirubin Direct 0.1 mg/dL (0-0.2); Bilirubin Total 0.2 mg/dL (0.2-1.0); CKMB Creatine Kinase MB 1.3 ng/mL (0.3-3.6); Creatine Phosphokinase 190 U/L (39-308); Glucose Level 140 mg/dL (74-106); Lipase 123 U/L (73-393); Potassium 3.5 mmol/L (3.5-5.1); Protein, Total 6.6 g/dL (6.4-8.2); Sodium Level 144 mmol/L (136-145); Troponin (Emerg Dept Use Only) < 0.02 ng/mL (0.0-0.045)
--- NOTE | 2019-08-10 13:33 | RAD REPORT ---
EXAM DESCRIPTION: Krista Single View08/10/2019 1:18 pm CLINICAL HISTORY: Alteration of consciousness COMPARISON: August 12, 2018 FINDINGS: Postsurgical changes involve the right lung The lungs appear clear of acute infiltrate. The heart is normal size IMPRESSION: No acute abnormalities displayed
--- NOTE | 2019-08-10 13:43 | RAD REPORT ---
EXAM DESCRIPTION: CT - Head Brain Wo Cont - 08/10/2019 1:32 pm CLINICAL HISTORY: Alteration of awareness/confusion COMPARISON: August 2017 TECHNIQUE: Computed axial tomography of the head was obtained. IV contrast was not requested. All CT scans are performed using dose optimization technique as appropriate and may include automated exposure control or mA/KV adjustment according to patient size. FINDINGS: An intracranial bleed is not seen . The ventricles are normal in caliber. No extra-axial fluid collection is noted. 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 Fluid within maxillary ethmoid sinuses IMPRESSION: No acute intracranial abnormality is seen. If patient's symptoms persist MRI of the bra in would be recommended. Fluid within the maxillary ethmoid sinuses may indicate acute sinusitis
[2019-08-10 14:01] LABS: Urine Blood NEGATIVE (NEG); Urine Glucose NEGATIVE (NEG); Urine Protein NEGATIVE (NEG); Urine Specific Gravity >1.030 (1.005-1.030)
[2019-08-10 14:20] LABS: Urine Bacteria <20 /HPF (NONE SEEN); Urine Culture Reflex Order NOT NEEDED; Urine RBC NONE SEEN /HPF (NONE SEEN)
--- NOTE | 2019-08-10 14:32 | ER ---
Nurse's Notes [facility] Name: Robbie Dela Cruz Age: 69 yrs Sex: Male : 1950 Arrival Date: 08/10/2019 Time: 11:27 Bed 8 Private MD: Diagnosis: Weakness;Altered mental status, unspecified;Adult failure to thrive Presentation: 08/10 11:28 Presenting complaint: EMS states: patient is from [facility], he has been mg2 altered for months now, slowly deteriorating but yesterday he was worse like not eating or not responding. BGL- 181, NSR on EKG, bp 104/60, HR-60. Transition of care: patient was received from another setting of care (long-term care facility), [facility]. Onset of symptoms was July 2019. Risk Assessment: Do you want to hurt yourself or someone else? Patient reports no desire to harm self or others. Initial Sepsis Screen: Does the patient meet any 2 criteria? No. Patient's initial sepsis screen is negative. Does the patient have a suspected source of infection? No. Patient's initial sepsis screen is negative. Care prior to arrival: None. 11:28 Method Of Arrival: EMS: [facility] mg2 11:28 Acuity: SANTIAGO 2 mg2 Historical: - Allergies: 11:34 No Known Allergies; mg2 - Home Meds: 11:34 amlodipine-benazepril 5-20 mg Oral cap 1 cap once daily [Active]; benztropine 0.5 mg mg2 Oral tab 1 tab 2 times per day [Active]; clonazepam 1 mg Oral tab 1 tab nightly [Active]; excitalopram 20mg daily [Active]; Latuda 120 mg Oral tab 1 tab once daily [Active]; lorapine 50mg 2 tab nightly [Active]; metoprolol tartrate 25 mg Oral tab 1 tab 2 times per day [Active]; phenobarbital 100 mg Oral tab 1 tab every 8 hours [Active]; Phenytoin 100mg Oral 1 tabs 3 times per day [Active]; - PMHx: 11:34 colon cancer; CVA; Depression; Hypertension; Schizophrenia; Seizures; mg2 - Immunization history:: Flu vaccine status is unknown. - Social history:: Smoking status: unknown. - Ebola Screening: : No symptoms or risks identified at this time. Screenin:37 Abuse screen: unable to answer. Nutritional screening: No deficits noted. Tuberculosis hb screening: No symptoms or risk factors identified. Fall Risk Total Bailon Fall Scale indicates High Risk Score (45 or more points). Fall prevention measures have been instituted. Side Rails Up X 2 Frequent Obs/Assessments Occuring As available patient and family educated on Fall Prevention Program and Strategies. Assessment: 11:56 General: Appears in no apparent distress. comfortable, Behavior is flat, quiet, mg2 semi-conscious. Pain: Denies pain. Neuro: Level of Consciousness is awake, lethargic. Cardiovascular: Capillary refill < 3 seconds Patient's skin is warm and dry. Respiratory: Airway is patent Respiratory effort is even, unlabored, Respiratory pattern is regular, symmetrical. GI: No signs and/or symptoms were reported involving the gastrointestinal system. : Swelling noted on scrotum. EENT: No signs and/or symptoms were reported regarding the EENT system. Derm: Skin is intact, is healthy with good turgor, Skin is pink, warm \T\ dry. normal. Musculoskeletal: Circulation, motion, and sensation intact. Capillary refill < 3 seconds. 12:39 Reassessment: Patient appears in no apparent distress at this time. No changes from hb previously documented assessment. Patient and/or family updated on plan of care and expected duration. Pain level reassessed. 13:26 Reassessment: Patient appears in no apparent distress at this time. Patient and/or mg2 family updated on plan of care and expected duration. Pain level reassessed. 13:26 Reassessment: sent to ct scan via stretcher. mg2 13:54 Reassessment: Patient appears in no apparent distress at this time. Patient and/or hb family updated on plan of care and expected duration. Pain level reassessed. 14:37 Reassessment: Patient appears in no apparent distress at this time. Patient and/or mg2 family updated on plan of care and expected duration. Pain level reassessed. 15:30 Reassessment: Patient appears in no apparent distress at this time. No changes from hb previously documented assessment. Patient and/or family updated on plan of care and expected duration. Pain level reassessed. 15:43 Reassessment: critical lab result for phenobarbital -59.4 relayed by drop crew laborer and mg2 provider made aware. 16:45 Reassessment: Patient appears in no apparent distress at this time. No changes from hb previously documented assessment. Patient and/or family updated on plan of care and expected duration. Pain level reassessed. 18:08 Reassessment: Patient appears in no apparent distress at this time. No changes from hb previously documented assessment. Patient and/or family updated on plan of care and expected duration. Pain level reassessed. Vital Signs: 11:33 BP 93 / 63; Pulse 65; Resp 18; Temp 96.8(TE); Pulse Ox 98% on R/A; Pain 0/10; mg2 11:39 Weight 100 kg; Height 5 ft. 10 in. (177.80 cm); hb 12:39 BP 122 / 72; Pulse 70; Resp 19; Pulse Ox 100% on R/A; hb 13:45 BP 104 / 62; Pulse 61; Resp 15; Pulse Ox 99% on R/A; hb 14:35 BP 112 / 69; Pulse 65; Resp 16; Pulse Ox 100% on R/A; hb 15:30 BP 108 / 68; Pulse 58; Resp 15; Pulse Ox 98% on R/A; hb 16:45 BP 106 / 71; Pulse 56; Resp 14; Pulse Ox 96% on R/A; hb 17:28 BP 110 / 65; Pulse 66; Resp 18; Pulse Ox 100% on R/A; mg2 18:02 BP 142 / 74; Pulse 63; Resp 18; Pulse Ox 98% on R/A; mg2 11:39 Body Mass Index 31.63 (100.00 kg, 177.80 cm) hb ED Course: 11:27 Patient arrived in ED. iw 11:28 Kyle Kaiser MD is Attending Physician. kdr 11:31 Triage completed. mg2 11:34 Arm band placed on. mg2 11:37 Patient has correct armband on for positive identification. Bed in low position. Call light in reach. Side rails up X2. plant operations vice president on. Pulse ox on. NIBP on. 11:40 Maintain EMS IV. Dressing intact. Good blood return noted. Site clean \T\ dry. Gauge \T\ hb site: 20g LEFT AC. 11:45 Initial lab(s) drawn, sent to lab. First set of blood cultures drawn by Raissa SHERMAN. hb 11:48 Lazaro cath inserted, using sterile technique, 16 Fr., by ma, balloon inflated, to hb gravity drainage, urine specimen collected. Patient tolerated well. 11:57 No provider procedures requiring assistance completed. mg2 12:09 Cholo Marsh, RN is Primary Nurse. mg2 13:24 Chest Single View XRAY In Process Unspecified. EDMS 13:36 CT Head Brain wo Cont In Process Unspecified. EDMS 14:30 Jose Tello MD is Hospitalizing Provider. kdr 18:36 Patient admitted, IV remains in place. mg2 Administered Medications: 11:46 Drug: NS 0.9% (30 ml/kg) 30 ml/kg Route: IV; Rate: bolus; Site: right antecubital; hb 18:06 Follow up: Response: No adverse reaction; IV Status: Completed infusion; IV Intake: mg2 3000ml 12:09 Drug: Rocephin - (cefTRIAXone) 1 grams Route: IVPB; Infused Over: 30 mins; Site: right [facility] antecubital; 15:04 Follow up: Response: No adverse reaction; IV Status: Completed infusion mg2 Point of Care Testing: Blood Glucose: 11:44 Blood Glucose: 121 mg/dL; hb Ranges: Intake: 14:35 PO: 0ml; Total: 0ml. hb 18:06 IV: 3000ml; Total: 3000ml. mg2 Output: 12:10 Urine: 800ml (Lazaro); Total: 800ml. mg2 14:35 Urine: 500ml (Lazaro); Total: 1300ml. hb Outcome: 14:31 Decision to Hospitalize by Provider. kdr 18:35 Admitted to Med/surg accompanied by tech, via stretcher, room 216, Report called to JAZMYN rogers RN 18:35 Condition: stable 19:22 Patient left the ED. mg2 Signatures: Dispatcher [employer] EDWA Kyle Kaiser MD MD [facility] [address] Vanesa Wallace RN RN Alta Paredes RN RN Cholo Marsh, WHIT RN mg2 Corrections: (The following items were deleted from the chart) 11:39 11:39 83.91 kg; Height 5 ft. 10 in.; BMI: 26.5; hb hb 15:32 15:31 Reassessment: Report called to Marielle SHERMAN at [facility] hb hb
--- NOTE | 2019-08-10 14:33 | EDPHYS ---
Physician Documentation [facility] Name: Robibe Dela Cruz Age: 69 yrs Sex: Male : 1950 Arrival Date: 08/10/2019 Time: 11:27 Bed 8 Private MD: ED Physician Kyle Kaiser HPI: 08/10 16:59 This 69 yrs old Male presents to ER via EMS with complaints of Altered Mental kdr Status. 16:59 The patient presents with confusion, decreased mental status, decreased responsiveness. kdr Onset: The symptoms/episode began/occurred today. Possible causes: CVA or TIA, sepsis, Phenobarb toxicity. Associated signs and symptoms: The patient has no apparent associated signs or symptoms. Current symptoms: In the emergency department the patient's symptoms are unchanged from the initial presentation. Patient's baseline: Neuro: not alert, Motor: Left sided weakness due to prior CVA, Ambulation: unable to walk, Speech: slow, slurred, The patient has a previous history of CVA. It is unknown whether or not the patient has had similar symptoms in the past. It is unknown whether or not the patient has recently seen a physician. Historical: - Allergies: 11:34 No Known Allergies; mg2 - Home Meds: 11:34 amlodipine-benazepril 5-20 mg Oral cap 1 cap once daily [Active]; benztropine 0.5 mg mg2 Oral tab 1 tab 2 times per day [Active]; clonazepam 1 mg Oral tab 1 tab nightly [Active]; excitalopram 20mg daily [Active]; Latuda 120 mg Oral tab 1 tab once daily [Active]; lorapine 50mg 2 tab nightly [Active]; metoprolol tartrate 25 mg Oral tab 1 tab 2 times per day [Active]; phenobarbital 100 mg Oral tab 1 tab every 8 hours [Active]; Phenytoin 100mg Oral 1 tabs 3 times per day [Active]; - PMHx: 11:34 colon cancer; CVA; Depression; Hypertension; Schizophrenia; Seizures; mg2 - Immunization history:: Flu vaccine status is unknown. - Social history:: Smoking status: unknown. - Ebola Screening: : No symptoms or risks identified at this time. ROS: 16:59 Constitutional: Negative for fever, chills, and weight loss. kdr 16:59 Unable to obtain ROS due to altered mental status. Exam: 16:59 Constitutional: This is a well developed, well nourished patient who is somnolent but kdr in no acute distress. Head/Face: Normocephalic, atraumatic. Eyes: Pupils equal round and reactive to light, extra-ocular motions intact. Lids and lashes normal. Conjunctiva and sclera are non-icteric and not injected. Cornea within normal limits. Periorbital areas with no swelling, redness, or edema. Neck: Trachea midline, no thyromegaly or masses palpated, and no cervical lymphadenopathy. Supple, full range of motion without nuchal rigidity, or vertebral point tenderness. No Meningismus. Chest/axilla: Normal chest wall appearance and motion. Nontender with no deformity. No lesions are appreciated. Cardiovascular: Regular rate and rhythm with a normal S1 and S2. No gallops, murmurs, or rubs. Normal PMI, no JVD. No pulse deficits. Respiratory: Lungs have equal breath sounds bilaterally, clear to auscultation and percussion. No rales, rhonchi or wheezes noted. No increased work of breathing, no retractions or nasal flaring. Abdomen/GI: Soft, non-tender, with normal bowel sounds. No distension or tympany. No guarding or rebound. No evidence of tenderness throughout. Back: No spinal tenderness. No costovertebral tenderness. Full range of motion. Skin: Warm, dry with normal turgor. Normal color with no rashes, no lesions, and no evidence of cellulitis. MS/ Extremity: Pulses equal, no cyanosis. Neurovascular intact. Full, normal range of motion. 16:59 Neuro: LEFT SIDED WEAKNESS BUT MOVES RIGHT SIDE TO COMMAND. Vital Signs: 11:33 BP 93 / 63; Pulse 65; Resp 18; Temp 96.8(TE); Pulse Ox 98% on R/A; Pain 0/10; mg2 11:39 Weight 100 kg; Height 5 ft. 10 in. (177.80 cm); hb 12:39 BP 122 / 72; Pulse 70; Resp 19; Pulse Ox 100% on R/A; hb 13:45 BP 104 / 62; Pulse 61; Resp 15; Pulse Ox 99% on R/A; hb 14:35 BP 112 / 69; Pulse 65; Resp 16; Pulse Ox 100% on R/A; hb 15:30 BP 108 / 68; Pulse 58; Resp 15; Pulse Ox 98% on R/A; hb 16:45 BP 106 / 71; Pulse 56; Resp 14; Pulse Ox 96% on R/A; hb 17:28 BP 110 / 65; Pulse 66; Resp 18; Pulse Ox 100% on R/A; mg2 18:02 BP 142 / 74; Pulse 63; Resp 18; Pulse Ox 98% on R/A; mg2 11:39 Body Mass Index 31.63 (100.00 kg, 177.80 cm) hb MDM: 14:31 Patient medically screened. kdr 16:59 Data reviewed: vital signs, nurses notes, lab test result(s), radiologic studies. kdr Counseling: I had a detailed discussion with the patient and/or guardian regarding: the historical points, exam findings, and any diagnostic results supporting the discharge/admit diagnosis, lab results, radiology results, the need for further work-up and treatment in the hospital. Physician consultation: Jose Tello MD regarding admission, and will see patient in inpatient room, later today. 08/10 11:35 Order name: Basic Metabolic Panel; Complete Time: 12:57 mg2 08/10 11:35 Order name: Blood Culture Adult (2) mg2 08/10 11:35 Order name: CBC with Diff; Complete Time: 12:57 mg2 08/10 11:35 Order name: Ckmb; Complete Time: 12:57 mg2 08/10 11:35 Order name: CPK; Complete Time: 12:57 mg2 08/10 11:35 Order name: Lactate; Complete Time: 12:57 mg2 08/10 11:35 Order name: LFT's; Complete Time: 12:57 mg2 08/10 11:35 Order name: Lipase; Complete Time: 12:57 mg2 08/10 11:35 Order name: Procalcitonin; Complete Time: 12:57 mg2 08/10 11:35 Order name: Protime (+inr); Complete Time: 12:57 mg2 08/10 11:35 Order name: Ptt, Activated; Complete Time: 12:57 mg2 08/10 11:35 Order name: Troponin (emerg Dept Use Only); Complete Time: 12:57 mg2 08/10 11:35 Order name: Urine Microscopic Only; Complete Time: 14:27 mg2 08/10 11:56 Order name: Glucose, Ancillary Testing; Complete Time: 12:57 EDMS 08/10 11:35 Order name: Chest Single View XRAY; Complete Time: 14:07 mg2 08/10 11:35 Order name: Accucheck; Complete Time: 11:54 mg2 08/10 11:35 Order name: Cardiac monitoring; Complete Time: 11:54 mg2 08/10 11:35 Order name: EKG - Nurse/Tech; Complete Time: 11:54 mg2 08/10 11:35 Order name: IV Saline Lock - Large Bore; Complete Time: 11:54 mg2 08/10 11:35 Order name: Labs collected and sent; Complete Time: 11:54 mg2 08/10 11:35 Order name: O2 Per Protocol; Complete Time: : mg2 08/10 11:35 Order name: O2 Sat Monitoring; Complete Time: : mg2 08/10 11:35 Order name: Urine Dipstick-Ancillary (obtain specimen); Complete Time: : mg2 08/10 12:17 Order name: Urine Dipstick--Ancillary (enter results); Complete Time: 14:07 bd 08/10 13:18 Order name: CT Head Brain wo Cont; Complete Time: 14:07 kdr 08/10 14:29 Order name: Dilantin; Complete Time: 15:48 kdr 08/10 14:29 Order name: Phenobarbital; Complete Time: 15:48 kdr Administered Medications: 11:46 Drug: NS 0.9% (30 ml/kg) 30 ml/kg Route: IV; Rate: bolus; Site: right antecubital; hb 18:06 Follow up: Response: No adverse reaction; IV Status: Completed infusion; IV Intake: mg2 3000ml 12:09 Drug: Rocephin - (cefTRIAXone) 1 grams Route: IVPB; Infused Over: 30 mins; Site: right mg2 antecubital; 15:04 Follow up: Response: No adverse reaction; IV Status: Completed infusion mg2 Point of Care Testing: Blood Glucose: 11:44 Blood Glucose: 121 mg/dL; hb Ranges: Critical Glucose Levels:Adult <50 mg/dl or >400 mg/dl <40 mg/dl or >180 mg/dl Disposition: 08/10/19 14:31 Hospitalization ordered by Jose Tello for Inpatient Admission. Preliminary diagnosis are Weakness, Altered mental status, unspecified, Adult failure to thrive. - Bed requested for Telemetry/MedSurg (Inpatient). - Status is Inpatient Admission. mg2 - Condition is Fair. - Problem is new. - Symptoms are unchanged. UTI on Admission? No Signatures: Dispatcher [employer] EDBlanka Gilliam RN RN Kyle Kaiser MD MD [facility] Alta Paredes RN RN Cholo Marsh RN RN mg2 Corrections: (The following items were deleted from the chart) 18:06 14:31 Hospitalization Ordered by Jose Tello MD for Inpatient Admission. Preliminary dw diagnosis is Weakness; Altered mental status, unspecified; Adult failure to thrive. Bed requested for Telemetry/MedSurg (Inpatient). Status is Inpatient Admission. Condition is Fair. Problem is new. Symptoms are unchanged. UTI on Admission? No. kdr 19:22 18:06 08/10/2019 14:31 Hospitalization Ordered by Jose Tello MD for Inpatient mg2 Admission. Preliminary diagnosis is Weakness; Altered mental status, unspecified; Adult failure to thrive. Bed requested for Telemetry/MedSurg (Inpatient). Status is Inpatient Admission. Condition is Fair. Problem is new. Symptoms are unchanged. UTI on Admission? No. dw
[2019-08-10 14:55] LABS: Phenytoin (Dilantin) Level 15.7 ug/mL (10.0-20.0)
[2019-08-10] MEDS ORDERED: D5 0.9 NS 1,000 ML IV SCH (20:00)
[2019-08-10] MEDS: D5 0.9 NS 1,000 ML IV SCH (20:19)
[2019-08-10 20:30] VITALS: BMI 22.3
--- NOTE | 2019-08-10 20:47 | RAD REPORT ---
EXAM DESCRIPTION: RAD - Hip Bilateral With Pelvis - 08/10/2019 8:40 pm CLINICAL HISTORY: pain, s/p fall Fall, pain COMPARISON: Pelvis dated 02/12/2018 FINDINGS: Mild degenerative changes are present in both hips. No acute fracture or dislocation is ev ident.
--- NOTE | 2019-08-11 02:53 | HP ---
Date of Admission: 08/10/2019 Chief Complaint: Trouble swallowing, feeling weak. History Of Present Illness: A 69-year-old male patient living [facility], who is losing weight over a period of time and has reduced appetite. He has had some falls at [facility] as well from t rolan to time. Today, he was having trouble swallowing at the [facility]. This actually started yes terday and today nurse contacted me and she was advised to send the patient to the emergency room. A fter the patient was evaluated in the ER, he was admitted to the hospital. I saw him in the hospital this evening. His family members were with him. He appears very weak, but still able to recognize me, answers questions appropriately. He is complaining of pain in his both groin and upper thigh are a. Denies any other specific complaints. Review of Systems: Musculoskeletal: As mentioned above. GI: As mentioned above. Constitutional: As mentioned above. All other systems reviewed and negative. Allergies: NO KNOWN ALLERGIES. Medications: List reviewed. Social History: Negative for smoking or alcohol use. Family History: Significant for hypertension, diabetes, coronary artery disease. Past Surgical History: Right-sided hemicolectomy in September 2014 for colon cancer, hydrocele repair , appendectomy, skin cancer removal, partial lobectomy from right lung in 1984, and it was not due to cancer. Cardiac cath done April 2015, showed normal coronaries. Past Medical History: Significant for seizure disorder, gastroesophageal reflux disease, hypertensio n, hyperlipidemia, colon cancer, impaired fasting glucose, diverticulosis, bladder hypertonicity schi zophrenia, allergic rhinitis, osteoarthritis at multiple sites. Physical Examination: Vital Signs: When he came into emergency room, blood pressure 93/63, pulse 65, respiratory rate 18, temperature 96.8, oxygen saturation 98%, height 5 feet 10 inches, weight was recorded as 100 kg in th e emergency room, which is not accurate as I remember his weight at the [facility] was around 175-1 76 pounds according to my recollection, so current hospital weight is not accurate. General: The patient appears very weak, tired looking, not in any distress. HEENT: Head atraumatic, normocephalic. Conjunctivae nonerythematous. Sclerae white. Mouth, no thr ush or edema noted. Ears/Nose, no mass, lesion, discharge noted. Neck: Supple. No JVD, lymph nodes, bruit, thyromegaly noted. Lungs: Bilateral good equal air entry. Clear to auscultation. No rhonchi. No rales. Heart: Normal heart sounds, no murmur or gallop. Abdomen: Soft, bowel sounds normal. No guarding, rigidity, tenderness, mass, hepatosplenomegaly, dis tention, or bruit noted. Extremities: No leg edema. No calf tenderness. Skin: Has erythematous skin on his buttocks consistent with stage I decubitus area. No open wound. Lymphatics: No lymph node enlargement in neck, supraclavicular, infraclavicular region. Neuro: No focal neurological deficit. Chest: Unremarkable. External Genitalia: Deferred. Rectal: Deferred. DAMAGE INSIDE ADJUSTER: Spastic deformity of left upper extremity, which is chronic. Laboratory Data: White count 6.4, hemoglobin 11.3, platelets 164. Sodium 144, potassium 3.5, chlori de 108, bicarb 32, BUN 30, creatinine 1.01, glucose 140. Liver function tests unremarkable. Troponi n less than 0.02. Procalcitonin less than 0.05. Lactic acid level 1.2. Urinalysis negative. Pheno barbital level 59.4, normal range is 15-40. Dilantin level 15.7. Chest x-ray, no acute cardiopulmon [place] changes. CAT scan of the head, no acute intracranial changes. Impression: 1.Volume depletion. 2.Dehydration. 3.Anemia. 4.Phenobarbital toxicity. 5.Weight loss. 6.Dysphagia. 7.Colon cancer. 8.Seizure disorder. 9.Schizophrenia. 10.Gastroesophageal reflux disease. 11.Hyperlipidemia. 12.Hypertension. 13.Impaired fasting glucose. 14.Diverticulosis. 15.Osteoarthritis on multiple sites. Plan: We will admit patient to hospital for further evaluation and management of this problem. Mirna ent is appropriate for inpatient and is expected to spend 2 midnights in the hospital. We will go ah ead and keep him n.p.o. tomorrow morning. We will have speech therapist evaluate him. Get modified barium swallow test done. We will give him IV fluid. Fall precaution was ordered. Air mattress was ordered. We will go ahead and apply foam dressing to his buttock area for skin protection. We will get a bilateral hip and pelvis x-ray done. MRI of brain done tomorrow morning. Repeat Dilantin and phenobarbital level in the morning. There is no evidence of any infection anywhere. I did talk to patient's family member regarding his overall poor prognosis, his nephew, who has medical power of at [facility]. I talked to him at the hospital today and we discussed also about advance directives. Mirnatiffany jose a is not able to make any decision on his own at this point as he is not completely oriented and roxann hew made the decision for him on the basis of his overall health and poor prognosis. In the event of cardiopulmonary arrest, he informed me that the patient would not have wanted any CPR, defibrillatio n or ventilator support and DNR order was written in the chart. We also talked about possibility of feeding tube placement if that becomes necessary after swallowing evaluation and he will think about it and let me know if he need to make the decision at some point. If we do not find any definite hernando son for his declining health, then hospice care may become necessary in the near future and we discussed about that as well. I will see him celina orrow morning for followup. JEANNIE/MODL Voice ID: [id number]
[2019-08-11] MEDS: D5 0.9 NS 1,000 ML IV SCH (03:23)
[2019-08-11 05:08] LABS: Phenytoin (Dilantin) Level 15.1 ug/mL (10.0-20.0)
[2019-08-11] MEDS ORDERED: PHENYTOIN ER 100 MG CAP PO SCH (09:00)
[2019-08-11] MEDS ORDERED: METOPROLOL TAR 25 MG TAB PO SCH (09:00)
[2019-08-11] MEDS ORDERED: DIVALPROEX DR 500MG TAB PO SCH (09:00)
[2019-08-11 09:10] VITALS: BP 148/75; TEMP 97.9
[2019-08-11] MEDS ORDERED: LORazepam 2 MG/ML VIAL IV ONE (09:25)
[2019-08-11 10:35] VITALS: O2SAT 98
--- NOTE | 2019-08-11 11:45 | RAD REPORT ---
EXAM DESCRIPTION: RAD - Barium Swallow Modified - 08/11/2019 11:22 am CLINICAL HISTORY: swallowing evaluation Dysphagia COMPARISON: Renal Ultrasound-Complete dated 08/19/2018 TECHNIQUE: The patient was given liquid, semi-solid and solid forms of barium. Lateral view fluorosc opic imaging was performed in conjunction with speech pathology service. FINDINGS: laryngeal pentration : cleared with thin by straw on 3rd consecutive sip pharyngeal residue: vallecular mild with all other : study limited by pts behavior, cognition, and poor posture , 1 sec swallow delay , mild esoph ageal stasis in upper esophagus Total fluoroscopy time: 3 minutes and 25 seconds
[2019-08-11] MEDS ORDERED: TAMSULOSIN 0.4 MG SR CAP PO SCH (21:00)
[2019-08-11] MEDS ORDERED: ARIPiprazole 5 MG TAB PO SCH (21:00)
--- NOTE | 2019-08-12 04:12 | DS ---
Date of Discharge: 08/11/2019 Disposition: Discharged to go back to [facility]. Physical Examination: HEENT: Unremarkable. Lungs: Clear to auscultation. Heart: Heart sounds normal. Abdomen: Soft, bowel sounds normal. No guarding, rigidity, tenderness, or distention. Extremities: No leg edema. Discharge Medications And Instructions: 1.Continue all prior home medication except dose of phenobarbital from 1 tablet 3 times a day to 1 t ablet 2 times a day starting tomorrow. Diet will be pureed diet with thin liquids using straw and I have called personally [facility] and given this discharge instruction about medication change and diet instruction to the nurse. 2.Patient to be admitted to hospice care with diagnosis of colon cancer as a hospice diagnosis once family makes a decision to start hospice services. Hospital Course: A 69-year-old male patient, who was brought into emergency room with complaints of trouble swallowing, feeling weak. Please see dictated H and P for more information. After patient w as evaluated in the emergency room, he was admitted to the hospital. His CAT scan of the head was ne gative for any acute changes. Blood work was unremarkable except phenobarbital level was slightly hi gher than normal. He was admitted to the hospital. Overnight his condition remained stable. This m orning, phenobarbital level started to come down, it was still higher than upper normal of therapeuti c range, so we have not given him any phenobarbital today. We should be able to restart it at a lowe r dose. His x-ray of the bilateral hip and pelvis was negative for any acute changes. No fracture. CAT scan of the head was negative for any evidence of stroke or metastatic disease. I wanted to do MRI of brain and the patient was not cooperative. He was agitated, restless, so Ativan 0.5 mg IV x1 dose was given and that did not help at all. So we had to give him more and more medication, but the n one has to worry about respiratory suppression and at this point considering the risk and benefit, we decided not to pursue further MRI and I did call the patient's next of kin, that is patient's neph ew, and talked to him in detail on the phone this morning and explained to him about all these detail s. We also talked yesterday evening with the family and this morning when I called him, I explained him about my recommendation of the patient to go on hospice care considering his declining health at the [facility] over last few months and he understands and he will communicate with the nursing sta ff at the [facility] soon as he makes his decision regarding hospice care. The patient's advance d irective while in the hospital was do not resuscitate as per my discussion with family. The patient was discharged in stable condition back to [facility]. We did obtain modified barium swallow and d iet recommendation was obtained as per Speech Therapy. Final Diagnoses: 1.Volume depletion. 2.Dehydration. 3.Anemia. 4.Phenobarbital toxicity. 5.Weight loss. 6.Dysphagia. 7.Colon cancer. 8.Seizure disorder. 9.Schizophrenia. 10.Gastroesophageal reflux disease. 11.Hypertension. 12.Impaired fasting glucose. 13.Diverticulosis. 14.Osteoarthritis, multiple sites. JEANNIE/MODL Voice ID: [id number] Report ID: [id number]
== END 2019-08-11 13:34 ==
LOC: ER 11:25 → ERHOLD 16:24 → INTOOBSV 16:24 → 2ND 18:36
PROVIDERS: ADMIT Internal Medicine; ATTEND Internal Medicine
DX: E86.0 Dehydration (principal); D64.9 Anemia, unspecified; R53.1 Weakness; T42.3X5A Adverse effect of barbiturates, initial encounter; Y92.009 Unspecified place in unspecified non-institutional (private) residence as the place of occurrence of the external cause; R63.4 Abnormal weight loss; Z68.22 Body mass index [BMI] 22.0-22.9, adult; R13.10 Dysphagia, unspecified; Z85.038 Personal history of other malignant neoplasm of large intestine; G40.909 Epilepsy, unspecified, not intractable, without status epilepticus; F20.9 Schizophrenia, unspecified; K21.9 Gastro-esophageal reflux disease without esophagitis; I10 Essential (primary) hypertension; K57.90 Diverticulosis of intestine, part unspecified, without perforation or abscess without bleeding; M19.90 Unspecified osteoarthritis, unspecified site
CPT/HCPCS: 96365; 87040 ×2; 85025; 80048; 36415; 82550; 85610; 82947; 80076; 83605; 85730; 80184 ×2; 80185 ×2; 84484; 82553; 83690; 84145; 70450; 71045; 73521; 74230; 92611; 51702; 99285; 96366; J0696; J7042 ×2; J7030; G0378 ×3; 81003; 81015